=== PATIENT | male | born 1980 | race Caucasian/White ===

== ENCOUNTER 2020-01-12 14:50 | Outpatient (REF) | payer MEDICAID, SELFPAY ==
--- NOTE | 2020-01-12 | MM_ITS ---
EXAMINATION: MM DIAGNOSTIC DIGITAL BREAST TOMOSYNTHESIS, BILATERAL US DIAGNOSTIC ULTRASOUND BREAST, RIGHT CLINICAL INFORMATION: 39-year-old male with palpable fullness and pain retroareolar right breast for one week. No prior breast imaging. COMPARISON: None (current study represents initial baseline exam). TECHNIQUE: Digital breast tomosynthesis is performed in both the craniocaudal and mediolateral oblique views along with computer-aided detection (CAD). Synthesized 2D images are generated from the tomosynthesis. Ultrasound right breast is targeted to the area of clinical concern retroareolar and periareolar right breast. Grayscale imaging and color Doppler are performed without and with harmonics. FINDINGS: There are scattered areas of fibroglandular density (ACR BI-RADS breast composition Category b). There is typical gynecomastia type pattern retroareolar and central right breast. There is trace involvement retroareolar left breast. There is no mass or architectural abnormality. No abnormal calcifications. The axilla and skin contours are unremarkable. There is no skin thickening or coarsening of the stromal markings. Ultrasound right breast demonstrates gynecomastia type parenchymal pattern. There is no additional mass or architectural abnormality or duct ectasia. No skin thickening or edema tracking in soft tissue planes. Results are discussed with the patient at time of visit using an animal geneticist. IMPRESSION: Asymmetric gynecomastia, greater on right. ASSESSMENT: BI-RADS 2: Benign RECOMMENDATION: Patient should be managed based on the clinical impression.
== END 2020-01-12 14:51 | disposition home or self-care (01) ==
LOC: HO.MAMMO 14:50
PROVIDERS: Visit Provider Emergency Medicine
DX: N64.4 Mastodynia (principal)
CPT/HCPCS: 76642; 77062; 77066; 78013

== ENCOUNTER 2020-07-21 11:39 | Outpatient (REF) | payer MEDICAID, SELFPAY ==
[2020-07-21 12:10] LABS: COVID-19 Test Negative (Negative); IDNOW Serial# 55D5AD1C
== END 2020-07-21 11:40 | disposition home or self-care (01) ==
LOC: HO.LAB 11:39
PROVIDERS: Visit Provider Internal Medicine
DX: Z20.822 Contact with and (suspected) exposure to COVID-19 (principal)
CPT/HCPCS: 36415; 87635; C9803

== ENCOUNTER 2024-01-20 12:02 | Outpatient (REF) | payer MEDICAID, SELFPAY ==
[2024-01-20 13:51] LABS: Estimated Average Glucose 108 mg/dL; Hemoglobin A1C 130.8345 umol/L; Hemoglobin A1c % 5.4 % (<6.0); Total Hemoglobin (HGBA1C) 3699.9177 umol/L
[2024-01-20 14:10] LABS: Alanine Aminotransferase 21 U/L (0-40); Albumin Level 4.4 g/dL (3.5-5.0); Alkaline Phosphatase 80 U/L (39-117); Anion Gap 12 (12-20); Aspartate Amino Transferase 29 U/L (5-37); Bilirubin Direct 0.1 mg/dL (0.0-0.5); Bilirubin Total 0.3 mg/dL (0.0-1.0); Blood Urea Nitrogen 13 mg/dL (9-16); Calcium 9.7 mg/dL (8.4-10.2); Carbon Dioxide 29 mmol/L (22-29); Chloride 103 mmol/L (96-108); Cholesterol 152 mg/dL (<200); Estimated Glomerular Filt Rate > 60; Glucose Random 101 mg/dL (60-115); HDL Cholesterol 36 mg/dL (>40); Potassium 3.7 mmol/L (3.3-5.1); Sodium 140 mmol/L (135-145); Triglycerides 431 mg/dL (<150)
[2024-01-20 14:28] LABS: TSH reflex Free T4 2.91 uIU/mL (0.32-4.0); Vitamin D 25-OH Total 25.5 ng/mL (>30)
[2024-01-21 10:11] LABS: HIV AB/AG Nonreactive (Nonreactive); HIV Num 1 0.05 S/CO (0.00-0.99); ~HepC Num1 0.09 S/CO (0.00-0.79); ~Hepatitis C Antibody Nonreactive (Nonreactive)
== END 2024-01-20 12:03 | disposition home or self-care (01) ==
LOC: HO.HHCL 12:02
PROVIDERS: Visit Provider Family Medicine
DX: E55.9 Vitamin D deficiency, unspecified (principal); Z11.3 Encounter for screening for infections with a predominantly sexual mode of transmission; E66.812 Obesity, class 2; E88.82 Obesity due to disruption of MC4R pathway; Z15.2 Genetic susceptibility to obesity; Z68.36 Body mass index [BMI] 36.0-36.9, adult; E78.5 Hyperlipidemia, unspecified; I10 Essential (primary) hypertension
CPT/HCPCS: 36415; 80048; 80061; 80076; 82306; 83036; 84443; 86803; 87389

== ENCOUNTER 2025-01-25 16:24 | Inpatient (IN) | payer OTHER, SELFPAY ==
--- NOTE | ~2025-01-25 | CT_ITS ---
CLINICAL HISTORY: chronic headaches, TBI hx *called floor 1900, floor will call back* CT head without contrast Comparison: None provided Findings: No intra-axial mass, midline shift, hydrocephalus, or acute hemorrhage. No significant atrophy-like change or white matter disease. There is no significant sinus or mastoid fluid. The orbits are within normal limits. No skull fracture. IMPRESSION: 1. No acute intracranial findings. This document has been electronically signed by: Johann Cui MD on 02/05/2025 12:13:03
--- NOTE | ~2025-01-25 | XR_ITS ---
EXAMINATION: XR LUMBOSACRAL SPINE WITH OBLIQUES CLINICAL INFORMATION: pain increase COMPARISON: May 25, 2014 x-rays not available on PACS. TECHNIQUE: AP oblique and lateral views. FINDINGS: Grade 1 anterolisthesis at L5-S1 secondary to spondylolysis pars interarticulares. Vacuum phenomenon at L5-S1. Endplate sclerosis at L5-S1. Spina bifida occulta S1. No lytic or blastic lesions. Abundant stool without intestinal obstruction pattern, large intestine. 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 Electronically signed by: Tremaine Barboza MD 02/07/2025 02:47 PM EST
[2025-01-25 16:28] VITALS: BP 149/72; PULSE 60; RESP 22; TEMP 36.7; O2SAT 99; BMI 36.2
[2025-01-25 16:51] VITALS: BP 149/72; PULSE 60; RESP 22; TEMP 36.7; O2SAT 99
--- NOTE | 2025-01-25 17:07 | ED_ITS ---
HPI - Psych General Chief Complaint: Psychiatric Symptoms Stated Complaint: SI Time Seen by Provider: 01/25/25 16:37 History of Present Illness ED Provider: Gatito Haas MD HPI Narrative: 44-year-old male with psychiatric complaint. Daily heroin use, SI with plan to jump in front of a truck, depressed Related Data Home Medications ?Medication ?Instructions ?Recorded ?Confirmed methadone 10 mg/mL oral 110 mg PO DAILY 01/26/25 concentrate (Methadone Intensol) Allergies Allergy/AdvReac Type Severity Reaction Status Date / Time Penicillins (PENICILLINS) Allergy Unknown UNKNOWN Verified 01/25/25 19:26 [facility] Social History Social History Household Members: Family Housing: Apartment Housing Other:: pt reports being homeless after leaving Do you presently have visiting nurse or other home services: No Patient Tobacco Use Status: Never used Tobacco Smoked in Last 30 Days: No Use of substances other than those prescribed or required for medical reasons: Yes Substance Use Type: Crack/Cocaine and Heroin Substance Use Frequency: Daily Last Used Substance: Hours (ago) Currently Displaying Signs/Symptoms of Drug Intoxication Withdrawal: No Have you been hit, kicked, punched, or otherwise hurt by someone within the past year? If so, by whom?: No Do you feel safe in your current relationship?: No Current Relationship Is there a partner from a previous relationship who is making you feel unsafe now?: No Are you made to feel afraid or neglected: No Spiritual Healthcare Practices: n/a Ep[employer]opalian Healthcare Practices: n/a Cultural Healthcare Practices: n/a Advance Directives: No Advance Directives Information Provided: No Do you have thoughts of harming others: Vague Do you have a plan to hurt others: No Plan Recently lost weight without trying: No How much weight loss: Not applicable Eating poorly because of decreased appetite: No Nutrition screen score: 0 Nutrition Risks: No Nutritional Risk Poor oral hygiene: No Physical Exam 2 Exam: Exam: EXAM: Gen: Alert, awake, well appearing, well hydrated. Head: Atraumatic Eyes: Anicteric, Normal conjunctiva. ENT: Moist mucosa, no pallor. ? Neck: Supple. Skin: ?No observable rash or bruising on exposed or examined skin Respiratory: Breathing comfortably, No distress.Clear to auscultation bilaterally, symmetric chest expansion, No wheeze, rales, ronchi. Cardiovascular: Regular rate and rhythm. No murmurs or rub. Well perfused periphery, warm extremities. No edema. ? Abdominal: No focal tenderness. Soft, no objective distension. No palpable masses or obvious organomegaly. ?No guarding, no rebound tenderness or other peritoneal findings. : No flank tenderness. Neuro: Alert. Gross movement of all extremities intact. ?Cranial nerve 2-12 grossly intact Psych: Calm. Cooperative. MSK: No grossly visible deformity. Vital signs: See flowsheet Vital Signs: Vital Signs: Last Vital Signs Temp 97.7 F 01/27/25 08:00 Pulse 85 01/27/25 08:00 Resp 18 01/27/25 08:00 BP 150/89 H 01/27/25 08:00 Pulse Ox 97 01/27/25 08:00 O2 Del Method Room Air 01/27/25 08:00 BMI result Body Mass Index 36.2 Course Reevaluation(s) Reevaluation #1: Time: 05:58 Date: 01/26/25 Provider: Rodolfo Sanderson MD Patient in physician observation for psychiatric evaluation.? No acute events reported overnight. No current complaints. VS stable.? Patient is in bed search status/pending CARE team evaluation. Will continue to monitor. Reevaluation #2: 01/26/2025 13:00 the patient will be admitted to the psychiatric unit this will end the ED observation status Time: 13:16 Medications Administered Generic Name Dose Route Start Last Admin Trade Name Freq PRN Reason Stop Dose Admin Acetaminophen 650 mg 01/26/25 12:47 01/27/25 15:20 Acetaminophen 325 Mg Tablet PO 650 mg Q6H PRN Administration Headache/Pain, Scale 1-10 Hydroxyzine HCl 25 mg 01/26/25 12:47 01/27/25 02:36 Hydroxyzine Hcl 25 Mg Tablet PO 25 mg Q6H PRN Administration mild anxiety Methadone HCl 110 mg 01/27/25 09:00 01/27/25 07:50 Methadone Hcl 20 Mg/2 Ml Oral.Conc PO 110 mg DAILY CUCA Administration Trazodone HCl 50 mg 01/26/25 12:47 01/27/25 04:09 Trazodone Hcl 50 Mg Tablet PO 50 mg BEDTIME MRX1 PRN Administration Insomnia Discontinued Medications Generic Name Dose Route Start Last Admin Trade Name Freq PRN Reason Stop Dose Admin Clonazepam 1 mg 01/25/25 19:27 01/25/25 19:48 Clonazepam 1 Mg Tablet PO 01/25/25 19:28 1 mg ONCE ONE Administration Clonidine HCl 0.1 mg 01/25/25 19:27 01/25/25 19:48 Clonidine Hcl 0.1 Mg Tablet PO 01/25/25 19:28 0.1 mg ONCE ONE Administration Protocol Ibuprofen 400 mg 01/25/25 22:15 01/25/25 22:20 Ibuprofen 400 Mg Tablet PO 01/25/25 22:16 400 mg ONCE ONE Administration Methadone HCl 110 mg 01/26/25 10:58 01/26/25 11:18 Methadone Hcl 20 Mg/2 Ml Oral.Conc PO 01/26/25 10:59 110 mg ONCE ONE Administration Sertraline HCl 25 mg 01/27/25 15:08 01/27/25 15:21 Sertraline Hcl 25 Mg Tablet PO 01/27/25 15:09 25 mg ONCE ONE Administration Trazodone HCl 100 mg 01/26/25 02:46 01/26/25 02:55 Trazodone Hcl 100 Mg Tablet PO 01/26/25 02:47 100 mg ONCE ONE Administration Medical Decision Making Medical Decision Making MDM Narrative: Medical Decision Makin M with OUD. Heroin this AM. No acute intoxication or withdrawal syndrome. Labs unremarkable. Preliminary Favored Differential Diagnosis: SI, OUD among additional considered etiologies Testing Interpreted Independently: ?See below for details Radiology or Lab testing Results Reviewed: ?See below for details Consults: ?See below for details Independent Historians/External Chart Reviews: ?See below for details Social Determinants of Health Impacting MDM/Planning: ?See below for details Consult Healthcare Provider Management of the patient was discussed with: Behavioral Health Provider Lab Data MDM Lab Attestation statement: I reviewed the patient's lab results. 01/25/25 18:16 01/25/25 18:16 Labs: Lab Results 01/25/25 01/25/25 Range/Units 17:26 18:16 WBC 8.7 (4.8-10.8) X10*3/uL RBC 4.26 L (4.60-5.80) X10*6/uL Hgb 13.2 L (14.0-18.0) g/dl Hct 40.4 L (42.0-52.0) % MCV 94.8 (80.0-98.0) fL MCH 31.0 (27.0-33.0) pg MCHC 32.7 (31.0-36.0) g/dl RDW 11.7 (11.0-16.0) % Plt Count 263 (160-400) X10*3/uL MPV 9.7 (9.4-12.4) fL Immature Gran % (Auto) 0.7 H (0.0-0.4) % Neut % (Auto) 39.6 L (45-73) % Lymph % (Auto) 52.5 H (20-40) % [place] % (Auto) 5.0 (2-11) % Eos % (Auto) 1.7 (0-4) % Baso % (Auto) 0.5 (0-2) % Lymph # (Auto) 4.6 (1.2-4.9) X10*3/uL [place] # (Auto) 0.4 (0.1-1.2) X10*3/uL Eos # (Auto) 0.2 (0.0-0.4) X10*3/uL Baso # (Auto) 0.0 (0.0-0.2) X10*3/uL Abs Immat Gran (auto) 0.06 H (0.00-0.03) X10*3/uL Absolute Neuts (auto) 3.5 (2.0-8.3) x10*3/uL Absolute Nucleated RBC 0.000 (0.0-0.012) X10*3/uL Nucleated RBC % (auto) 0.0 (0.0-0.2) /100WBC Sodium 140 (135-145) mmol/L Potassium 3.8 (3.3-5.1) mmol/L Chloride 106 (96-108) mmol/L Carbon Dioxide 28 (22-29) mmol/L Anion Gap 10 L (12-20) BUN 11 (9-16) mg/dL Creatinine 0.72 (0.5-1.4) mg/dL Estim Creat Clear Calc 135.2 Estimated GFR > 60 Random Glucose 85 (60-115) mg/dL Calcium 8.9 D (8.4-10.2) mg/dL Total Bilirubin 0.2 (0.0-1.0) mg/dL AST 34 (5-37) U/L ALT 13 (0-40) U/L Alkaline Phosphatase 77 (39-117) U/L Total Protein 6.7 (6.5-8.0) g/dL Albumin 4.4 (3.5-5.0) g/dL Urine Color Yellow Urine Appearance Clear Urine pH 6.0 (5.0-9.0) Ur Specific [place] 1.020 (1.005-1.025) Urine Protein Negative (Neg-Trace) mg/dL Urine Glucose (UA) Negative (Negative) mg/dL Urine Ketones Negative (Negative) mg/dL Urine Blood Negative (Negative) Urine Nitrite Negative (Negative) Ur Leukocyte Esterase Negative (Negative) Urine Opiates Screen POSITIVE H (Not Detect) Ur Buprenorphine Scrn Not Detected (Not Detect) ng/mL Ur Oxycodone Screen Not Detected (Not Detect) ng/mL Urine Methadone Screen Positive H (Not Detect) ng/mL Urine Fentanyl Screen POSITIVE H (Not Detect) Ur Barbiturates Screen Not Detected (Not Detect) Ur Phencyclidine Scrn Not Detected (Not Detect) Ur Amphetamines Screen Not Detected (Not Detect) U Benzodiazepines Scrn Not Detected (Not Detect) Urine Cocaine Screen POSITIVE H (Not Detect) U Marijuana (THC) Screen Not Detected (Not Detect) Ethyl Alcohol < 10 mg/dL Discharge Plan Discharge Clinical Impression: Suicidal ideation Patient Disposition: Admitted As Inpatient Interventions: Admission Worksheet (ED) Last Done: 01/26/25 13:11 Discharge Date/Time: 01/26/25 13:11
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
[2025-01-25 17:35] LABS: Appearance Urine Clear; Glucose Urine UA Negative (Negative); PH 6.0 (5.0-9.0); Specific Gravity - Urine 1.020 (1.005-1.025)
[2025-01-25 17:51] LABS: Cannabinoid Screen Urine Not Detected (Not Detect)
--- NOTE | 2025-01-25 18:18 | PC.NURSE ---
pt provided with meal tray. Pt is calm, cooperative. RR even and unlabored, no visible s/s of distress.
[2025-01-25 18:20] LABS: MANUAL DIFF FLAG NO
[2025-01-25 18:42] LABS: Alanine Aminotransferase 13 U/L (0-40); Albumin Level 4.4 g/dL (3.5-5.0); Alkaline Phosphatase 77 U/L (39-117); Anion Gap 10 (12-20); Aspartate Amino Transferase 34 U/L (5-37); Blood Urea Nitrogen 11 mg/dL (9-16); Calcium 8.9 mg/dL (8.4-10.2); Carbon Dioxide 28 mmol/L (22-29); Chloride 106 mmol/L (96-108); Creatinine Clr Calc Pharmacy 135.2; Estimated Glomerular Filt Rate > 60; Potassium 3.8 mmol/L (3.3-5.1); Sodium 140 mmol/L (135-145); Total Protein 6.7 g/dL (6.5-8.0)
[2025-01-25 18:48] LABS: Hematocrit 40.4 % (42.0-52.0); Hemoglobin 13.2 g/dl (14.0-18.0); Imm Gran Abs Auto 0.06 X10*3/uL (0.00-0.03); Imm Gran Pct Auto 0.7 % (0.0-0.4); Lymphocytes Absolute Auto 4.6 X10*3/uL (1.2-4.9); Mean Corpuscular HGB Conc 32.7 g/dl (31.0-36.0); Mean Corpuscular Hemoglobin 31.0 pg (27.0-33.0); Mean Corpuscular Volume 94.8 fL (80.0-98.0); NRBC Abs Auto 0.000 X10*3/uL (0.0-0.012); NRBC Pct Auto 0.0 /100WBC (0.0-0.2); Platelet Count 263 X10*3/uL (160-400); Red Blood Count 4.26 X10*6/uL (4.60-5.80); White Blood Count 8.7 X10*3/uL (4.8-10.8)
--- NOTE | 2025-01-25 19:05 | MHC.CARE ---
Pt will be a dual dx bedsearch. Section 12a in chart for safety.
--- NOTE | 2025-01-25 19:41 | ECG_ITS ---
Test Reason : MED CLEARANCE Blood Pressure : */* mmHG Vent. Rate : 66 BPM Atrial Rate : 66 BPM P-R Int : 156 ms QRS Dur : 102 ms QT Int : 440 ms P-R-T Axes : 5 53 45 degrees QTcB Int : 461 ms Normal sinus rhythm Nonspecific T wave abnormality Prolonged QT Abnormal ECG When compared with ECG of 28-May-2018 01:34, Nonspecific T wave abnormality now evident in Lateral leads Referred By: Gatito Haas Electronically Signed By: NAFISA XIE
[2025-01-25 19:48] VITALS: BP 146/83; PULSE 61; RESP 19; TEMP 36.8; O2SAT 99
--- OUTSIDE RECORDS SUMMARY | 2025-01-25 20:17 | XMS_ITS | Clinical Summary ---
Author Organization [employer] Address [address] [place] [address] Care Team Providers Care Final Inspector Truck Trailer Name Role Phone Peace Harvey MD Primary Care Provider + [phone] Sobeida Nicholson OD Unavailable [phone] Allergies Active Allergy Reactions Criticality Noted Date Comments Penicillins 06/03/2022 Medications * This document contains information received from the source organization and may not represent a complete record from that organization. albuterol (ProAir HFA) 108 (90 Base) MCG/ACT inhalerIndication s:Mild intermittent asthma without complication Inhale 2 puffs every 4 (four) hours if needed for wheezing. 18 g 1 4 Active lisinopril 10 MG tabletIndications :Hypertension, unspecified type Take 1 tablet (10 mg) by mouth Once per day. 30 tablet 11 4 02/10/20 25 Active ibuprofen 800 MG tablet Take 1 tablet (800 mg) by mouth every 8 (eight) hours if needed for moderate pain, fever or headaches. 30 tablet 5 Active loratadine (Claritin) 10 MG tablet TAKE 1 TABLET BY MOUTH DAILY 90 tablet 5 Active fluticasone (Flonase) 50 MCG/ACT nasal spray INSTILL 1-2 SPRAYS IN EACH NOSTRIL ONCE DAILY. SHAKE GENTLY. BEFORE FIRST USE, PRIME PUMP. CLEAN TIP 48 g 5 Active Active Problems Problem Noted Date Diagnosed Date Cardiac risk counseling 02/19/2024 Overview (02/19/2024): Calculated 02/19/24: borderline risk The 10-year ASCVD risk score (Rosy DK, et al., 2019) is: 5.9% Values used to calculate the score: Age: 43 years Sex: Male Is Non- : No Diabetic: No Tobacco smoker: Yes Systolic Blood Pressure: 132 mmHg Is BP treated: Yes HDL Cholesterol: 36 mg/dL Total Cholesterol: 152 mg/dL Lab Results Component Value Date LDLCHOLCAL TNP 01/20/2024 -Atherosclerotic Cardiovascular Disease (ASCVD) Risk Calculator is intended for a person age 40-79 without ASCVD and with LDL-cholesterol < 190/mg/dl to assesses the chances of developing heart disease over the next 10 years. -Tobacco cessation: discussed -Statin therapy:N/A -Importance of moderate physical activity and nutrition interventions discussed. Colon cancer screening 01/05/2024 Overview (01/05/2024): -Cologuard sent 01/05/24 Assessment & Plan (01/05/2024 7:55 PM EDT): -Cologuard sent 01/05/24 Left leg pain 01/05/2024 Overview (01/05/2024): Varicose veins on exam. Will check for DVT. Pt agrees with plan. -DVT, Doppler US ordered 01/05/24 Assessment & Plan (01/05/2024 7:58 PM EDT): Varicose veins on exam. Will check for DVT. Pt agrees with plan. -DVT, Doppler US ordered 01/05/24 Other specified health status 01/17/2023 Overview (01/05/2024): -next physical exam due after 01/04/25 -referral to [facility] sent 01/05/24 -dental home encouraged 01/05/24 -health care proxy filed 01/05/24 Assessment & Plan (01/05/2024 7:54 PM EDT): -next physical exam due after 01/04/25 -referral to [facility] sent 01/05/24 -dental home encouraged 01/05/24 -health care proxy filed 01/05/24 Dyslipidemia 09/11/2021 Overview (11/17/2024): Lab Results Component Value Date CHOL 152 01/20/2024 TRIG 431 (H) 01/20/2024 HDL 36 (L) 01/20/2024 LDLCHOLCAL TNP 01/20/2024 -continue lifestyle modification -ordered labs 01/05/24 Assessment & Plan (01/05/2024 7:52 PM EDT): No results found for: CHOL , TRIG , HDL , LDLCHOLCAL , LDL -continue lifestyle modification -ordered labs 01/05/24 Vitamin D deficiency 09/11/2021 Overview (11/17/2024): Lab Results Component Value Date [id number] 25.5 (L) 01/20/2024 Assessment & Plan (01/05/2024 7:56 PM EDT): No results found for: [id number] Mild intermittent asthma 12/30/2016 Overview (01/05/2024): Well-controlled on albuterol PRN. Assessment & Plan (04/24/2024 6:33 PM EST): - continue albuterol Assessment & Plan (01/05/2024 7:56 PM EDT): Well-controlled on albuterol PRN. Hypertension 01/02/2012 Overview (01/05/2024): -Blood pressure is at goal -Continue lifestyle modifications -Continue current medications Assessment & Plan (04/24/2024 6:32 PM EST): - elevated today - continue current medications - work on lifestyle modifications Assessment & Plan (01/05/2024 7:51 PM EDT): -Blood pressure is at goal -Continue lifestyle modifications -Continue current medications Severe episode of recurrent major depressive disorder, without psychotic features (CMS/HCC) 01/02/2012 Overview (01/05/2024): Denies suicidial or homacidial ideation. Therapist and psychiatrist offered. -seen by [facility] 01/05/24, pt prefers to self refer to [facility] -referral to oil recovery operator placed 01/05/24 Assessment & Plan (01/05/2024 7:55 PM EDT): Denies suicidial or homacidial ideation. Therapist and psychiatrist offered. -seen by [facility] 01/05/24, pt prefers to self refer to [facility] -referral to oil recovery operator placed 01/05/24 Backache 01/02/2012 Overview (01/17/2023): Chornic since age 13. No focal motor neruo deficits. Per pt, pain unchanged. X ray 11/2013 revealed mild anterolisthesis of L5 on S1. Alignment was otherwise anatomic. No additional significant degenerative change. He was previously followed by [facility] for injections, last seen 2013 and patient relations liaison Dr. Iyer 06/2014. He did not finish physical therapy. He decliens referral today. He is not a candidate for chronic opiates given chronicity of pain, hx narcotic dependance and current participation in Methadone program. Continue prn ibuprofen and acetmenophen which he takes 1-2 times per week. Continue treatment of depsression and stressors with therapist. Improtance of good sleep hygine discussed. Advise low back pain precautions. Seek medical attention for worsening sumptoms. He agrees with the plan. Assessment & Plan (01/05/2024 7:55 PM EDT): Chornic since age 13. No focal motor neruo deficits. Per pt, pain unchanged. X ray 11/2013 revealed mild anterolisthesis of L5 on S1. Alignment was otherwise anatomic. No additional significant degenerative change. He was previously followed by [facility] for injections, last seen 2013 and patient relations liaison Dr. Iyer 06/2014. He did not finish physical therapy. He decliens referral today. He is not a candidate for chronic opiates given chronicity of pain, hx narcotic dependance and current participation in Methadone program. Continue prn ibuprofen and acetmenophen which he takes 1-2 times per week. Continue treatment of depsression and stressors with therapist. Improtance of good sleep hygine discussed. Advise low back pain precautions. Seek medical attention for worsening sumptoms. He agrees with the plan. Polysubstance abuse 01/02/2012 Overview (01/05/2024): Long-term methadone maintenance, but not abstinent of illicit drugs. -referral for oil recovery operator placed by [facility] 01/05/24 Assessment & Plan (01/05/2024 7:55 PM EDT): Long-term methadone maintenance, but not abstinent of illicit drugs. -referral for oil recovery operator placed by [facility] 01/05/24 Tobacco dependence syndrome 01/02/2012 Overview (01/05/2024): -Cigg/day: 3 cigarettes/week -Age started: 14 -Total years smokin -Pack year history: Encouraged smoking cessation resources such as pharmacomtherapy, [facility] smoking cessation group, and [facility] pharmacy smoking cessation clinic Discussed USPSTF recommends annual lung cancer screening with low dose CT in people who meet the following criteria: -ages 50 to 80 years. -have a 20 pack-year smoking history. -currently smoke cigarettes or quit within the past 15 years. -LDCT: na Assessment & Plan (04/24/2024 6:34 PM EST): - follow PCP's recommendation Assessment & Plan (01/05/2024 7:54 PM EDT): -Cigg/day: 3 cigarettes/week -Age started: 14 -Total years smokin -Pack year history: Encouraged smoking cessation resources such as pharmacomtherapy, [facility] smoking cessation group, and [facility] pharmacy smoking cessation clinic Discussed USPSTF recommends annual lung cancer screening with low dose CT in people who meet the following criteria: -ages 50 to 80 years. -have a 20 pack-year smoking history. -currently smoke cigarettes or quit within the past 15 years. -LDCT: na Resolved Problems Problem Noted Date Diagnosed Date Resolved Date Supraclavicular lymphadenopathy 09/04/2016 01/05/2024 Urticaria 09/04/2016 01/05/2024 Hypertriglyceridemia 10/05/2012 023 Gastroesophageal reflux disease 01/02/2012 01/05/2024 Tinea corporis 01/02/2012 01/05/2024 Encounters Date Type Department Care Team Description 11/16/2024 Telephone [facility] [address] [place] [phone] Peace Harvey MD Chart Prep from Last 3 Months Immunizations Immunization Administration Dates Next Due Hep A, Adult 01/05/2024 Hep B, adult 01/05/2024 Influenza injectable quadrivalent preservative f ree 12/27/2020,06/07/2015 Influenza, IIV3, injectable 01/17/2014 Influenza, Split (incl. purified surface antigen ) 01/18/2013 Influenza, seasonal, injectable, preservative fr ee 01/05/2024 Moderna Covid-19 Vaccine 6+ Bivalent 03/28/2022 Pfizer Covid-19 Vaccine 12+ 01/05/2024 Pneumococcal Conjugate PCV 20 01/05/2024 Tdap 01/17/2014 Family History Medical History Relation Name Comments Diabetes Sister (+) diabetic re tinopathy Relation Name Status Comments Sister Social History Tobacco Use Types Packs/Day Years Used Date Smoking Tobacco: Every Day Cigarettes Smokeless Tobacco: Never Tobacco Cessation:Ready to Q uit: Not Asked; Counseling Given: Not Answered Alcohol Use Standard Drinks/Week Comments Never 0 (1 standard drink = 0.6 oz pur e alcohol) Depression Answer Date Recorded Patient Health Questionnaire-9 Score 19 01/05/2024 Patient Health Questionnaire-9 Score 19 01/05/2024 Last PHQ-9: Questionnaire Data Not on file 1 Housing Stability Answer Date Recorded What is your housing situation today? I have liss cox 01/05/[address] you li ve. Do you have problems with any of the following? None of the above 01/05/2024 Food Insecurity Answer Date Recorded Within the past 12 months, y ou worried that your food would run out before you got money to buy more: Never True 01/05/2024 Within the past 12 months,th e food you bought just didn't last and you didn't have enough money to get more: Never True 09/2023 Transportation Answer Date Recorded In the past 12 months, has l ack of transportation kept you from medical appts, meetings, work or from getting things needed for daily living? No 01/05/2024 Utilities Answer Date Recorded In the past 12 months, has t he electric, gas, oil or water company threatened to shut off services in your home? No 01/05/2024 Depression Answer Date Recorded Patient Health Questionnaire-2 Score 6 01/05/2024 Internet Access Answer Date Recorded Internet Access Q1 No 01/05/2024 Internet Access Q2 I do not want or need it 09/2023 Sex and Gender Information Value Date Recorded Sex Assigned at Male 01/28/2022 10:20 AM EDT Legal Sex Male 10:20 AM EDT Gender Identity Male 01/28/2022 10:20 AM EDT Sexual Orientation Straight 01/28/2022 10 :20 AM EDT Last Filed Vital Signs Vital Sign Reading Time Taken Comments Blood Pressure 144/50 04/20/2024 3:52 PM EST Pulse 79 04/20/2024 3:52 PM EST Temperature 36 C (96.8 F) 04/20/2024 3:52 PM EST Respiratory Rate 22 04/20/2024 3:52 PM EST Oxygen Saturation 95% 04/20/2024 3:52 PM EST Inhaled Oxygen Concentration - - Weight 102 kg (224 lb 9.6 oz) 04/20/2024 3:52 PM EST Height 160 cm (5' 3 ) 01/05/2024 9:02 AM EDT Body Mass Index 39.79 01/05/2024 9:02 AM EDT Plan of Treatment Health Maintenance Due Date Last Done Comments CT Colonography 1979 Colonoscopy 1979 Colorectal Cancer Screening 1979 FIT DNA/Cologuard 1979 FIT 1979 FOBT 1979 Sigmoidoscopy 1979 Disability Screening 1979 Alcohol/Substance Use Screening 1991 Family Planning (PISQ) 1994 HPV Vaccines (1 - Male 3-dose series) 1994 DTaP/Tdap/Td Vaccines (2 - Td or Tdap) 01/18/2024 01/17/2014 Hepatitis B Vaccines (2 of 3 - 19+ 3-dose series) 02/02/2024 01/05/2024 Depression Monitoring 07/05/2024 01/05/2024, 024 Influenza Vaccine (#1) 2024 , 12/27/2020, 06/07/2015, Additional history exists SDOH Screening 01/04/2025 01/05/2024 Tobacco Screening 04/21/2025 04/21/2024 Lipid Panel 01/19/2029 01/20/2024, 02/28/2020 Zoster Vaccines (1 of 2) 2029 RSV Patients and Patients Aged 60 years or older (1 - 1-dose 75+ series) 2054 COVID-19 Vaccine Completed 01/05/2024, , 10/26/2021, Additional history exists Hepatitis A Vaccines Aged Out 01/05/2024 No long er eligible based on patient's age to complete this topic Pneumococcal Vaccine: Pediatrics (0 to 5 Years) and At-Risk Patients (6 to 49) Years Completed 01/05/2024 HIV Screening Completed 01/20/2024, 01/31, 02/28/2020 Hepatitis C Screening Completed 01/20/2024 , 02/28/2020, 02/28/2020 HIB Vaccines Aged Out No longer eligi ble based on patient's age to complete this topic IPV Vaccines Aged Out No longer eligi ble based on patient's age to complete this topic Meningococcal B Vaccine Aged Out No l onger eligible based on patient's age to complete this topic Meningococcal Vaccine Aged Out No shanelle owen eligible based on patient's age to complete this topic RSV under 20 months Aged Out No longe r eligible based on patient's age to complete this topic Rotavirus Vaccines Aged Out No longer eligible based on patient's age to complete this topic Procedures Procedure Name Priority Date/Time Associated Diagnosis Comments CBC WITH AUTO DIFFERENTIAL Routine 01/25/2025 6:16 PM EDT ETHANOL Routine 01/25/2025 6:16 PM EDT COMPREHENSIVE METABOLIC PANEL Routine 01/25/2025 6:16 PM EDT DRUG MONITOR, PANEL 1, SCREEN, URINE Routine 01/25/2025 5:26 PM EDT URINALYSIS WITH REFLEX MICROSCOPIC Routine 01/25/2025 5:26 PM EDT HEPATITIS C AB W/REFL TO HCV RNA, QN, PCR Routine 01/20/2024 12:05 PM EDT Routine screening for STI (sexually transmitted infection) HIV 1/2 ANTIGEN/ANTIBODY, FOURTH GENERATION W/RFL Routine 01/20/2024 12:05 PM EDT Routine screening for STI (sexually transmitted infection) LIPID PANEL, STANDARD Routine 01/20/2024 12:05 PM EDT Dyslipidemia from Last 3 Months or Most Recently Relevant to Health Maintenance Results * Ethanol (01/25/2025 6:16 PM EDT) ETHANOL (MG/DL) IN SER/PLAS <10 mg/dL [facility] Comment:Serum/plasma ethanol results are to be used formedical/treatment purposes only. 01/25/2025 6:16 PM EDT 01/25/2025 6:19 PM EDT us Generic External Data Provider LAB BLOOD ORDERAB LES Final Result [facility] [address] [place] [phone] * (ABNORMAL) CBC auto differential (01/25/2025 6:16 PM EDT) White Blood Count 8.7 4.8 - 10.8 X10*3/uL [facility] Red Blood Count 4.26(L) 4.60 - 5.80 X10*6/uL [facility] Hemoglobin 13.2(L) 14.0 - 18.0 g/dl [facility] Hematocrit 40.4(L) 42.0 - 52.0 % [facility] Mean Corpuscular Volume 94.8 80.0 - 98.0 fL [facility] Mean Corpuscular Hemoglobin 31.0 27.0 - 33.0 pg [facility] Mean Corpuscular HGB Conc 32.7 31.0 - 36.0 g/dl [facility] Red Cell Distribution Width 11.7 11.0 - 16.0 % [facility] Platelet Count 263 160 - 400 X10*3/uL [facility] Mean Platelet Volume 9.7 9.4 - 12.4 fL [facility] Neutrophils Percent Auto 39.6(L) 45 - 73 % [facility] Imm Gran Pct Auto 0.7(H) 0.0 - 0.4 % [facility] Lymphocytes Percent Auto 52.5(H) 20 - 40 % [facility] Monocytes Percent Auto 5.0 2 - 11 % [facility] Eosinophils Percent Auto 1.7 0 - 4 % [facility] Basophils Percent Auto 0.5 0 - 2 % [facility] NRBC Pct Auto 0.0 0.0 - 0.2 /100WBC [facility] Neutrophils Absolute Auto 3.5 2.0 - 8.3 x10*3/uL [facility] Imm Gran Abs Auto 0.06(H) 0.00 - 0.03 X10*3/uL [facility] Lymphocytes Absolute Auto 4.6 1.2 - 4.9 X10*3/uL [facility] Monocytes Absolute Auto 0.4 0.1 - 1.2 X10*3/uL [facility] Eosinophils Absolute Auto 0.2 0.0 - 0.4 X10*3/uL [facility] Basophils Absolute Auto 0.0 0.0 - 0.2 X10*3/uL [facility] NRBC Abs Auto 0.000 0.0 - 0.012 X10*3/uL [facility] 01/25/2025 6:16 PM EDT 01/25/2025 6:19 PM EDT us Generic External Data Provider LAB BLOOD ORDERAB LES Final Result [facility] [address] [place] [phone] * (ABNORMAL) Comprehensive Metabolic Panel (01/25/2025 6:16 PM EDT) Sodium 140 135 - 145 mmol/L [facility] Potassium 3.8 3.3 - 5.1 mmol/L [facility] Chloride 106 96 - 108 mmol/L [facility] Carbon Dioxide 28 22 - 29 mmol/L [facility] Anion Gap 10(L) 12 - 20 [facility] Urea Nitrogen (BUN) 11 9 - 16 mg/dL [facility] Creatinine, Serum 0.72 0.5 - 1.4 mg/dL [facility] Creatinine Clr Calc Pharmacy 135.2 [facility] Comment:eGFR (calculated fro m the MDRD study equation) and eCrCl(calculated from the Cockcroft-Gault equation) are based ondifferent parameters and may not yield comparable results.If eCrCl result is absurd, please check patient'sheight/weight. Estimated Glomerular Filt Rate >60 [facility] Comment:Chronic Kidney Disea se: Estimated GFR < 60 mL/min/[id number] Kidney Disease: Estimated GFR < 15 mL/min/1.73m2 Glucose 85 60 - 115 mg/dL [facility] Calcium 8.9 8.4 - 10.2 mg/dL [facility] Bilirubin, Total 0.2 0.0 - 1.0 mg/dL [facility] Aspartate Amino Transferase 34 5 - 37 U/L [facility] Alanine Aminotransferase 13 0 - 40 U/L [facility] Total Protein 6.7 6.5 - 8.0 g/dL [facility] Albumin Level 4.4 3.5 - 5.0 g/dL [facility] Alkaline Phosphatase 77 39 - 117 U/L [facility] 01/25/2025 6:16 PM EDT 01/25/2025 6:19 PM EDT us Generic External Data Provider LAB BLOOD ORDERAB LES Final Result [facility] [address] [place] [phone] * (ABNORMAL) Drug Monitoring, Panel 1, Screen, Urine (01/25/2025 5:26 PM EDT) Opiate Screen Urine POSITIVE(A) Not Detect [facility] Comment:Opiate cut-off is 30 0 ng/mL.Positive results are unconfirmed and should not be used fornon-medical purposes. Barbiturates, Urine Not Detected Not Detect [facility] Comment:Barbiturate cut-off is 200 ng/mL.Positive results are unconfirmed and should not be used fornon-medical purposes. Phencyclidine Screen Urine Not Detected Not Detect [facility] Comment:Phencyclidine cut-of f is 25 ng/mL.Positive results are unconfirmed and should not be used fornon-medical purposes. Amphetamine Screen Urine Not Detected Not Detect [facility] Comment:Amphetamine cut-off is 1000 ng/mL.Positive results are unconfirmed and should not be used fornon-medical purposes. Benzodiazepines Screen Urine Not Detected Not Detect [facility] Comment:Benzodiazepine cut-o ff is 200 ng/mL.Positive results are unconfirmed and should not be used fornon-medical purposes. Cocaine Screen Urine POSITIVE(A) Not Detect [facility] Comment:Cocaine cut-off is 3 00 ng/mL.Positive results are unconfirmed and should not be used fornon-medical purposes. Cannabinoid Screen Urine Not Detected Not Detect [facility] Comment:Cannabinoid cut-off is 50 ng/mL.Positive results are unconfirmed and should not be used fornon-medical purposes. Methadone Screen, Urine Positive(A) Not Detect ng/mL [facility] Comment:Methadone cut-off is 300 ng/mL.Positive results are unconfirmed and should not be used fornon-medical purposes. FENTANYL URINE POSITIVE(A) Not Detect [facility] Comment:Fentanyl cut-off is 1 ng/mL.Positive results are unconfirmed and should not be used fornon-medical purposes. Oxycodone Urine Screen Not Detected Not Detect ng/mL [facility] Comment:Oxycodone cut-off is 100 ng/mL.Positive results are unconfirmed and should not be used fornon-medical purposes. Buprenorphine Screen Not Detected Not Detect ng/mL [facility] Comment:Buprenorphine cut-of f is 5 ng/mL.Positive results are unconfirmed and should not be used fornon-medical purposes. 01/25/2025 5:26 PM EDT 01/25/2025 5:30 PM EDT us Generic External Data Provider LAB URINE ORDERAB LES Final Result Performing Organization Address [facility]/ZIP Co de Phone Number [facility] [address] [place] [phone] * Urinalysis w/reflex microscopic (01/25/2025 5:26 PM EDT) Color Urine Yellow [facility] Appearance Urine Clear [facility] PH 6.0 5.0 - 9.0 [facility] Glucose Urine UA Negative Negative mg/dL [facility] Urine Blood Negative Negative [facility] Specific [place] - Urine 1.020 1.005 - 1.025 [facility] Urine Protein Negative Neg-Trace mg/dL [facility] Urine Ketones Negative Negative mg/dL [facility] Nitrite Urine Negative Negative [facility] Leukocyte Esterase Urine Negative Negative [facility] 01/25/2025 5:26 PM EDT 01/25/2025 5:30 PM EDT Narrative [facility] - 01/25/2025 5:42 PM EDT [id number], Clean Catch us Generic External Data Provider LAB URINE ORDERAB LES Final Result Performing Organization Address [facility]/ZIP Co de Phone Number [facility] [address] [place] [phone] * Hepatitis C Antibody with Reflex to HCV, RNA, Quantitative, Real-Time PCR (01/20/2024 12:05 PM EDT) Hepatitis C Antibody Nonreactive Nonreactive [facility] Comment:Antibodies to HCV no t detected; does not exclude early acuteHCV infection. Blood Venous blood specimen / Unknown 01/20/2024 12:05 PM EDT 01/20/2024 1:10 PM EDT Peace Harvey MD LAB BLOOD ORDERABLES Final Result Performing Organization Address [facility]/ZIP Co de Phone Number [facility] [address] [place] [phone] * HIV-1/2 Antigen and Antibodies, Fourth Generation, with Reflexes (01/20/2024 12:05 PM EDT) HIV AB/AG Nonreactive Nonreactive [facility] Comment:HIV-1 p24 Ag and/or HIV-1/HIV-2 Ab not detected.A test result that is nonreactive does not exclude thepossibility of exposure to or infection with HIV-1 and/orHIV-2. Nonreactive results in this assay for individualswith prior exposure to HIV-1 and/or HIV-2 may be due toantigen and antibody levels that are below the limit ofdetection of this assay.[employer] HIV Ag/Ab Combo assay result andsupplemental assay results should be interpreted inconjunction with the patient's clinical presentation,history and other laboratory results. If the results areinconsistent with clinical evidence, additional testing issuggested to confirm the result. Blood Venous blood specimen / Unknown 01/20/2024 12:05 PM EDT 01/20/2024 1:10 PM EDT Peace Harvey MD LAB BLOOD ORDERABLES Final Result Performing Organization Address [facility]/ZIP Co de Phone Number [facility] [address] [place] [phone] * (ABNORMAL) Lipid Panel, Standard (01/20/2024 12:05 PM EDT) Triglycerides 431(H) <150 mg/dL [facility] Comment:Desirable Triglyceri de: less than 150 mg/dLBorderline High Triglyceride 150-199 mg/dLHigh Triglyceride: 200-499 mg/dLVery High Triglyceride: greater than or equal to 5OO mg/dL Cholesterol 152 <200 mg/dL [facility] Comment:Desirable Cholestero l: less than 200 mg/dLBorderline High Cholesterol: 200-239 mg/dLHigh Cholesterol: greater than 239 mg/dL LDL Cholesterol Calculated TNP <100 mg/dL [facility] Comment:Unable to calculate the LDL. The formula of FriedwaldAnjely, and Ron is only valid if the triglycerides areless than 400 mg/dl. HDL Cholesterol 36(L) >40 mg/dL [facility] Comment:Desirable HDL: great er than 40 mg/dL Note: This HDL assay may give artificially low results in patients with liver disease. Blood Venous blood specimen / Unknown 01/20/2024 12:05 PM EDT 01/20/2024 1:10 PM EDT Peace Harvey MD LAB BLOOD ORDERABLES Final Result [facility] [address] [place] [address] [phone] from Last 3 Months or Most Recently Relevant to Health Maintenance Insurance [employer] Advance Directives Documents on File Type Date Recorded Patient Monitoring Engineer Expl anation Advance Directives and Living Will 01/08/2024 1:41 PM Health Care Proxy Care Teams Final Inspector Truck Trailer Relationship Specialty Start Date End Date Peace Harvey MD [address] [place] [id number] PCP - General Family Medicine 03/31/18 Sobeida Nicholson OD [address] [place] [id number] Optometry 06/01/24
[2025-01-25 20:30] VITALS: BP 137/75; PULSE 67
--- NOTE | 2025-01-25 22:28 | PC.NURSE ---
Assumed care at 1845. Presents with depressed mood, but cooperative with care. Able to make needs known. Speech clear and concise. Visible on the unit, using POD telephone. Accepted HS scheduled medications. Mouth checks completed. C/o 01/07 MD Bhavin TEAGUE made aware, order for Motrin obtained, pending effectiveness. Endorses passive SI, no plan/intent. Denies current HI/AVH. Agreeable to alert staff if feeling unsafe. EKG completed. 15 minute safety checks ongoing. Plan of care ongoing.
[2025-01-26 02:19] VITALS: BP 134/94; PULSE 66; RESP 16; TEMP 37; O2SAT 97
[2025-01-26 05:34] VITALS: RESP 18
--- NOTE | 2025-01-26 07:48 | PC.NURSE ---
Assumed care of patient at 0645, patient appears to be in no apparent distress this am, resting in bed, respirations even and unlabored. Continue plan of care for Dual Dx IPLOC
--- NOTE | 2025-01-26 09:15 | PHA.MEDREC ---
Pharmacy Consult ? Medication Reconciliation Pharmacy has reviewed the medication reconciliation completed by nursing.
[2025-01-26 09:22] VITALS: BP 138/87; PULSE 67; RESP 16; TEMP 36.6; O2SAT 96
--- NOTE | 2025-01-26 09:52 | HE.PHANOTE ---
METHADONE Pt last received methadone 110mg 01/24 @ 0602 with 5 take home bottles from [facility], , per Yoalnda FINCH.
[2025-01-26] MEDS: methADONE HCl 20 MG/2 ML ORAL.CONC 110 MG PO (11:18)
--- NOTE | 2025-01-26 12:23 | PC.NURSE ---
Pt showering at this time
[2025-01-26 13:39] VITALS: BP 144/97; PULSE 65; RESP 18; TEMP 36.4; O2SAT 97
[2025-01-26 13:40] VITALS: BMI 35.2
--- NOTE | 2025-01-26 16:23 | PC.ADMIT ---
Pt arrived at 1312, referred from [facility] pod. Pt self presented with SI and HI. Pt was planning to walk in front of a truck . Pt reports he recently left his of 20 years. The two share 4 children together (ages 24-17). He reports he has been homeless and has thought of ways he would hurt her, which further intensified his SI as this is not him . He reported he would never do anything to hurt her, because of his children, and at this point the HI has resolved. No AVH. He reports never having been in a psych hospital. Was in detox about one year ago and had 6 months sobriety before he relapsed. Tox screen positive for cocaine, opitates, fentanyl, and methdone. Which has been verified. Pt reports a trauma history, though does not discuss. He has no current medical issues. 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 He states he lost that job d/t substance use. Pt is primarily Djiboutian-speaking. He reports he can not read in Djiboutian. He was cooperative with the admission process, he signed a CV with CAW. He does not smoke nicotine. Declined flu shot.
[2025-01-26 20:00] VITALS: BP 158/88; PULSE 67; RESP 18; TEMP 36.4; O2SAT 96
[2025-01-27] MEDS: methADONE HCl 20 MG/2 ML ORAL.CONC 110 MG PO (07:50)
[2025-01-27 08:00] VITALS: BP 150/89; PULSE 85; RESP 18; TEMP 36.5; O2SAT 97
--- NOTE | 2025-01-27 08:16 | HO.PM.IMCN ---
History of Present Illness Data of Consult Service Date: 01/27/25 Primary Care Provider: Peace Harvey MD [facility] Reason for consult: Medical consult 44-year-old male with a past medical history of polysubstance abuse and depression presented to the ED with suicidal ideation with plans to jump in front of a truck. His initial workup revealed no leukocytosis, mild anemia. No electrolyte imbalances, no evidence of kidney or liver injury. Urine without evidence of infection, drug screen positive for opiates and methadone and fentanyl and cocaine. On exam he has no medical concerns. Review of Systems Review of Systems: Denies any shortness of breath, chest pain, headaches, dysuria, abdominal pain or discomfort, nausea, vomiting or diarrhea. Denies fever or chills. PMFSH Social History Household Members: Family Housing: Apartment Housing Other:: pt reports being homeless after leaving Do you presently have visiting nurse or other home services: No Patient Tobacco Use Status: Never used Tobacco Smoked in Last 30 Days: No Use of substances other than those prescribed or required for medical reasons: Yes Substance Use Type: Crack/Cocaine and Heroin Substance Use Frequency: Daily Last Used Substance: Hours (ago) Currently Displaying Signs/Symptoms of Drug Intoxication Withdrawal: No Have you been hit, kicked, punched, or otherwise hurt by someone within the past year? If so, by whom?: No Do you feel safe in your current relationship?: No Current Relationship Is there a partner from a previous relationship who is making you feel unsafe now?: No Are you made to feel afraid or neglected: No Spiritual Healthcare Practices: n/a Bahai Healthcare Practices: n/a Cultural Healthcare Practices: n/a Advance Directives: No Advance Directives Information Provided: No Do you have thoughts of harming others: Vague Do you have a plan to hurt others: No Plan Recently lost weight without trying: No How much weight loss: Not applicable Eating poorly because of decreased appetite: No Nutrition screen score: 0 Nutrition Risks: No Nutritional Risk Poor oral hygiene: No Meds Allergies Allergy/AdvReac Type Severity Reaction Status Date / Time Penicillins (PENICILLINS) Allergy Unknown UNKNOWN Verified 01/25/25 19:26 Active Medications: Current Medications Acetaminophen (Acetaminophen 325 Mg Tablet) 650 mg PO Q6H PRN PRN Reason: Headache/Pain, Scale 1-10 Last Admin: 01/26/25 21:46 Dose: 650 mg Al Hydroxide/Mg Hydroxide (Magnesium Hydrox/Alum Hydrox 30 Ml Oral.Susp) 30 ml PO Q6H PRN PRN Reason: Heartburn/Nausea Hydroxyzine HCl (Hydroxyzine Hcl 25 Mg Tablet) 25 mg PO Q6H PRN PRN Reason: mild anxiety Last Admin: 01/27/25 02:36 Dose: 25 mg Magnesium Hydroxide (Milk Of Magnesia 30 Ml Oral.Susp) 30 ml PO DAILY PRN PRN Reason: Constipation Methadone HCl (Methadone Hcl 20 Mg/2 Ml Oral.Conc) 110 mg PO DAILY CUCA Last Admin: 01/27/25 07:50 Dose: 110 mg Nicotine (Nicotine 21 Mg Patch.Td24) 21 mg TRANSDERMA DAILY PRN PRN Reason: smoking cessation Nicotine Polacrilex (Nicotine Polacrilex 2 Mg Gum) 4 mg BUCCAL Q2H PRN PRN Reason: Nicotine Cravings Olanzapine (Olanzapine 5 Mg Tablet) 5 mg PO TID PRN PRN Reason: agitation Trazodone HCl (Trazodone Hcl 50 Mg Tablet) 50 mg PO BEDTIME MRX1 PRN PRN Reason: Insomnia Last Admin: 01/27/25 04:09 Dose: 50 mg Home Medications ?Medication ?Instructions ?Recorded ?Confirmed ?Last Taken ?Type methadone 10 mg/mL oral 110 mg PO DAILY 01/26/25 01/26/25 01/24/25 06:02 History concentrate (Methadone Intensol) Physical Exam Vital Signs and Narrative: Vital Signs: Last Vital Signs Temp 97.5 F 01/26/25 20:00 Pulse 67 01/26/25 20:00 Resp 18 01/26/25 20:00 BP 158/88 H 01/26/25 20:00 Pulse Ox 96 01/26/25 20:00 O2 Del Method Room Air 01/26/25 20:00 BMI result Body Mass Index 35.2 Alert and oriented X3, calm and cooperative. Answers questions. Neuro: CN II-X11 intact, no deficits, visual acuity intact EYES: PERRLA, EOM intact ENT: Hearing intact, MMM Cardiac: S1 S2 RRR, No ectopy Pulmonary: lungs clear to auscultation, No increased WOB. Abdominal: BS active in all 4 quadrants, no guarding or tenderness MSK: Strength 5/5 upper and lower extremities : Deferred Extremities: No edema in lower extremities Psych: Mood stable, Quiet and cooperative. Skin: Warm and dry, Intact Results Labs 01/25/25 18:16 01/25/25 18:16 Assessment and Plan (1) Polysubstance use disorder: Status: Acute Plan 44-year-old male with past medical history as listed below admitted to inpatient psych for further care and treatment. Polysubstance abuse/depression/suicidal ideation Treatment plan per psychiatric team Methadone maintenance patient Thank you for allowing me to participate in the care of this patient. Will follow with you, please notify medical provider with any changes in condition or concerns.
--- NOTE | 2025-01-27 09:18 | HO.PSYADMNOT ---
HPI Date of Service: 01/27/25 Chief Complaint: SI Sources of Information: patient interviewed, chart reviewed and crisis/core team assessment reviewed HPI Subjective Notes: Chavez Warning and Conditional Voluntary Narrative: 44-year-old Croatian-speaking male with history of substance use disorder presents to [facility] ED, via ambulance, yesterday for suicide and homicidal ideation with intends to walk in front of a truck. On interview with the provider and patient's licensed master social worker, patient states that the day he presented to the ED, he had suicide thoughts with plan to walk in front of a truck and thoughts of killing his partner of 20 years (mother of his 4 children), after she finally confirmed she had an affair with another man. Patient states that 6 months ago, he suspected his partner of having an affair with another man, but she has been denying.He also states that the relationship with his partner was fragile prior to the infidelity because his partner does not approve his drug use. He notes sometimes she would leave the house and returned the following day. They were never . However, the patient ended the relationship because of the suspected infidelity. He continues to live with his partner and their 3 children. They have a son who is older and lives out of state. Since the suspected infidelity of his partner, the has been experiencing intermittent suicide ideation, homicidal ideation, and feeling of hopelessness, worthlessness, anhedonia, and anger since the suspicion. He thought about leaving turning on the stove and gas in the house so that the entire house will burn with himself, his partner, and children inside. However, he continues to challenge those thoughts. He states that he would not burn his children to . He recalls feeling of hopelessness, helplessness, worthlessness, and anhedonia which started 8 months ago. He mentions that his mother 25 years ago but he did not cry because he was in good terms with his mother. However, following her , he did not care for life. Eventually, he met his partner and eventually had 4 children with her - that brought meaning to his life. He is not experiencing suicide or homicidal thoughts at this time. He states that he feels ?tranquil during this hospitalization. He called and spoke with the mother of his children this morning and apologized. He told her that he does not plan to return home even though he does not have a place to stay after his discharge. 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 He has had period of sobriety with the longest being 15 years while on Suboxone. He has been using 2-3 bundles of heroin daily for the past 6 months. Prior to that, he was sober for less than a month. He also reports occasional use of cocaine intranasally with last use a week ago. He smoked 2 puffs of cannabis for the first time, 4 days ago. He has been to multiple detox programs with last detox 1-2 years ago. He denies other illicit drug use. He is on prescribed methadone 110 mg daily. U tox positive for cocaine, opitates, fentanyl, and methdone. He drinks alcohol occasionally on holidays, but he drank 6-8 beers 6 days ago. He has been unemployed for over 5 years due to substance use disorder and he lied racing. He has no source of income. He has a current case for possessing and distributing drugs with a hearing scheduled on 02/15/2025. His goal for his hospitalization is to manages anger and depression. Patient is Croatian-speaking only. In-person interpreter translator utilized. Patient seen at 10:30 on 01/27/2025 Past Psychiatric History: Denies formal diagnosis of mental illness Denies OP psychiatrist or therapist Reports PCP at [facility] - last office visit was 8-10 months ago Denies h/o IPLOC Reports h/o multiple detox -last detox was 1-2 years ago Denies h/o SA or SIB Medical Evaluation Reviewed: Yes PMFSH Family History: Unknown Social History: Separate from his partner of 10 years Has 4 children (1 son, and 3 daughters (1 twin) Current case for drug possession and distribution with a court date on 02/15/25 Unemployed for over 5 years d/t [employer]. No source of income Substance History: h/o intranasal heroin use for over 25 years with intermittent sobriety -has been using 2-3 bundles daily for the past 6 months following less than 1 month sobriety. h/o occasional intranasal cocaine use -last use was a week ago Smoked 2 puffs of cannabis 4 days ago for the 1st time Drinks alcohol occasionally/on holidays - he drank 6-8 beers 6 days ago Trauma History: Denies Diagnostics Vital Signs (24Hr): Vital Signs - 24 hr 01/26/25 09:22 01/26/25 13:39 01/26/25 20:00 Temperature 97.8 F 97.6 F 97.5 F Pulse Rate 67 65 67 Respiratory Rate 16 18 18 Blood Pressure 138/87 144/97 H 158/88 H Pulse Oximetry 96 97 96 Oxygen Delivery Method Room Air Room Air Room Air BMI result Body Mass Index 35.2 Labs 01/25/25 18:16 01/25/25 18:16 Labs: Laboratory Results - last 48 hr 01/25/25 01/25/25 17:26 18:16 WBC 8.7 RBC 4.26 L Hgb 13.2 L Hct 40.4 L MCV 94.8 MCH 31.0 MCHC 32.7 RDW 11.7 Plt Count 263 MPV 9.7 Immature Gran % (Auto) 0.7 H Neut % (Auto) 39.6 L Lymph % (Auto) 52.5 H [place] % (Auto) 5.0 Eos % (Auto) 1.7 Baso % (Auto) 0.5 Lymph # (Auto) 4.6 [place] # (Auto) 0.4 Eos # (Auto) 0.2 Baso # (Auto) 0.0 Abs Immat Gran (auto) 0.06 H Absolute Neuts (auto) 3.5 Absolute Nucleated RBC 0.000 Nucleated RBC % (auto) 0.0 Sodium 140 Potassium 3.8 Chloride 106 Carbon Dioxide 28 Anion Gap 10 L BUN 11 Creatinine 0.72 Estim Creat Clear Calc 135.2 Estimated GFR > 60 Random Glucose 85 Calcium 8.9 D Total Bilirubin 0.2 AST 34 ALT 13 Alkaline Phosphatase 77 Total Protein 6.7 Albumin 4.4 Urine Color Yellow Urine Appearance Clear Urine pH 6.0 Ur Specific [place] 1.020 Urine Protein Negative Urine Glucose (UA) Negative Urine Ketones Negative Urine Blood Negative Urine Nitrite Negative Ur Leukocyte Esterase Negative Urine Opiates Screen POSITIVE H Ur Buprenorphine Scrn Not Detected Ur Oxycodone Screen Not Detected Urine Methadone Screen Positive H Urine Fentanyl Screen POSITIVE H Ur Barbiturates Screen Not Detected Ur Phencyclidine Scrn Not Detected Ur Amphetamines Screen Not Detected U Benzodiazepines Scrn Not Detected Urine Cocaine Screen POSITIVE H U Marijuana (THC) Screen Not Detected Ethyl Alcohol < 10 Meds/Allergies Meds Home Medications ?Medication ?Instructions ?Recorded ?Confirmed ?Type methadone 10 mg/mL oral 110 mg PO DAILY 01/26/25 01/26/25 History concentrate (Methadone Intensol) Allergies Allergies Allergy/AdvReac Type Severity Reaction Status Date / Time Penicillins (PENICILLINS) Allergy Unknown UNKNOWN Verified 01/25/25 19:26 Mental Status Exam Mental Status Exam Narrative: Appearance: Casually dressed, adequate hygiene Behavior: Calm and cooperative throughout the interview. Eye contact is appropriate, and there are no signs of psychomotor agitation or retardation Speech: Normal volume and prosody Thought process: Logical and goal-directed Thought content: Future oriented no self-harming thoughts Mood: Depressed Affect: Blunted SI:denies HI:denies VH/AH:none Delusions: None Insight/judgment: Impaired insight and judgment Memory/cog: Alert, oriented x 4. grossly intact to conversational testing Assessment & Plan Assessment & Plan (1) Depression: Status: Acute Code(s): F32.A - Depression, unspecified (2) Substance use disorder: Status: Acute Code(s): F19.90 - Other psychoactive substance use, unspecified, uncomplicated (3) Suicidal ideation: Status: Acute Code(s): R45.851 - Suicidal ideations Plan 44-year-old Croatian-speaking male with history of substance use disorder presents to [facility] ED, via ambulance, yesterday for suicide and homicidal ideation with intends to walk in front of a truck. On interview with the provider and patient's licensed master social worker, patient states that the day he presented to the ED, he had suicide thoughts with plan to walk in front of a truck and thoughts of killing his partner of 20 years (mother of his 4 children), after she finally confirmed she had an affair with another man. Patient states that 6 months ago, he suspected his partner of having an affair with another man, but she has been denying.He also states that the relationship with his partner was fragile prior to the infidelity because his partner does not approve his drug use. He notes sometimes she would leave the house and returned the following day. They were never . However, the patient ended the relationship because of the suspected infidelity. He continues to live with his partner and their 3 children. They have a son who is older and lives out of state. Since the suspected infidelity of his partner, the has been experiencing intermittent suicide ideation, homicidal ideation, and feeling of hopelessness, worthlessness, anhedonia, and anger since the suspicion. He thought about leaving turning on the stove and gas in the house so that the entire house will burn with himself, his partner, and children inside. However, he continues to challenge those thoughts. He states that he would not burn his children to . He recalls feeling of hopelessness, helplessness, worthlessness, and anhedonia which started 8 months ago. He mentions that his mother 25 years ago but he did not cry because he was in good terms with his mother. However, following her , he did not care for life. Eventually, he met his partner and eventually had 4 children with her - that brought meaning to his life. He is not experiencing suicide or homicidal thoughts at this time. He states that he feels ?tranquil during this hospitalization. He called and spoke with the mother of his children this morning and apologized. He told her that he does not plan to return home even though he does not have a place to stay after his discharge. 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 He has had period of sobriety with the longest being 15 years while on Suboxone. He has been using 2-3 bundles of heroin daily for the past 6 months. Prior to that, he was sober for less than a month. He also reports occasional use of cocaine intranasally with last use a week ago. He smoked 2 puffs of cannabis for the first time, 4 days ago. He has been to multiple detox programs with last detox 1-2 years ago. He denies other illicit drug use. He is on prescribed methadone 110 mg daily. U tox positive for cocaine, opitates, fentanyl, and methdone. He drinks alcohol occasionally on holidays, but he drank 6-8 beers 6 days ago. He has been unemployed for over 5 years due to substance use disorder and he lied racing. He has no source of income. He has a current case for possessing and distributing drugs with a hearing scheduled on 02/15/2025. His goal for his hospitalization is to manages anger and depression. Patient is Croatian-speaking only. In-person interpreter translator utilized. Formulation/Clinical reasoning: Depression: Patient may have been experiencing undiagnosed and untreated depression longer than the 8 months he stated due to multiple psychosocial stressors, including the of his mother 25 years ago which he did not mourn. Chronic heroin and cocaine use may have worsened his depression. His partner having an affair with another man may have worsened his symptoms further, leading to suicide and homicidal thoughts. His goal for this hospitalization is management of his anger and depression. Sertraline 25 mg daily ordered to target depression; advised to take as prescribed. Instructed on the risks, benefits, and potential adverse reactions of the medication. Continue current treatment regimen. Depression management and sobriety will be an ideal goal for long-term symptoms control and recovery. Upon discharge, he wants to be referred to a recovery program that manages dual diagnosis. Plan Admit to . CV 15 minutes check. Diagnostics as needed. Collateral contact. Continue remainder of regime. Encouraged full milieu. Discharge planning. Meds: Start Sertraline 25 mg daily Patient educated on: diagnosis, medication risk/benefits and therapeutic strategies Guardian/Caregiver educated on: therapeutic strategies Reason for continued inpatient stay Substantial Risk for: harm to self and rapid decompensation Statement Statement: I have reviewed the history and physical and performed a pertinent examination on my patient. No changes have occurred unless specified. If the History and Physical was not performed prior to admission, the Hospitalist's service will be consulted for completing the admission physical. Time Spent With Patient Time: Total time managing care of this patient today ____ minutes.
[2025-01-27 20:00] VITALS: BP 133/77; PULSE 72; RESP 18; TEMP 36.6; O2SAT 95
[2025-01-28] MEDS: methADONE HCl 20 MG/2 ML ORAL.CONC 110 MG PO (07:50)
[2025-01-28 08:00] VITALS: BP 134/76; PULSE 69; RESP 18; TEMP 36.6; O2SAT 98
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
[2025-01-28 20:00] VITALS: BP 127/74; PULSE 80; TEMP 36.4; O2SAT 96
[2025-01-29 08:00] VITALS: BP 143/88; PULSE 66; TEMP 36.4; O2SAT 98
[2025-01-29] MEDS: methADONE HCl 20 MG/2 ML ORAL.CONC 110 MG PO (08:26)
--- NOTE | 2025-01-29 09:33 | HO.PSYCHPN ---
Subjective Subjective Date of Service: 01/29/25 Reason For Visit: SI Interim History: met with pt; discussed with team; seen with Juvencio bishop he was having angry feelings wanting to kill his and then himself; says he is trying to get over it and that i'm working on it.. He says at this point, he no longer has any plans or intent to hurt anyone, that now they are just feelings...He said love for his daughters has helped him change. That said, he feels if he left today, he would hurt his ...He says im not normally like this... He agrees to increasing zoloft and zyprexa... -AH started last night (first time ever); they just mumble Mental Status Exam Mental Status Exam Patient Appearance: Appropriate Patient Orientation: Person, Time and Situation Level of Consciousness: Awake and Appropriate Patient Behavior: Appropriate (in behavioral/impulse control; cooperative, forthcoming) Mood Description: Depressed and Angry Affect Description: Constricted Ability to Follow Directions: Fair Speech Pattern: Clear and Spontaneous Speech Hallucinations: Auditory (mumbling voices) Delusions: Not Present Thought Process: Intact and Goal Oriented Thought Content: positive for Suicidal Ideation and positive for Homicidal Ideation Judgement: Poor Diagnostics Vital Signs (24Hr): Vital Signs - 24 hr 01/28/25 20:00 Temperature 97.6 F Pulse Rate 80 Blood Pressure 127/74 Pulse Oximetry 96 Oxygen Delivery Method Room Air BMI result Body Mass Index 35.2 Labs 01/25/25 18:16 01/25/25 18:16 Medications Medications Current Medications Acetaminophen (Acetaminophen 325 Mg Tablet) 650 mg PO Q6H PRN PRN Reason: Headache/Pain, Scale 1-10 Last Admin: 01/29/25 03:57 Dose: 650 mg Al Hydroxide/Mg Hydroxide (Magnesium Hydrox/Alum Hydrox 30 Ml Oral.Susp) 30 ml PO Q6H PRN PRN Reason: Heartburn/Nausea Divalproex Sodium (Divalproex Sodium Er 500 Mg Tab.Er.24h) 500 mg PO BEDTIME [facility] Last Admin: 01/28/25 20:27 Dose: 500 mg Hydroxyzine HCl (Hydroxyzine Hcl 25 Mg Tablet) 25 mg PO Q6H PRN PRN Reason: mild anxiety Last Admin: 01/28/25 22:50 Dose: 25 mg Magnesium Hydroxide (Milk Of Magnesia 30 Ml Oral.Susp) 30 ml PO DAILY PRN PRN Reason: Constipation Methadone HCl (Methadone Hcl 20 Mg/2 Ml Oral.Conc) 110 mg PO DAILY [facility] [place] Last Admin: 01/29/25 08:26 Dose: 110 mg Nicotine (Nicotine 21 Mg Patch.Td24) 21 mg TRANSDERMA DAILY PRN PRN Reason: smoking cessation Nicotine Polacrilex (Nicotine Polacrilex 2 Mg Gum) 4 mg BUCCAL Q2H PRN PRN Reason: Nicotine Cravings Olanzapine (Olanzapine 5 Mg Tablet) 5 mg PO TID PRN PRN Reason: agitation Last Admin: 01/29/25 03:57 Dose: 5 mg Olanzapine (Olanzapine 2.5 Mg Tablet) 2.5 mg PO BID [facility] [place] Last Admin: 01/29/25 08:28 Dose: 2.5 mg Sertraline HCl (Sertraline Hcl 25 Mg Tablet) 25 mg PO DAILY [facility] Last Admin: 01/29/25 08:28 Dose: 25 mg Trazodone HCl (Trazodone Hcl 50 Mg Tablet) 50 mg PO BEDTIME MRX1 PRN PRN Reason: Insomnia Last Admin: 01/28/25 22:50 Dose: 50 mg Allergies Allergies Allergy/AdvReac Type Severity Reaction Status Date / Time Penicillins (PENICILLINS) Allergy Unknown UNKNOWN Verified 01/25/25 19:26 Assessment & Plan Assessment & Plan (1) Depression: Status: Acute Code(s): F32.A - Depression, unspecified (2) Substance use disorder: Status: Acute Code(s): F19.90 - Other psychoactive substance use, unspecified, uncomplicated (3) Suicidal ideation: Status: Acute Code(s): R45.851 - Suicidal ideations (4) Homicidal thoughts: Status: Acute Code(s): R45.850 - Homicidal ideations Plan 44-year-old [place] Islander-speaking male with history of substance use disorder presents to [facility] [place] [facility], via ambulance, yesterday for suicide and homicidal ideation with intends to walk in front of a truck. On interview with the provider and patient's health social work professor, patient states that the day he presented to the ED, he had suicide thoughts with plan to walk in front of a truck and thoughts of killing his partner of 20 years (mother of his 4 children), after she finally confirmed she had an affair with another man. Patient states that 6 months ago, he suspected his partner of having an affair with another man, but she has been denying.He also states that the relationship with his partner was fragile prior to the infidelity because his partner does not approve his drug use. He notes sometimes she would leave the house and returned the following day. They were never . However, the patient ended the relationship because of the suspected infidelity. He continues to live with his partner and their 3 children. They have a son who is older and lives out of state. Since the suspected infidelity of his partner, the has been experiencing intermittent suicide ideation, homicidal ideation, and feeling of hopelessness, worthlessness, anhedonia, and anger since the suspicion. He thought about leaving turning on the stove and gas in the house so that the entire house will burn with himself, his partner, and children inside. However, he continues to challenge those thoughts. He states that he would not burn his children to . He recalls feeling of hopelessness, helplessness, worthlessness, and anhedonia which started 8 months ago. He mentions that his mother 25 years ago but he did not cry because he was in good terms with his mother. However, following her , he did not care for life. Eventually, he met his partner and eventually had 4 children with her - that brought meaning to his life. He is not experiencing suicide or homicidal thoughts at this time. He states that he feels ?tranquil during this hospitalization. He called and spoke with the mother of his children this morning and apologized. He told her that he does not plan to return home even though he does not have a place to stay after his discharge. 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 He has had period of sobriety with the longest being 15 years while on Suboxone. He has been using 2-3 bundles of heroin daily for the past 6 months. Prior to that, he was sober for less than a month. He also reports occasional use of cocaine intranasally with last use a week ago. He smoked 2 puffs of cannabis for the first time, 4 days ago. He has been to multiple detox programs with last detox 1-2 years ago. He denies other illicit drug use. He is on prescribed methadone 110 mg daily. U tox positive for cocaine, opitates, fentanyl, and methdone. He drinks alcohol occasionally on holidays, but he drank 6-8 beers 6 days ago. He has been unemployed for over 5 years due to substance use disorder and he lied racing. He has no source of income. He has a current case for possessing and distributing drugs with a hearing scheduled on 02/15/2025. His goal for his hospitalization is to manages anger and depression. Patient is [place] Islander-speaking only. In-person spanish medical interpreter utilized. Formulation/Clinical reasoning: Depression: Patient may have been experiencing undiagnosed and untreated depression longer than the 8 months he stated due to multiple psychosocial stressors, including the of his mother 25 years ago which he did not mourn. Chronic heroin and cocaine use may have worsened his depression. His partner having an affair with another man may have worsened his symptoms further, leading to suicide and homicidal thoughts. His goal for this hospitalization is management of his anger and depression. Sertraline 25 mg daily ordered to target depression; advised to take as prescribed. Instructed on the risks, benefits, and potential adverse reactions of the medication. Continue current treatment regimen. Depression management and sobriety will be an ideal goal for long-term symptoms control and recovery. Upon discharge, he wants to be referred to a recovery program that manages dual diagnosis. Hospital Course: 01/28/25: Olanzapine 2.5 mg bid for mood mgt Depakote ER 500 mg HS for headache mgt and mood mgt 01/29 acknowledges he was having angry feelings wanting to kill his and then himself; says he is trying to get over it and that i'm working on it.. He says at this point, he no longer has any plans or intent to hurt anyone, that now they are just feelings...He said love for his daughters has helped him change. That said, he feels if he left today, he would hurt his ...He says im not normally like this... He agrees to increasing zoloft and zyprexa... -he would very much like to see his 16 yo --AH started last night (first time ever); they just mumble -talked about struggles with drug addiction Plan Admit to M5. CV 15 minutes check. Increase Zoloft to 50mg Increase Zyprexa to 5mg BID Diagnostics as needed. Collateral contact. Continue remainder of regime. Encouraged full milieu. Discharge planning. Patient educated on: diagnosis, medication risk/benefits and substance abuse Informed Consent: understands Reason for continued inpatient stay Substantial Risk for: harm to self and harm to others Time Spent With Patient Time: Total time managing care of this patient today ____ minutes.
[2025-01-29 11:19] LABS: Alanine Aminotransferase 16 U/L (0-40); Albumin Level 4.4 g/dL (3.5-5.0); Alkaline Phosphatase 79 U/L (39-117); Anion Gap 12 (12-20); Aspartate Amino Transferase 35 U/L (5-37); Blood Urea Nitrogen 9 mg/dL (9-16); Calcium 9.8 mg/dL (8.4-10.2); Carbon Dioxide 29 mmol/L (22-29); Chloride 102 mmol/L (96-108); Cholesterol 155 mg/dL (<200); Creatinine Clr Calc Pharmacy 110.2; Estimated Glomerular Filt Rate > 60; HDL Cholesterol 32 mg/dL (>40); Potassium 4.2 mmol/L (3.3-5.1); Sodium 139 mmol/L (135-145); Total Protein 7.0 g/dL (6.5-8.0); Triglycerides 364 mg/dL (<150)
[2025-01-29 20:10] VITALS: BP 135/83; PULSE 96; RESP 16; TEMP 36.6; O2SAT 95
[2025-01-30] MEDS: methADONE HCl 20 MG/2 ML ORAL.CONC 110 MG PO (07:50)
[2025-01-30 08:00] VITALS: BP 122/71; PULSE 102; TEMP 36.8; O2SAT 97
[2025-01-30] MEDS: Lidocaine 4 % Patch ADH..PATCH 1 PATCH TRANSDERMA (18:39)
[2025-01-30 20:00] VITALS: BP 136/70; PULSE 104; RESP 16; TEMP 36.6; O2SAT 95
--- NOTE | 2025-01-30 21:51 | P.PNPSI_ITS ---
Subjective Subjective Date of Service: 01/30/25 Reason For Visit: SI Interim History: Met with patient; discussed with team Patient reports that he is doing a little better. Says he is working on controlling his anger; says he talked to his today trying to work on things Mental Status Exam Patient Appearance: Appropriate Patient Orientation: Person, Time and Situation Level of Consciousness: Awake and Appropriate Patient Behavior: Appropriate (in behavioral/impulse control; cooperative, forthcoming) Mood Description: Little better Affect Description: Brighter Ability to Follow Directions: Fair Speech Pattern: Clear and Spontaneous Speech Hallucinations: None Delusions: Not Present Thought Process: Intact and Goal Oriented Thought Content: No SI or HI Judgement: Improving Diagnostics Vital Signs (24Hr): Vital Signs - 24 hr 01/30/25 08:00 01/30/25 20:00 Temperature 98.2 F 97.8 F Pulse Rate 102 H 104 H Respiratory Rate 16 Blood Pressure 122/71 136/70 Pulse Oximetry 97 95 Oxygen Delivery Method Room Air Room Air BMI result Body Mass Index 35.2 Labs 01/25/25 18:16 01/29/25 10:01 Labs: Laboratory Results - last 48 hr 01/29/25 10:01 Sodium 139 Potassium 4.2 Chloride 102 Carbon Dioxide 29 Anion Gap 12 BUN 9 Creatinine 0.87 Estim Creat Clear Calc 110.2 Estimated GFR > 60 Random Glucose 198 H Estimat Average Glucose 114 Hemoglobin A1c % 5.6 Calcium 9.8 D Total Bilirubin 0.4 AST 35 ALT 16 Alkaline Phosphatase 79 Total Protein 7.0 Albumin 4.4 Triglycerides 364 H Cholesterol 155 LDL Cholesterol, Calc 51 HDL Cholesterol 32 L TSH 1.07 Medications Medications Current Medications Acetaminophen (Acetaminophen 325 Mg Tablet) 650 mg PO Q6H PRN PRN Reason: Headache/Pain, Scale 1-10 Last Admin: 01/30/25 08:57 Dose: 650 mg Al Hydroxide/Mg Hydroxide (Magnesium Hydrox/Alum Hydrox 30 Ml Oral.Susp) 30 ml PO Q6H PRN PRN Reason: Heartburn/Nausea Clonidine HCl (Clonidine Hcl 0.1 Mg Tablet) 0.1 mg PO Q4H PRN; Protocol PRN Reason: moderate anxiety Divalproex Sodium (Divalproex Sodium Er 500 Mg Tab.Er.24h) 500 mg PO BEDTIME [facility] Last Admin: 01/30/25 20:27 Dose: 500 mg Hydroxyzine HCl (Hydroxyzine Hcl 25 Mg Tablet) 25 mg PO Q6H PRN PRN Reason: mild anxiety Last Admin: 01/29/25 11:10 Dose: 25 mg Lidocaine (Lidocaine 4 % Patch Adh..Patch) 1 patch TRANSDERMA DAILY PRN; Protocol PRN Reason: lower back pain Last Admin: 01/30/25 18:39 Dose: 1 patch Magnesium Hydroxide (Milk Of Magnesia 30 Ml Oral.Susp) 30 ml PO DAILY PRN PRN Reason: Constipation Methadone HCl (Methadone Hcl 20 Mg/2 Ml Oral.Conc) 110 mg PO DAILY [facility] Last Admin: 01/30/25 07:50 Dose: 110 mg Nicotine (Nicotine 21 Mg Patch.Td24) 21 mg TRANSDERMA DAILY PRN PRN Reason: smoking cessation Nicotine Polacrilex (Nicotine Polacrilex 2 Mg Gum) 4 mg BUCCAL Q2H PRN PRN Reason: Nicotine Cravings Olanzapine (Olanzapine 5 Mg Tablet) 5 mg PO TID PRN PRN Reason: agitation Last Admin: 01/29/25 03:57 Dose: 5 mg Olanzapine (Olanzapine 5 Mg Tablet) 5 mg PO BID [facility] Last Admin: 01/30/25 20:27 Dose: 5 mg Olanzapine (Olanzapine 2.5 Mg Tablet) 2.5 mg PO TID PRN PRN Reason: mild agitation Sertraline HCl (Sertraline Hcl 50 Mg Tablet) 50 mg PO DAILY [facility] Last Admin: 01/30/25 08:44 Dose: 50 mg Trazodone HCl (Trazodone Hcl 50 Mg Tablet) 50 mg PO BEDTIME MRX1 PRN PRN Reason: Insomnia Last Admin: 01/30/25 20:27 Dose: 50 mg Allergies Allergies Allergy/AdvReac Type Severity Reaction Status Date / Time Penicillins (PENICILLINS) Allergy Unknown UNKNOWN Verified 01/25/25 19:26 Assessment & Plan Assessment & Plan (1) Depression: Status: Acute Code(s): F32.A - Depression, unspecified (2) Substance use disorder: Status: Acute Code(s): F19.90 - Other psychoactive substance use, unspecified, uncomplicated (3) Suicidal ideation: Status: Acute Code(s): R45.851 - Suicidal ideations (4) Homicidal thoughts: Status: Acute Code(s): R45.850 - Homicidal ideations Plan 44-year-old Greek-speaking male with history of substance use disorder presents to [facility], via ambulance, yesterday for suicide and homicidal ideation with intends to walk in front of a truck. On interview with the provider and patient's licensed clinical social worker, patient states that the day he presented to the ED, he had suicide thoughts with plan to walk in front of a truck and thoughts of killing his partner of 20 years (mother of his 4 children), after she finally confirmed she had an affair with another man. Patient states that 6 months ago, he suspected his partner of having an affair with another man, but she has been denying.He also states that the relationship with his partner was fragile prior to the infidelity because his partner does not approve his drug use. He notes sometimes she would leave the house and returned the following day. They were never . However, the patient ended the relationship because of the suspected infidelity. He continues to live with his partner and their 3 children. They have a son who is older and lives out of state. Since the suspected infidelity of his partner, the has been experiencing intermittent suicide ideation, homicidal ideation, and feeling of hopelessness, worthlessness, anhedonia, and anger since the suspicion. He thought about leaving turning on the stove and gas in the house so that the entire house will burn with himself, his partner, and children inside. However, he continues to challenge those thoughts. He states that he would not burn his children to . He recalls feeling of hopelessness, helplessness, worthlessness, and anhedonia which started 8 months ago. He mentions that his mother 25 years ago but he did not cry because he was in good terms with his mother. However, following her , he did not care for life. Eventually, he met his partner and eventually had 4 children with her - that brought meaning to his life. He is not experiencing suicide or homicidal thoughts at this time. He states that he feels ?tranquil during this hospitalization. He called and spoke with the mother of his children this morning and apologized. He told her that he does not plan to return home even though he does not have a place to stay after his discharge. 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 He has had period of sobriety with the longest being 15 years while on Suboxone. He has been using 2-3 bundles of heroin daily for the past 6 months. Prior to that, he was sober for less than a month. He also reports occasional use of cocaine intranasally with last use a week ago. He smoked 2 puffs of cannabis for the first time, 4 days ago. He has been to multiple detox programs with last detox 1-2 years ago. He denies other illicit drug use. He is on prescribed methadone 110 mg daily. U tox positive for cocaine, opitates, fentanyl, and methdone. He drinks alcohol occasionally on holidays, but he drank 6-8 beers 6 days ago. He has been unemployed for over 5 years due to substance use disorder and he lied racing. He has no source of income. He has a current case for possessing and distributing drugs with a hearing scheduled on 02/15/2025. His goal for his hospitalization is to manages anger and depression. Patient is Greek-speaking only. In-person heavy duty truck mechanic utilized. Formulation/Clinical reasoning: Depression: Patient may have been experiencing undiagnosed and untreated depression longer than the 8 months he stated due to multiple psychosocial stressors, including the of his mother 25 years ago which he did not mourn. Chronic heroin and cocaine use may have worsened his depression. His partner having an affair with another man may have worsened his symptoms further, leading to suicide and homicidal thoughts. His goal for this hospitalization is management of his anger and depression. Sertraline 25 mg daily ordered to target depression; advised to take as prescribed. Instructed on the risks, benefits, and potential adverse reactions of the medication. Continue current treatment regimen. Depression management and sobriety will be an ideal goal for long-term symptoms control and recovery. Upon discharge, he wants to be referred to a recovery program that manages dual diagnosis. Hospital Course: 01/28/25: Olanzapine 2.5 mg bid for mood mgt Depakote ER 500 mg HS for headache mgt and mood mgt 01/29 acknowledges he was having angry feelings wanting to kill his and then himself; says he is trying to get over it and that i'm working on it.. He says at this point, he no longer has any plans or intent to hurt anyone, that now they are just feelings...He said love for his daughters has helped him change. That said, he feels if he left today, he would hurt his ...He says im not normally like this... He agrees to increasing zoloft and zyprexa... -he would very much like to see his 16 yo --AH started last night (first time ever); they just mumble -talked about struggles with drug addiction 01/30 patient reports he is doing little better. No SI or HI any longer; talked to his in trying to work things out; trying to keep his anger and check Plan Admit to M5. CV 15 minutes check. Increase Zoloft to 50mg Increase Zyprexa to 5mg BID Diagnostics as needed. Collateral contact. Continue remainder of regime. Encouraged full milieu. Discharge planning. Patient educated on: diagnosis, medication risk/benefits and therapeutic strategies Informed Consent: understands Reason for continued inpatient stay Substantial Risk for: rapid decompensation Time Spent With Patient Time: Total time managing care of this patient today ____ minutes.
[2025-01-31] MEDS: methADONE HCl 20 MG/2 ML ORAL.CONC 110 MG PO (07:44)
[2025-01-31 08:00] VITALS: BP 143/77; PULSE 95; RESP 18; TEMP 36.5; O2SAT 100
[2025-01-31] MEDS: Milk of Magnesia 30 ML ORAL.SUSP PO (08:43)
--- NOTE | 2025-01-31 09:49 | P.PNPSI_ITS ---
Subjective Subjective Date of Service: 01/31/25 Reason For Visit: SI Subjective Notes: Conditional Voluntary Healthcare Proxy: No Guardianship: No Medical Problems Affecting Mental Status: No Interim History: Pt planning a visit with his children on 02/01. Both children will visit. Reports feeling some improvement, however some sedation is evident. Using television, music to help with coping. Reports back pain, congestion, sleep is stabilizing. SI/HI- I am working on it. Medication Compliance: Yes Side effects from medications: No Attending Groups: No Review of Systems Acute medical concerns: No Medical Review of Systems: unchanged Review of Systems Review of Systems back pain, congestion Mental Status Exam Mental Status Exam Patient Appearance: Fatigued Patient Orientation: Person, Place, Time and Situation Level of Consciousness: Alert Patient Behavior: Talkative and Good Eye Contact Mood Description: Withdrawn Affect Description: Constricted Patient Cognition Impaired: No Ability to Follow Directions: Good Speech Pattern: Spontaneous Speech Memory Description: Intact Hallucinations: None Delusions: Not Present Perceptual Disturbances: Derealization Thought Process: Distracted and Rumination Thought Content: positive for Circumstantial, positive for Perseveration, positive for Suicidal Ideation and positive for Homicidal Ideation Depressive Symptoms: Thoughts of /Suicide Judgement: Good Diagnostics Vital Signs (24Hr): Vital Signs - 24 hr 01/30/25 20:00 01/31/25 08:00 Temperature 97.8 F 97.7 F Pulse Rate 104 H 95 Respiratory Rate 16 18 Blood Pressure 136/70 143/77 H Pulse Oximetry 95 100 Oxygen Delivery Method Room Air Room Air BMI result Body Mass Index 35.2 Labs 01/25/25 18:16 01/29/25 10:01 Labs: Laboratory Results - last 48 hr 01/29/25 10:01 Sodium 139 Potassium 4.2 Chloride 102 Carbon Dioxide 29 Anion Gap 12 BUN 9 Creatinine 0.87 Estim Creat Clear Calc 110.2 Estimated GFR > 60 Random Glucose 198 H Estimat Average Glucose 114 Hemoglobin A1c % 5.6 Calcium 9.8 D Total Bilirubin 0.4 AST 35 ALT 16 Alkaline Phosphatase 79 Total Protein 7.0 Albumin 4.4 Triglycerides 364 H Cholesterol 155 LDL Cholesterol, Calc 51 HDL Cholesterol 32 L TSH 1.07 Medications Medications Current Medications Acetaminophen (Acetaminophen 325 Mg Tablet) 650 mg PO Q6H PRN PRN Reason: Headache/Pain, Scale 1-10 Last Admin: 01/30/25 22:08 Dose: 650 mg Al Hydroxide/Mg Hydroxide (Magnesium Hydrox/Alum Hydrox 30 Ml Oral.Susp) 30 ml PO Q6H PRN PRN Reason: Heartburn/Nausea Clonidine HCl (Clonidine Hcl 0.1 Mg Tablet) 0.1 mg PO Q4H PRN; Protocol PRN Reason: moderate anxiety Divalproex Sodium (Divalproex Sodium Er 500 Mg Tab.Er.24h) 500 mg PO BEDTIME [facility] Last Admin: 01/30/25 20:27 Dose: 500 mg Hydroxyzine HCl (Hydroxyzine Hcl 25 Mg Tablet) 25 mg PO Q6H PRN PRN Reason: mild anxiety Last Admin: 01/29/25 11:10 Dose: 25 mg Lidocaine (Lidocaine 4 % Patch Adh..Patch) 1 patch TRANSDERMA DAILY PRN; Protocol PRN Reason: lower back pain Last Admin: 01/30/25 18:39 Dose: 1 patch Magnesium Hydroxide (Milk Of Magnesia 30 Ml Oral.Susp) 30 ml PO DAILY PRN PRN Reason: Constipation Last Admin: 01/31/25 08:43 Dose: 30 ml Methadone HCl (Methadone Hcl 20 Mg/2 Ml Oral.Conc) 110 mg PO DAILY [facility] Last Admin: 01/31/25 07:44 Dose: 110 mg Nicotine (Nicotine 21 Mg Patch.Td24) 21 mg TRANSDERMA DAILY PRN PRN Reason: smoking cessation Nicotine Polacrilex (Nicotine Polacrilex 2 Mg Gum) 4 mg BUCCAL Q2H PRN PRN Reason: Nicotine Cravings Olanzapine (Olanzapine 5 Mg Tablet) 5 mg PO TID PRN PRN Reason: agitation Last Admin: 01/29/25 03:57 Dose: 5 mg Olanzapine (Olanzapine 5 Mg Tablet) 5 mg PO BID [facility] Last Admin: 01/31/25 08:21 Dose: 5 mg Olanzapine (Olanzapine 2.5 Mg Tablet) 2.5 mg PO TID PRN PRN Reason: mild agitation Sertraline HCl (Sertraline Hcl 50 Mg Tablet) 50 mg PO DAILY [facility] Last Admin: 01/31/25 08:21 Dose: 50 mg Trazodone HCl (Trazodone Hcl 50 Mg Tablet) 50 mg PO BEDTIME MRX1 PRN PRN Reason: Insomnia Last Admin: 01/31/25 01:39 Dose: 50 mg Allergies Allergies Allergy/AdvReac Type Severity Reaction Status Date / Time Penicillins (PENICILLINS) Allergy Unknown UNKNOWN Verified 01/25/25 19:26 Assessment & Plan Assessment & Plan (1) Depression: Status: Acute Code(s): F32.A - Depression, unspecified (2) Substance use disorder: Status: Acute Code(s): F19.90 - Other psychoactive substance use, unspecified, uncomplicated (3) Suicidal ideation: Status: Acute Code(s): R45.851 - Suicidal ideations (4) Homicidal thoughts: Status: Acute Code(s): R45.850 - Homicidal ideations Plan 44-year-old Greenlandic-speaking male with history of substance use disorder presents to [facility], via ambulance, yesterday for suicide and homicidal ideation with intends to walk in front of a truck. On interview with the provider and patient's director of social media marketing, patient states that the day he presented to the ED, he had suicide thoughts with plan to walk in front of a truck and thoughts of killing his partner of 20 years (mother of his 4 children), after she finally confirmed she had an affair with another man. Patient states that 6 months ago, he suspected his partner of having an affair with another man, but she has been denying.He also states that the relationship with his partner was fragile prior to the infidelity because his partner does not approve his drug use. He notes sometimes she would leave the house and returned the following day. They were never . However, the patient ended the relationship because of the suspected infidelity. He continues to live with his partner and their 3 children. They have a son who is older and lives out of state. Since the suspected infidelity of his partner, the has been experiencing intermittent suicide ideation, homicidal ideation, and feeling of hopelessness, worthlessness, anhedonia, and anger since the suspicion. He thought about leaving turning on the stove and gas in the house so that the entire house will burn with himself, his partner, and children inside. However, he continues to challenge those thoughts. He states that he would not burn his children to . He recalls feeling of hopelessness, helplessness, worthlessness, and anhedonia which started 8 months ago. He mentions that his mother 25 years ago but he did not cry because he was in good terms with his mother. However, following her , he did not care for life. Eventually, he met his partner and eventually had 4 children with her - that brought meaning to his life. He is not experiencing suicide or homicidal thoughts at this time. He states that he feels ?tranquil during this hospitalization. He called and spoke with the mother of his children this morning and apologized. He told her that he does not plan to return home even though he does not have a place to stay after his discharge. 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 He has had period of sobriety with the longest being 15 years while on Suboxone. He has been using 2-3 bundles of heroin daily for the past 6 months. Prior to that, he was sober for less than a month. He also reports occasional use of cocaine intranasally with last use a week ago. He smoked 2 puffs of cannabis for the first time, 4 days ago. He has been to multiple detox programs with last detox 1-2 years ago. He denies other illicit drug use. He is on prescribed methadone 110 mg daily. U tox positive for cocaine, opitates, fentanyl, and methdone. He drinks alcohol occasionally on holidays, but he drank 6-8 beers 6 days ago. He has been unemployed for over 5 years due to substance use disorder and he lied racing. He has no source of income. He has a current case for possessing and distributing drugs with a hearing scheduled on 02/15/2025. His goal for his hospitalization is to manages anger and depression. Patient is Greenlandic-speaking only. In-person conference interpreter utilized. Formulation/Clinical reasoning: Depression: Patient may have been experiencing undiagnosed and untreated depression longer than the 8 months he stated due to multiple psychosocial stressors, including the of his mother 25 years ago which he did not mourn. Chronic heroin and cocaine use may have worsened his depression. His partner having an affair with another man may have worsened his symptoms further, leading to suicide and homicidal thoughts. His goal for this hospitalization is management of his anger and depression. Sertraline 25 mg daily ordered to target depression; advised to take as prescribed. Instructed on the risks, benefits, and potential adverse reactions of the medication. Continue current treatment regimen. Depression management and sobriety will be an ideal goal for long-term symptoms control and recovery. Upon discharge, he wants to be referred to a recovery program that manages dual diagnosis. Hospital Course: 01/28/25: Olanzapine 2.5 mg bid for mood mgt Depakote ER 500 mg HS for headache mgt and mood mgt 01/29 acknowledges he was having angry feelings wanting to kill his and then himself; says he is trying to get over it and that i'm working on it.. He says at this point, he no longer has any plans or intent to hurt anyone, that now they are just feelings...He said love for his daughters has helped him change. That said, he feels if he left today, he would hurt his ...He says im not normally like this... He agrees to increasing zoloft and zyprexa... -he would very much like to see his 16 yo --AH started last night (first time ever); they just mumble -talked about struggles with drug addiction 01/30 patient reports he is doing little better. No SI or HI any longer; talked to his in trying to work things out; trying to keep his anger and check 01/31: Congestion: Pseudoephedrine prn, nasal drops prn Continue remainder of regime Plan Admit to M5. CV 15 minutes check. Increase Zoloft to 50mg Increase Zyprexa to 5mg BID Diagnostics as needed. Collateral contact. Continue remainder of regime. Encouraged full milieu. Discharge planning. Reason for continued inpatient stay Substantial Risk for: harm to self, harm to others and rapid decompensation Time Spent With Patient Time: Total time managing care of this patient today ____ minutes.
[2025-01-31] MEDS: Lidocaine 4 % Patch ADH..PATCH 1 PATCH TRANSDERMA (09:56)
[2025-02-01 02:33] VITALS: BP 121/59
[2025-02-01] MEDS: methADONE HCl 20 MG/2 ML ORAL.CONC 110 MG PO (07:57)
[2025-02-01 08:00] VITALS: BP 135/65; PULSE 114; RESP 16; TEMP 36.3; O2SAT 94
[2025-02-01] MEDS: Lidocaine 4 % Patch ADH..PATCH 1 PATCH TRANSDERMA (08:35)
--- NOTE | 2025-02-01 10:58 | HO.PSYCHPN ---
Subjective Subjective Date of Service: 02/01/25 Reason For Visit: SI Subjective Notes: Conditional Voluntary Healthcare Proxy: No Guardianship: No Medical Problems Affecting Mental Status: No Interim History: Visit with children planned for this afternoon. Reports no SI,HI in hospital. Sleep continues to regulate, however poor last night, only two hours. Upset when told by team during the night there was no water, snacks. Concerned about 02/15 court date-wanting to negotiate probation, however, unsure if this will be possible. Medication Compliance: Yes Side effects from medications: No Attending Groups: Intermittent Review of Systems Acute medical concerns: No Medical Review of Systems: unchanged Review of Systems Review of Systems Denies- sleep is poor Mental Status Exam Mental Status Exam Patient Appearance: Fatigued Patient Orientation: Person, Place, Time and Situation Level of Consciousness: Alert Patient Behavior: Talkative and Good Eye Contact Mood Description: Withdrawn Affect Description: Constricted Patient Cognition Impaired: No Ability to Follow Directions: Good Speech Pattern: Spontaneous Speech Memory Description: Intact Hallucinations: None Delusions: Not Present Perceptual Disturbances: Derealization Thought Process: Distracted and Rumination Thought Content: positive for Circumstantial, positive for Perseveration, positive for Suicidal Ideation and positive for Homicidal Ideation Depressive Symptoms: Thoughts of /Suicide Judgement: Good Diagnostics Vital Signs (24Hr): Vital Signs - 24 hr 02/01/25 02:33 02/01/25 08:00 Temperature 97.4 F Pulse Rate 114 H Respiratory Rate 16 Blood Pressure 121/59 L 135/65 Pulse Oximetry 94 Oxygen Delivery Method Room Air BMI result Body Mass Index 35.2 Labs 01/25/25 18:16 01/29/25 10:01 Medications Medications Current Medications Acetaminophen (Acetaminophen 325 Mg Tablet) 650 mg PO Q6H PRN PRN Reason: Headache/Pain, Scale 1-10 Last Admin: 02/01/25 02:32 Dose: 650 mg Al Hydroxide/Mg Hydroxide (Magnesium Hydrox/Alum Hydrox 30 Ml Oral.Susp) 30 ml PO Q6H PRN PRN Reason: Heartburn/Nausea Clonidine HCl (Clonidine Hcl 0.1 Mg Tablet) 0.1 mg PO Q4H PRN; Protocol PRN Reason: moderate anxiety Last Admin: 02/01/25 02:33 Dose: 0.1 mg Divalproex Sodium (Divalproex Sodium Er 500 Mg Tab.Er.24h) 500 mg PO BEDTIME CUCA Last Admin: 01/31/25 21:40 Dose: 500 mg Hydroxyzine HCl (Hydroxyzine Hcl 25 Mg Tablet) 25 mg PO Q6H PRN PRN Reason: mild anxiety Last Admin: 01/29/25 11:10 Dose: 25 mg Lidocaine (Lidocaine 4 % Patch Adh..Patch) 1 patch TRANSDERMA DAILY PRN; Protocol PRN Reason: lower back pain Last Admin: 02/01/25 08:35 Dose: 1 patch Magnesium Hydroxide (Milk Of Magnesia 30 Ml Oral.Susp) 30 ml PO DAILY PRN PRN Reason: Constipation Last Admin: 01/31/25 08:43 Dose: 30 ml Methadone HCl (Methadone Hcl 20 Mg/2 Ml Oral.Conc) 110 mg PO DAILY [facility] Last Admin: 02/01/25 07:57 Dose: 110 mg Nicotine (Nicotine 21 Mg Patch.Td24) 21 mg TRANSDERMA DAILY PRN PRN Reason: smoking cessation Nicotine Polacrilex (Nicotine Polacrilex 2 Mg Gum) 4 mg BUCCAL Q2H PRN PRN Reason: Nicotine Cravings Olanzapine (Olanzapine 5 Mg Tablet) 5 mg PO TID PRN PRN Reason: agitation Last Admin: 01/29/25 03:57 Dose: 5 mg Olanzapine (Olanzapine 5 Mg Tablet) 5 mg PO BID [facility] Last Admin: 02/01/25 08:16 Dose: 5 mg Olanzapine (Olanzapine 2.5 Mg Tablet) 2.5 mg PO TID PRN PRN Reason: mild agitation Oxymetazoline HCl (Oxymetazoline Hcl 0.05 % Nasal 15 Ml [place]) 2 spray NOSTRIL-B BID PRN PRN Reason: Congestion Stop: 02/03/25 12:06 Pseudoephedrine HCl (Pseudoephedrine Hcl 30 Mg Tablet) 30 mg PO Q6H PRN PRN Reason: Congestion Last Admin: 01/31/25 12:41 Dose: 30 mg Sertraline HCl (Sertraline Hcl 50 Mg Tablet) 50 mg PO DAILY [facility] Last Admin: 02/01/25 08:16 Dose: 50 mg Trazodone HCl (Trazodone Hcl 50 Mg Tablet) 50 mg PO BEDTIME MRX1 PRN PRN Reason: Insomnia Last Admin: 02/01/25 02:35 Dose: 50 mg Allergies Allergies Allergy/AdvReac Type Severity Reaction Status Date / Time Penicillins (PENICILLINS) Allergy Unknown UNKNOWN Verified 10/28/25 19:26 Assessment & Plan Assessment & Plan (1) Depression: Status: Acute Code(s): F32.A - Depression, unspecified (2) Substance use disorder: Status: Acute Code(s): F19.90 - Other psychoactive substance use, unspecified, uncomplicated (3) Suicidal ideation: Status: Acute Code(s): R45.851 - Suicidal ideations (4) Homicidal thoughts: Status: Acute Code(s): R45.850 - Homicidal ideations Plan 44-year-old [place]-speaking male with history of substance use disorder presents to [facility], via ambulance, yesterday for suicide and homicidal ideation with intends to walk in front of a truck. On interview with the provider and patient's health social work professor, patient states that the day he presented to the ED, he had suicide thoughts with plan to walk in front of a truck and thoughts of killing his partner of 20 years (mother of his 4 children), after she finally confirmed she had an affair with another man. Patient states that 6 months ago, he suspected his partner of having an affair with another man, but she has been denying.He also states that the relationship with his partner was fragile prior to the infidelity because his partner does not approve his drug use. He notes sometimes she would leave the house and returned the following day. They were never . However, the patient ended the relationship because of the suspected infidelity. He continues to live with his partner and their 3 children. They have a son who is older and lives out of state. Since the suspected infidelity of his partner, the has been experiencing intermittent suicide ideation, homicidal ideation, and feeling of hopelessness, worthlessness, anhedonia, and anger since the suspicion. He thought about leaving turning on the stove and gas in the house so that the entire house will burn with himself, his partner, and children inside. However, he continues to challenge those thoughts. He states that he would not burn his children to . He recalls feeling of hopelessness, helplessness, worthlessness, and anhedonia which started 8 months ago. He mentions that his mother 25 years ago but he did not cry because he was in good terms with his mother. However, following her , he did not care for life. Eventually, he met his partner and eventually had 4 children with her - that brought meaning to his life. He is not experiencing suicide or homicidal thoughts at this time. He states that he feels ?tranquil during this hospitalization. He called and spoke with the mother of his children this morning and apologized. He told her that he does not plan to return home even though he does not have a place to stay after his discharge. 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 He has had period of sobriety with the longest being 15 years while on Suboxone. He has been using 2-3 bundles of heroin daily for the past 6 months. Prior to that, he was sober for less than a month. He also reports occasional use of cocaine intranasally with last use a week ago. He smoked 2 puffs of cannabis for the first time, 4 days ago. He has been to multiple detox programs with last detox 1-2 years ago. He denies other illicit drug use. He is on prescribed methadone 110 mg daily. U tox positive for cocaine, opitates, fentanyl, and methdone. He drinks alcohol occasionally on holidays, but he drank 6-8 beers 6 days ago. He has been unemployed for over 5 years due to substance use disorder and he lied racing. He has no source of income. He has a current case for possessing and distributing drugs with a hearing scheduled on 02/15/2025. His goal for his hospitalization is to manages anger and depression. Patient is Tam[place]-speaking only. In-person cigar head stringer utilized. Formulation/Clinical reasoning: Depression: Patient may have been experiencing undiagnosed and untreated depression longer than the 8 months he stated due to multiple psychosocial stressors, including the of his mother 25 years ago which he did not mourn. Chronic heroin and cocaine use may have worsened his depression. His partner having an affair with another man may have worsened his symptoms further, leading to suicide and homicidal thoughts. His goal for this hospitalization is management of his anger and depression. Sertraline 25 mg daily ordered to target depression; advised to take as prescribed. Instructed on the risks, benefits, and potential adverse reactions of the medication. Continue current treatment regimen. Depression management and sobriety will be an ideal goal for long-term symptoms control and recovery. Upon discharge, he wants to be referred to a recovery program that manages dual diagnosis. Hospital Course: 01/28/25: Olanzapine 2.5 mg bid for mood mgt Depakote ER 500 mg HS for headache mgt and mood mgt 01/29 acknowledges he was having angry feelings wanting to kill his and then himself; says he is trying to get over it and that i'm working on it.. He says at this point, he no longer has any plans or intent to hurt anyone, that now they are just feelings...He said love for his daughters has helped him change. That said, he feels if he left today, he would hurt his ...He says im not normally like this... He agrees to increasing zoloft and zyprexa... -he would very much like to see his 16 yo --AH started last night (first time ever); they just mumble -talked about struggles with drug addiction 01/30 patient reports he is doing little better. No SI or HI any longer; talked to his in trying to work things out; trying to keep his anger and check 02/01 Increase Olanzapine to 10 mg bid Increase Depakote ER to 750 mg HS Plan Admit to M5. CV 15 minutes check. Increase Zoloft to 50mg Increase Zyprexa to 5mg BID Diagnostics as needed. Collateral contact. Continue remainder of regime. Encouraged full milieu. Discharge planning. Reason for continued inpatient stay Substantial Risk for: rapid decompensation Time Spent With Patient Time: Total time managing care of this patient today ____ minutes.
[2025-02-01] MEDS: Milk of Magnesia 30 ML ORAL.SUSP PO (16:00)
[2025-02-01 20:00] VITALS: BP 141/71; PULSE 85; RESP 16; TEMP 36.5; O2SAT 96
[2025-02-01] MEDS: Divalproex Sodium ER 250 MG TAB.ER.24H 750 MG PO (20:51)
[2025-02-01] MEDS: Magnesium Hydrox/Alum Hydrox 30 ML ORAL.SUSP PO (21:38)
[2025-02-02] MEDS: methADONE HCl 20 MG/2 ML ORAL.CONC 110 MG PO (07:58)
[2025-02-02 08:00] VITALS: BP 162/75; PULSE 99; RESP 18; TEMP 36.3; O2SAT 95
[2025-02-02] MEDS: Nicotine 21 MG PATCH.TD24 TRANSDERMA (08:13)
[2025-02-02] MEDS: Lidocaine 4 % Patch ADH..PATCH 1 PATCH TRANSDERMA (08:15)
--- NOTE | 2025-02-02 09:12 | HO.PSYCHPN ---
Subjective Subjective Date of Service: 02/02/25 Reason For Visit: SI Subjective Notes: Conditional Voluntary Healthcare Proxy: No Guardianship: No Medical Problems Affecting Mental Status: No Interim History: I am working on the SI,HI, and my negative feelings about my . Reports regime to be effective. SI,HI are decreased, Denies ,VH. Depakote is not helpful for headache so we will begin a tapering. Pt discussed feeling filmed on fresh air break last evening which he discussed. Review of meds, will increase Olanzapine at HS which pt is in agreement with. Team continues to apply to programs for pt. Pt continues to present with sedation-probably associated with Methadone dosing. Medication Compliance: Yes Side effects from medications: No Attending Groups: Intermittent Review of Systems Acute medical concerns: No Medical Review of Systems: unchanged Review of Systems Review of Systems Denies-will give Debrox drops for ear wax buildup Mental Status Exam Mental Status Exam Patient Appearance: Fatigued Patient Orientation: Person, Place, Time and Situation Level of Consciousness: Alert Patient Behavior: Talkative and Good Eye Contact Mood Description: Withdrawn Affect Description: Constricted Patient Cognition Impaired: No Ability to Follow Directions: Good Speech Pattern: Spontaneous Speech Memory Description: Intact Hallucinations: None Delusions: Not Present Perceptual Disturbances: Derealization Thought Process: Distracted and Rumination Thought Content: positive for Circumstantial, positive for Perseveration, positive for Suicidal Ideation and positive for Homicidal Ideation Depressive Symptoms: Thoughts of /Suicide Judgement: Good Diagnostics Vital Signs (24Hr): Vital Signs - 24 hr 02/01/25 20:00 02/02/25 08:00 Temperature 97.7 F 97.3 F Pulse Rate 85 99 Respiratory Rate 16 18 Blood Pressure 141/71 H 162/75 H Pulse Oximetry 96 95 Oxygen Delivery Method Room Air Room Air BMI result Body Mass Index 35.2 Labs 01/25/25 18:16 01/29/25 10:01 Medications Medications Current Medications Acetaminophen (Acetaminophen 325 Mg Tablet) 650 mg PO Q6H PRN PRN Reason: Headache/Pain, Scale 1-10 Last Admin: 02/01/25 20:50 Dose: 650 mg Al Hydroxide/Mg Hydroxide (Magnesium Hydrox/Alum Hydrox 30 Ml Oral.Susp) 30 ml PO Q6H PRN PRN Reason: Heartburn/Nausea Last Admin: 02/01/25 21:38 Dose: 30 ml Clonidine HCl (Clonidine Hcl 0.1 Mg Tablet) 0.1 mg PO Q4H PRN; Protocol PRN Reason: moderate anxiety Last Admin: 02/01/25 02:33 Dose: 0.1 mg Divalproex Sodium (Divalproex Sodium Er 250 Mg Tab.Er.24h) 750 mg PO BEDTIME CUCA Last Admin: 02/01/25 20:51 Dose: 750 mg Hydroxyzine HCl (Hydroxyzine Hcl 25 Mg Tablet) 25 mg PO Q6H PRN PRN Reason: mild anxiety Last Admin: 01/29/25 11:10 Dose: 25 mg Ibuprofen (Ibuprofen 600 Mg Tablet) 600 mg PO Q6H PRN PRN Reason: back pain Last Admin: 02/02/25 04:05 Dose: 600 mg Lidocaine (Lidocaine 4 % Patch Adh..Patch) 1 patch TRANSDERMA DAILY PRN; Protocol PRN Reason: lower back pain Last Admin: 02/02/25 08:15 Dose: 1 patch Magnesium Hydroxide (Milk Of Magnesia 30 Ml Oral.Susp) 30 ml PO DAILY PRN PRN Reason: Constipation Last Admin: 02/01/25 16:00 Dose: 30 ml Methadone HCl (Methadone Hcl 20 Mg/2 Ml Oral.Conc) 110 mg PO DAILY [facility] Last Admin: 02/02/25 07:58 Dose: 110 mg Nicotine (Nicotine 21 Mg Patch.Td24) 21 mg TRANSDERMA DAILY PRN PRN Reason: smoking cessation Last Admin: 02/02/25 08:13 Dose: 21 mg Nicotine Polacrilex (Nicotine Polacrilex 2 Mg Gum) 4 mg BUCCAL Q2H PRN PRN Reason: Nicotine Cravings Last Admin: 02/02/25 08:46 Dose: 4 mg Olanzapine (Olanzapine 5 Mg Tablet) 5 mg PO TID PRN PRN Reason: agitation Last Admin: 01/29/25 03:57 Dose: 5 mg Olanzapine (Olanzapine 2.5 Mg Tablet) 2.5 mg PO TID PRN PRN Reason: mild agitation Olanzapine (Olanzapine 10 Mg Tablet) 10 mg PO BID [facility] Last Admin: 02/02/25 08:13 Dose: 10 mg Oxymetazoline HCl (Oxymetazoline Hcl 0.05 % Nasal 15 Ml [place]) 2 spray NOSTRIL-B BID PRN PRN Reason: Congestion Stop: 02/03/25 12:06 Pseudoephedrine HCl (Pseudoephedrine Hcl 30 Mg Tablet) 30 mg PO Q6H PRN PRN Reason: Congestion Last Admin: 02/01/25 19:01 Dose: 30 mg Sertraline HCl (Sertraline Hcl 50 Mg Tablet) 50 mg PO DAILY [facility] Last Admin: 02/02/25 08:13 Dose: 50 mg Trazodone HCl (Trazodone Hcl 50 Mg Tablet) 50 mg PO BEDTIME MRX1 PRN PRN Reason: Insomnia Last Admin: 02/01/25 20:51 Dose: 50 mg Allergies Allergies Allergy/AdvReac Type Severity Reaction Status Date / Time Penicillins (PENICILLINS) Allergy Unknown UNKNOWN Verified 01/25/25 19:26 Assessment & Plan Assessment & Plan (1) Depression: Status: Acute Code(s): F32.A - Depression, unspecified (2) Substance use disorder: Status: Acute Code(s): F19.90 - Other psychoactive substance use, unspecified, uncomplicated (3) Suicidal ideation: Status: Acute Code(s): R45.851 - Suicidal ideations (4) Homicidal thoughts: Status: Acute Code(s): R45.850 - Homicidal ideations Plan 44-year-old [place]-speaking male with history of substance use disorder presents to [facility], via ambulance, yesterday for suicide and homicidal ideation with intends to walk in front of a truck. On interview with the provider and patient's social worker palliative care, patient states that the day he presented to the ED, he had suicide thoughts with plan to walk in front of a truck and thoughts of killing his partner of 20 years (mother of his 4 children), after she finally confirmed she had an affair with another man. Patient states that 6 months ago, he suspected his partner of having an affair with another man, but she has been denying.He also states that the relationship with his partner was fragile prior to the infidelity because his partner does not approve his drug use. He notes sometimes she would leave the house and returned the following day. They were never . However, the patient ended the relationship because of the suspected infidelity. He continues to live with his partner and their 3 children. They have a son who is older and lives out of state. Since the suspected infidelity of his partner, the has been experiencing intermittent suicide ideation, homicidal ideation, and feeling of hopelessness, worthlessness, anhedonia, and anger since the suspicion. He thought about leaving turning on the stove and gas in the house so that the entire house will burn with himself, his partner, and children inside. However, he continues to challenge those thoughts. He states that he would not burn his children to . He recalls feeling of hopelessness, helplessness, worthlessness, and anhedonia which started 8 months ago. He mentions that his mother 25 years ago but he did not cry because he was in good terms with his mother. However, following her , he did not care for life. Eventually, he met his partner and eventually had 4 children with her - that brought meaning to his life. He is not experiencing suicide or homicidal thoughts at this time. He states that he feels ?tranquil during this hospitalization. He called and spoke with the mother of his children this morning and apologized. He told her that he does not plan to return home even though he does not have a place to stay after his discharge. 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 He has had period of sobriety with the longest being 15 years while on Suboxone. He has been using 2-3 bundles of heroin daily for the past 6 months. Prior to that, he was sober for less than a month. He also reports occasional use of cocaine intranasally with last use a week ago. He smoked 2 puffs of cannabis for the first time, 4 days ago. He has been to multiple detox programs with last detox 1-2 years ago. He denies other illicit drug use. He is on prescribed methadone 110 mg daily. U tox positive for cocaine, opitates, fentanyl, and methdone. He drinks alcohol occasionally on holidays, but he drank 6-8 beers 6 days ago. He has been unemployed for over 5 years due to substance use disorder and he lied racing. He has no source of income. He has a current case for possessing and distributing drugs with a hearing scheduled on 02/15/2025. His goal for his hospitalization is to manages anger and depression. Patient is [place]-speaking only. In-person placement director utilized. Formulation/Clinical reasoning: Depression: Patient may have been experiencing undiagnosed and untreated depression longer than the 8 months he stated due to multiple psychosocial stressors, including the of his mother 25 years ago which he did not mourn. Chronic heroin and cocaine use may have worsened his depression. His partner having an affair with another man may have worsened his symptoms further, leading to suicide and homicidal thoughts. His goal for this hospitalization is management of his anger and depression. Sertraline 25 mg daily ordered to target depression; advised to take as prescribed. Instructed on the risks, benefits, and potential adverse reactions of the medication. Continue current treatment regimen. Depression management and sobriety will be an ideal goal for long-term symptoms control and recovery. Upon discharge, he wants to be referred to a recovery program that manages dual diagnosis. Hospital Course: 01/28/25: Olanzapine 2.5 mg bid for mood mgt Depakote ER 500 mg HS for headache mgt and mood mgt 01/29 acknowledges he was having angry feelings wanting to kill his and then himself; says he is trying to get over it and that i'm working on it.. He says at this point, he no longer has any plans or intent to hurt anyone, that now they are just feelings...He said love for his daughters has helped him change. That said, he feels if he left today, he would hurt his ...He says im not normally like this... He agrees to increasing zoloft and zyprexa... -he would very much like to see his 16 yo --AH started last night (first time ever); they just mumble -talked about struggles with drug addiction 01/30 patient reports he is doing little better. No SI or HI any longer; talked to his in trying to work things out; trying to keep his anger and check 02/01 Increase Olanzapine to 10 mg bid Increase Depakote ER to 750 mg HS 02/02 Consolidate Olanzapine to 20 mg HS Depakote decrease to 500 mg HS-not helpful for his chronic headache Plan Admit to M5. CV 15 minutes check. Increase Zoloft to 50mg Increase Zyprexa to 5mg BID Diagnostics as needed. Collateral contact. Continue remainder of regime. Encouraged full milieu. Discharge planning. Reason for continued inpatient stay Substantial Risk for: rapid decompensation Time Spent With Patient Time: Total time managing care of this patient today ____ minutes.
[2025-02-02] MEDS: Magnesium Hydrox/Alum Hydrox 30 ML ORAL.SUSP PO (14:28)
[2025-02-02] MEDS: Milk of Magnesia 30 ML ORAL.SUSP PO (19:00)
[2025-02-02 20:15] VITALS: BP 131/76; PULSE 96; RESP 18; TEMP 36.3; O2SAT 98
[2025-02-02] MEDS: Carbamide Peroxide 6.5% Otic 15 ML DRPBTL 5 DROP EAR-BOTH (21:12)
[2025-02-03] MEDS: Magnesium Hydrox/Alum Hydrox 30 ML ORAL.SUSP PO ×2 (00:23→23:36)
[2025-02-03 07:00] VITALS: BMI 36.7
[2025-02-03] MEDS: methADONE HCl 20 MG/2 ML ORAL.CONC 110 MG PO (07:43)
[2025-02-03 08:00] VITALS: BP 158/87; PULSE 90; TEMP 36.3; O2SAT 93
[2025-02-03] MEDS: Nicotine 21 MG PATCH.TD24 TRANSDERMA (08:44)
[2025-02-03] MEDS: Carbamide Peroxide 6.5% Otic 15 ML DRPBTL 5 DROP EAR-BOTH ×2 (08:46→21:35)
[2025-02-03] MEDS: Lidocaine 4 % Patch ADH..PATCH 1 PATCH TRANSDERMA (08:46)
--- NOTE | 2025-02-03 16:42 | P.PNPSI_ITS ---
Subjective Subjective Date of Service: 02/03/25 Reason For Visit: SI Subjective Notes: Conditional Voluntary Healthcare Proxy: No Guardianship: No Medical Problems Affecting Mental Status: No Interim History: Reports he has asked his to forgive him for his disrespectful treatment of her. He reports she told him she understands. Denies HI, I don't want to leave my daughter's alone. Suicidality continues to decrease. Reports sleeping well. Team discussed current referrals to [facility] and [facility] which pt agreed with and expressed gratitude to his social sciences instructor for making these referrals. I feel like I am finding myself here I am praying here. Healing . Denies HI, SI decreased. Denies AH,VH Medication Compliance: Yes Side effects from medications: No Attending Groups: Intermittent Review of Systems Acute medical concerns: No Medical Review of Systems: unchanged Review of Systems Review of Systems Intermittent sedation from Methadone Mental Status Exam Mental Status Exam Patient Appearance: Fatigued Patient Orientation: Person, Place, Time and Situation Level of Consciousness: Alert Patient Behavior: Talkative and Good Eye Contact Mood Description: Constricted Affect Description: Constricted Patient Cognition Impaired: No Ability to Follow Directions: Good Speech Pattern: Spontaneous Speech Memory Description: Intact Hallucinations: None Delusions: Not Present Perceptual Disturbances: Derealization Thought Process: Distracted and Rumination Thought Content: positive for Circumstantial, positive for Perseveration and positive for Suicidal Ideation Depressive Symptoms: Thoughts of /Suicide Judgement: Good Diagnostics Vital Signs (24Hr): Vital Signs - 24 hr 02/02/25 20:15 02/03/25 08:00 Temperature 97.3 F 97.3 F Pulse Rate 96 90 Respiratory Rate 18 Blood Pressure 131/76 158/87 H Pulse Oximetry 98 93 Oxygen Delivery Method Room Air Room Air BMI result Body Mass Index 36.7 Labs 01/25/25 18:16 01/29/25 10:01 Medications Medications Current Medications Acetaminophen (Acetaminophen 325 Mg Tablet) 650 mg PO Q6H PRN PRN Reason: Headache/Pain, Scale 1-10 Last Admin: 02/03/25 09:03 Dose: 650 mg Al Hydroxide/Mg Hydroxide (Magnesium Hydrox/Alum Hydrox 30 Ml Oral.Susp) 30 ml PO Q6H PRN PRN Reason: Heartburn/Nausea Last Admin: 02/03/25 00:23 Dose: 30 ml Carbamide Peroxide (Carbamide Peroxide 6.5% Otic 15 Ml Drpbtl) 5 drop EAR-BOTH BID CUCA Stop: 02/06/25 11:30 Last Admin: 02/03/25 08:46 Dose: 5 drop Clonidine HCl (Clonidine Hcl 0.1 Mg Tablet) 0.1 mg PO Q4H PRN; Protocol PRN Reason: moderate anxiety Last Admin: 02/01/25 02:33 Dose: 0.1 mg Divalproex Sodium (Divalproex Sodium Er 500 Mg Tab.Er.24h) 500 mg PO BEDTIME [facility] Last Admin: 02/02/25 21:11 Dose: 500 mg Hydroxyzine HCl (Hydroxyzine Hcl 25 Mg Tablet) 25 mg PO Q6H PRN PRN Reason: mild anxiety Last Admin: 01/29/25 11:10 Dose: 25 mg Ibuprofen (Ibuprofen 600 Mg Tablet) 600 mg PO Q6H PRN PRN Reason: back pain Last Admin: 02/03/25 04:44 Dose: 600 mg Lidocaine (Lidocaine 4 % Patch Adh..Patch) 1 patch TRANSDERMA DAILY PRN; Protocol PRN Reason: lower back pain Last Admin: 02/03/25 08:46 Dose: 1 patch Magnesium Hydroxide (Milk Of Magnesia 30 Ml Oral.Susp) 30 ml PO DAILY PRN PRN Reason: Constipation Last Admin: 02/02/25 19:00 Dose: 30 ml Methadone HCl (Methadone Hcl 20 Mg/2 Ml Oral.Conc) 110 mg PO DAILY [facility] Last Admin: 02/03/25 07:43 Dose: 110 mg Nicotine (Nicotine 21 Mg Patch.Td24) 21 mg TRANSDERMA DAILY PRN PRN Reason: smoking cessation Last Admin: 02/03/25 08:44 Dose: 21 mg Nicotine Polacrilex (Nicotine Polacrilex 2 Mg Gum) 4 mg BUCCAL Q2H PRN PRN Reason: Nicotine Cravings Last Admin: 02/02/25 08:46 Dose: 4 mg Olanzapine (Olanzapine 5 Mg Tablet) 5 mg PO TID PRN PRN Reason: agitation Last Admin: 01/29/25 03:57 Dose: 5 mg Olanzapine (Olanzapine 2.5 Mg Tablet) 2.5 mg PO TID PRN PRN Reason: mild agitation Olanzapine (Olanzapine 10 Mg Tablet) 20 mg PO BEDTIME [facility] Last Admin: 02/02/25 21:11 Dose: 20 mg Pseudoephedrine HCl (Pseudoephedrine Hcl 30 Mg Tablet) 30 mg PO Q6H PRN PRN Reason: Congestion Last Admin: 02/01/25 19:01 Dose: 30 mg Sertraline HCl (Sertraline Hcl 50 Mg Tablet) 50 mg PO DAILY [facility] Last Admin: 02/03/25 08:46 Dose: 50 mg Trazodone HCl (Trazodone Hcl 50 Mg Tablet) 50 mg PO BEDTIME MRX1 PRN PRN Reason: Insomnia Last Admin: 02/03/25 00:23 Dose: 50 mg Allergies Allergies Allergy/AdvReac Type Severity Reaction Status Date / Time Penicillins (PENICILLINS) Allergy Unknown UNKNOWN Verified 01/25/25 19:26 Assessment & Plan Assessment & Plan (1) Depression: Status: Acute Code(s): F32.A - Depression, unspecified (2) Substance use disorder: Status: Acute Code(s): F19.90 - Other psychoactive substance use, unspecified, uncomplicated (3) Suicidal ideation: Status: Acute Code(s): R45.851 - Suicidal ideations (4) Homicidal thoughts: Status: Acute Code(s): R45.850 - Homicidal ideations Plan 44-year-old Italian-speaking male with history of substance use disorder [place] [facility] via ambulance, yesterday for suicide and homicidal ideation with intends to walk in front of a truck. On interview with the provider and patient's social sciences instructor, patient states that the day he presented to the ED, he had suicide thoughts with plan to walk in front of a truck and thoughts of killing his partner of 20 years (mother of his 4 children), after she finally confirmed she had an affair with another man. Patient states that 6 months ago, he suspected his partner of having an affair with another man, but she has been denying.He also states that the relationship with his partner was fragile prior to the infidelity because his partner does not approve his drug use. He notes sometimes she would leave the house and returned the following day. They were never . However, the patient ended the relationship because of the suspected infidelity. He continues to live with his partner and their 3 children. They have a son who is older and lives out of state. Since the suspected infidelity of his partner, the has been experiencing intermittent suicide ideation, homicidal ideation, and feeling of hopelessness, worthlessness, anhedonia, and anger since the suspicion. He thought about leaving turning on the stove and gas in the house so that the entire house will burn with himself, his partner, and children inside. However, he continues to challenge those thoughts. He states that he would not burn his children to . He recalls feeling of hopelessness, helplessness, worthlessness, and anhedonia which started 8 months ago. He mentions that his mother 25 years ago but he did not cry because he was in good terms with his mother. However, following her , he did not care for life. Eventually, he met his partner and eventually had 4 children with her - that brought meaning to his life. He is not experiencing suicide or homicidal thoughts at this time. He states that he feels ?tranquil during this hospitalization. He called and spoke with the mother of his children this morning and apologized. He told her that he does not plan to return home even though he does not have a place to stay after his discharge. 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 He has had period of sobriety with the longest being 15 years while on Suboxone. He has been using 2-3 bundles of heroin daily for the past 6 months. Prior to that, he was sober for less than a month. He also reports occasional use of cocaine intranasally with last use a week ago. He smoked 2 puffs of cannabis for the first time, 4 days ago. He has been to multiple detox programs with last detox 1-2 years ago. He denies other illicit drug use. He is on prescribed methadone 110 mg daily. U tox positive for cocaine, opitates, fentanyl, and methdone. He drinks alcohol occasionally on holidays, but he drank 6-8 beers 6 days ago. He has been unemployed for over 5 years due to substance use disorder and he lied racing. He has no source of income. He has a current case for possessing and distributing drugs with a hearing scheduled on 02/15/2025. His goal for his hospitalization is to manages anger and depression. Patient is Italian-speaking only. In-person deaf interpreter utilized. Formulation/Clinical reasoning: Depression: Patient may have been experiencing undiagnosed and untreated depression longer than the 8 months he stated due to multiple psychosocial stressors, including the of his mother 25 years ago which he did not mourn. Chronic heroin and cocaine use may have worsened his depression. His partner having an affair with another man may have worsened his symptoms further, leading to suicide and homicidal thoughts. His goal for this hospitalization is management of his anger and depression. Sertraline 25 mg daily ordered to target depression; advised to take as prescribed. Instructed on the risks, benefits, and potential adverse reactions of the medication. Continue current treatment regimen. Depression management and sobriety will be an ideal goal for long-term symptoms control and recovery. Upon discharge, he wants to be referred to a recovery program that manages dual diagnosis. Hospital Course: 01/28/25: Olanzapine 2.5 mg bid for mood mgt Depakote ER 500 mg HS for headache mgt and mood mgt 01/29 acknowledges he was having angry feelings wanting to kill his and then himself; says he is trying to get over it and that i'm working on it.. He says at this point, he no longer has any plans or intent to hurt anyone, that now they are just feelings...He said love for his daughters has helped him change. That said, he feels if he left today, he would hurt his ...He says im not normally like this... He agrees to increasing zoloft and zyprexa... -he would very much like to see his 16 yo --AH started last night (first time ever); they just mumble -talked about struggles with drug addiction 01/30 patient reports he is doing little better. No SI or HI any longer; talked to his in trying to work things out; trying to keep his anger and check 02/01 Increase Olanzapine to 10 mg bid Increase Depakote ER to 750 mg HS 02/03 Continue tx Plan Admit to M5. CV 15 minutes check. Increase Zoloft to 50mg Increase Zyprexa to 5mg BID Diagnostics as needed. Collateral contact. Continue remainder of regime. Encouraged full milieu. Discharge planning. Reason for continued inpatient stay Substantial Risk for: rapid decompensation Time Spent With Patient Time: Total time managing care of this patient today ____ minutes.
[2025-02-03 20:00] VITALS: BP 140/67; PULSE 95; RESP 16; TEMP 36.3; O2SAT 92
[2025-02-03 21:34] VITALS: BP 140/67
[2025-02-04] MEDS: methADONE HCl 20 MG/2 ML ORAL.CONC 110 MG PO (08:15)
[2025-02-04] MEDS: Carbamide Peroxide 6.5% Otic 15 ML DRPBTL 5 DROP EAR-BOTH ×2 (09:33→20:30)
--- NOTE | 2025-02-04 09:53 | P.PNPSI_ITS ---
Subjective Subjective Date of Service: 02/04/25 Reason For Visit: SI Subjective Notes: Conditional Voluntary Healthcare Proxy: No Guardianship: No Medical Problems Affecting Mental Status: No Interim History: Denies SI,HI,AH,VH Team continues to apply for [facility] programs for pt to continue tx. Pt reports on 02/09, his son, whom he has not seen in 22 years, will visit. Pt requests that he be allowed to visit with his son and daughters at the same time. This was approved by admin team. Pt reports he is working on resolution with his ex-partner and believes he is making progress. Discussed chronic headache. Will get CT scan and continue to attempt trials to assist in sx mgt. Medication Compliance: Yes Side effects from medications: No Attending Groups: Intermittent Review of Systems Acute medical concerns: No Medical Review of Systems: unchanged Review of Systems Review of Systems chronic headache Mental Status Exam Mental Status Exam Patient Appearance: Fatigued Patient Orientation: Person, Place, Time and Situation Level of Consciousness: Alert Patient Behavior: Talkative and Good Eye Contact Mood Description: Constricted Affect Description: Constricted Patient Cognition Impaired: No Ability to Follow Directions: Good Speech Pattern: Spontaneous Speech Memory Description: Intact Hallucinations: None Delusions: Not Present Perceptual Disturbances: Derealization Thought Process: Distracted and Rumination Thought Content: positive for Circumstantial and positive for Perseveration Judgement: Good Diagnostics Vital Signs (24Hr): Vital Signs - 24 hr 02/03/25 20:00 02/03/25 21:34 Temperature 97.3 F Pulse Rate 95 Respiratory Rate 16 Blood Pressure 140/67 H 140/67 H Pulse Oximetry 92 Oxygen Delivery Method Room Air BMI result Body Mass Index 36.7 Labs 01/25/25 18:16 01/29/25 10:01 Medications Medications Current Medications Acetaminophen (Acetaminophen 325 Mg Tablet) 650 mg PO Q6H PRN PRN Reason: Headache/Pain, Scale 1-10 Last Admin: 02/03/25 23:34 Dose: 650 mg Al Hydroxide/Mg Hydroxide (Magnesium Hydrox/Alum Hydrox 30 Ml Oral.Susp) 30 ml PO Q6H PRN PRN Reason: Heartburn/Nausea Last Admin: 02/03/25 23:36 Dose: 30 ml Carbamide Peroxide (Carbamide Peroxide 6.5% Otic 15 Ml Drpbtl) 5 drop EAR-BOTH BID [facility] Stop: 02/06/25 11:30 Last Admin: 02/04/25 09:33 Dose: 5 drop Clonidine HCl (Clonidine Hcl 0.1 Mg Tablet) 0.1 mg PO Q4H PRN; Protocol PRN Reason: moderate anxiety Last Admin: 02/03/25 21:34 Dose: 0.1 mg Divalproex Sodium (Divalproex Sodium Er 500 Mg Tab.Er.24h) 500 mg PO BEDTIME [facility] Last Admin: 02/03/25 21:33 Dose: 500 mg Hydroxyzine HCl (Hydroxyzine Hcl 25 Mg Tablet) 25 mg PO Q6H PRN PRN Reason: mild anxiety Last Admin: 01/29/25 11:10 Dose: 25 mg Ibuprofen (Ibuprofen 600 Mg Tablet) 600 mg PO Q6H PRN PRN Reason: back pain Last Admin: 02/03/25 21:33 Dose: 600 mg Lidocaine (Lidocaine 4 % Patch Adh..Patch) 1 patch TRANSDERMA DAILY PRN; Protocol PRN Reason: lower back pain Last Admin: 02/03/25 08:46 Dose: 1 patch Loperamide HCl (Loperamide Hcl 2 Mg Capsule) 2 mg PO Q4H PRN PRN Reason: Diarrhea Magnesium Hydroxide (Milk Of Magnesia 30 Ml Oral.Susp) 30 ml PO DAILY PRN PRN Reason: Constipation Last Admin: 02/02/25 19:00 Dose: 30 ml Methadone HCl (Methadone Hcl 20 Mg/2 Ml Oral.Conc) 110 mg PO DAILY [facility] Last Admin: 02/04/25 08:15 Dose: 110 mg Nicotine (Nicotine 21 Mg Patch.Td24) 21 mg TRANSDERMA DAILY PRN PRN Reason: smoking cessation Last Admin: 02/03/25 08:44 Dose: 21 mg Nicotine Polacrilex (Nicotine Polacrilex 2 Mg Gum) 4 mg BUCCAL Q2H PRN PRN Reason: Nicotine Cravings Last Admin: 02/02/25 08:46 Dose: 4 mg Olanzapine (Olanzapine 5 Mg Tablet) 5 mg PO TID PRN PRN Reason: agitation Last Admin: 01/29/25 03:57 Dose: 5 mg Olanzapine (Olanzapine 2.5 Mg Tablet) 2.5 mg PO TID PRN PRN Reason: mild agitation Olanzapine (Olanzapine 10 Mg Tablet) 20 mg PO BEDTIME [facility] Last Admin: 02/03/25 21:35 Dose: 20 mg Pseudoephedrine HCl (Pseudoephedrine Hcl 30 Mg Tablet) 30 mg PO Q6H PRN PRN Reason: Congestion Last Admin: 02/01/25 19:01 Dose: 30 mg Sertraline HCl (Sertraline Hcl 50 Mg Tablet) 50 mg PO DAILY [facility] Last Admin: 02/04/25 09:30 Dose: 50 mg Trazodone HCl (Trazodone Hcl 50 Mg Tablet) 50 mg PO BEDTIME MRX1 PRN PRN Reason: Insomnia Last Admin: 02/04/25 01:24 Dose: 50 mg Allergies Allergies Allergy/AdvReac Type Severity Reaction Status Date / Time Penicillins (PENICILLINS) Allergy Unknown UNKNOWN Verified 01/25/25 19:26 Assessment & Plan Assessment & Plan (1) Depression: Status: Acute Code(s): F32.A - Depression, unspecified (2) Substance use disorder: Status: Acute Code(s): F19.90 - Other psychoactive substance use, unspecified, uncomplicated (3) Suicidal ideation: Status: Acute Code(s): R45.851 - Suicidal ideations (4) Homicidal thoughts: Status: Acute Code(s): R45.850 - Homicidal ideations Plan 44-year-old Angolan-speaking male with history of substance use disorder presents to [facility] [place] [facility], via ambulance, yesterday for suicide and homicidal ideation with intends to walk in front of a truck. On interview with the provider and patient's licensed social worker, patient states that the day he presented to the ED, he had suicide thoughts with plan to walk in front of a truck and thoughts of killing his partner of 20 years (mother of his 4 children), after she finally confirmed she had an affair with another man. Patient states that 6 months ago, he suspected his partner of having an affair with another man, but she has been denying.He also states that the relationship with his partner was fragile prior to the infidelity because his partner does not approve his drug use. He notes sometimes she would leave the house and returned the following day. They were never . However, the patient ended the relationship because of the suspected infidelity. He continues to live with his partner and their 3 children. They have a son who is older and lives out of state. Since the suspected infidelity of his partner, the has been experiencing intermittent suicide ideation, homicidal ideation, and feeling of hopelessness, worthlessness, anhedonia, and anger since the suspicion. He thought about leaving turning on the stove and gas in the house so that the entire house will burn with himself, his partner, and children inside. However, he continues to challenge those thoughts. He states that he would not burn his children to . He recalls feeling of hopelessness, helplessness, worthlessness, and anhedonia which started 8 months ago. He mentions that his mother 25 years ago but he did not cry because he was in good terms with his mother. However, following her , he did not care for life. Eventually, he met his partner and eventually had 4 children with her - that brought meaning to his life. He is not experiencing suicide or homicidal thoughts at this time. He states that he feels ?tranquil during this hospitalization. He called and spoke with the mother of his children this morning and apologized. He told her that he does not plan to return home even though he does not have a place to stay after his discharge. 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 He has had period of sobriety with the longest being 15 years while on Suboxone. He has been using 2-3 bundles of heroin daily for the past 6 months. Prior to that, he was sober for less than a month. He also reports occasional use of cocaine intranasally with last use a week ago. He smoked 2 puffs of cannabis for the first time, 4 days ago. He has been to multiple detox programs with last detox 1-2 years ago. He denies other illicit drug use. He is on prescribed methadone 110 mg daily. U tox positive for cocaine, opitates, fentanyl, and methdone. He drinks alcohol occasionally on holidays, but he drank 6-8 beers 6 days ago. He has been unemployed for over 5 years due to substance use disorder and he lied racing. He has no source of income. He has a current case for possessing and distributing drugs with a hearing scheduled on 02/15/2025. His goal for his hospitalization is to manages anger and depression. Patient is Angolan-speaking only. In-person foreign language interpreter utilized. Formulation/Clinical reasoning: Depression: Patient may have been experiencing undiagnosed and untreated depression longer than the 8 months he stated due to multiple psychosocial stressors, including the of his mother 25 years ago which he did not mourn. Chronic heroin and cocaine use may have worsened his depression. His partner having an affair with another man may have worsened his symptoms further, leading to suicide and homicidal thoughts. His goal for this hospitalization is management of his anger and depression. Sertraline 25 mg daily ordered to target depression; advised to take as prescribed. Instructed on the risks, benefits, and potential adverse reactions of the medication. Continue current treatment regimen. Depression management and sobriety will be an ideal goal for long-term symptoms control and recovery. Upon discharge, he wants to be referred to a recovery program that manages dual diagnosis. Hospital Course: 01/28/25: Olanzapine 2.5 mg bid for mood mgt Depakote ER 500 mg HS for headache mgt and mood mgt 01/29 acknowledges he was having angry feelings wanting to kill his and then himself; says he is trying to get over it and that i'm working on it.. He says at this point, he no longer has any plans or intent to hurt anyone, that now they are just feelings...He said love for his daughters has helped him change. That said, he feels if he left today, he would hurt his ...He says im not normally like this... He agrees to increasing zoloft and zyprexa... -he would very much like to see his 16 yo --AH started last night (first time ever); they just mumble -talked about struggles with drug addiction 01/30 patient reports he is doing little better. No SI or HI any longer; talked to his in trying to work things out; trying to keep his anger and check 02/01 Increase Olanzapine to 10 mg bid Increase Depakote ER to 750 mg HS 02/03 Continue tx 02/04 Decrease Depakote to 250 mg HS. DC on 02/06 Topamax 25 mg bid (trial for mgt of chronic headache) CAT Brain Plan Admit to M5. CV 15 minutes check. Increase Zoloft to 50mg Increase Zyprexa to 5mg BID Diagnostics as needed. Collateral contact. Continue remainder of regime. Encouraged full milieu. Discharge planning. Reason for continued inpatient stay Substantial Risk for: rapid decompensation and med/psych decompensation Time Spent With Patient Time: Total time managing care of this patient today ____ minutes.
[2025-02-04] MEDS: Nicotine 21 MG PATCH.TD24 TRANSDERMA (09:59)
[2025-02-04] MEDS: Lidocaine 4 % Patch ADH..PATCH 1 PATCH TRANSDERMA (09:59)
[2025-02-04] MEDS: Magnesium Hydrox/Alum Hydrox 30 ML ORAL.SUSP PO (19:03)
[2025-02-04 20:00] VITALS: BP 150/83; PULSE 103; RESP 15; TEMP 36.8; O2SAT 94
[2025-02-04] MEDS: Divalproex Sodium ER 250 MG TAB.ER.24H PO (20:30)
--- NOTE | 2025-02-05 07:02 | HO.PSYCHPN ---
Subjective Subjective Date of Service: 02/05/25 Reason For Visit: SI Interim History: met with patient [place] [id number]. reports he is doing well. Mood improving. Sleep okay. No concerns around medications. Hopeful he can visit with his children this coming Friday. Reports that talking and being in the hospital has helped him feel less angry and adamantly denies thoughts of hurting his . Medication Compliance: Yes Side effects from medications: No Attending Groups: Intermittent Review of Systems Acute medical concerns: No Review of Systems Review of Systems Nothing acute Mental Status Exam Mental Status Exam Narrative: pleasant. Engaged. Casually dressed. Fair self-care. Organized but did appear slightly sedate at times. Less depressed and anxious. No SI. No HI. No psychosis. Insight and judgment fair Patient Appearance: Fatigued Patient Orientation: Person, Place, Time and Situation Level of Consciousness: Alert Patient Behavior: Talkative and Good Eye Contact Mood Description: Constricted Affect Description: Constricted Patient Cognition Impaired: No Ability to Follow Directions: Good Speech Pattern: Spontaneous Speech Memory Description: Intact Diagnostics Vital Signs (24Hr): Vital Signs - 24 hr 02/04/25 20:00 Temperature 98.2 F Pulse Rate 103 H Respiratory Rate 15 Blood Pressure 150/83 H Pulse Oximetry 94 BMI result Body Mass Index 36.7 Labs 01/25/25 18:16 01/29/25 10:01 Medications Medications Current Medications Acetaminophen (Acetaminophen 325 Mg Tablet) 650 mg PO Q6H PRN PRN Reason: Headache/Pain, Scale 1-10 Last Admin: 02/05/25 03:59 Dose: 650 mg Al Hydroxide/Mg Hydroxide (Magnesium Hydrox/Alum Hydrox 30 Ml Oral.Susp) 30 ml PO Q6H PRN PRN Reason: Heartburn/Nausea Last Admin: 02/04/25 19:03 Dose: 30 ml Carbamide Peroxide (Carbamide Peroxide 6.5% Otic 15 Ml Drpbtl) 5 drop EAR-BOTH BID CUCA Stop: 02/06/25 11:30 Last Admin: 02/04/25 20:30 Dose: 5 drop Clonidine HCl (Clonidine Hcl 0.1 Mg Tablet) 0.1 mg PO Q4H PRN; Protocol PRN Reason: moderate anxiety Last Admin: 02/04/25 20:29 Dose: 0.1 mg Divalproex Sodium (Divalproex Sodium Er 250 Mg Tab.Er.24h) 250 mg PO BEDTIME CUCA Stop: 02/06/25 22:00 Last Admin: 02/04/25 20:30 Dose: 250 mg Hydroxyzine HCl (Hydroxyzine Hcl 25 Mg Tablet) 25 mg PO Q6H PRN PRN Reason: mild anxiety Last Admin: 02/05/25 00:11 Dose: 25 mg Ibuprofen (Ibuprofen 600 Mg Tablet) 600 mg PO Q6H PRN PRN Reason: back pain Last Admin: 02/05/25 03:59 Dose: 600 mg Lidocaine (Lidocaine 4 % Patch Adh..Patch) 1 patch TRANSDERMA DAILY PRN; Protocol PRN Reason: lower back pain Last Admin: 02/04/25 09:59 Dose: 1 patch Loperamide HCl (Loperamide Hcl 2 Mg Capsule) 2 mg PO Q4H PRN PRN Reason: Diarrhea Magnesium Hydroxide (Milk Of Magnesia 30 Ml Oral.Susp) 30 ml PO DAILY PRN PRN Reason: Constipation Last Admin: 02/02/25 19:00 Dose: 30 ml Methadone HCl (Methadone Hcl 20 Mg/2 Ml Oral.Conc) 110 mg PO DAILY CUCA Last Admin: 02/04/25 08:15 Dose: 110 mg Nicotine (Nicotine 21 Mg Patch.Td24) 21 mg TRANSDERMA DAILY PRN PRN Reason: smoking cessation Last Admin: 02/04/25 09:59 Dose: 21 mg Nicotine Polacrilex (Nicotine Polacrilex 2 Mg Gum) 4 mg BUCCAL Q2H PRN PRN Reason: Nicotine Cravings Last Admin: 02/02/25 08:46 Dose: 4 mg Olanzapine (Olanzapine 5 Mg Tablet) 5 mg PO TID PRN PRN Reason: agitation Last Admin: 01/29/25 03:57 Dose: 5 mg Olanzapine (Olanzapine 2.5 Mg Tablet) 2.5 mg PO TID PRN PRN Reason: mild agitation Olanzapine (Olanzapine 10 Mg Tablet) 20 mg PO BEDTIME CUCA Last Admin: 02/04/25 20:29 Dose: 20 mg Pseudoephedrine HCl (Pseudoephedrine Hcl 30 Mg Tablet) 30 mg PO Q6H PRN PRN Reason: Congestion Last Admin: 02/01/25 19:01 Dose: 30 mg Sertraline HCl (Sertraline Hcl 50 Mg Tablet) 50 mg PO DAILY CUCA Last Admin: 02/04/25 09:30 Dose: 50 mg Topiramate (Topiramate 25 Mg Tablet) 25 mg PO BID CUCA Last Admin: 02/04/25 20:29 Dose: 25 mg Trazodone HCl (Trazodone Hcl 50 Mg Tablet) 50 mg PO BEDTIME MRX1 PRN PRN Reason: Insomnia Last Admin: 02/05/25 00:11 Dose: 50 mg Allergies Allergies Allergy/AdvReac Type Severity Reaction Status Date / Time Penicillins (PENICILLINS) Allergy Unknown UNKNOWN Verified 01/25/25 19:26 Assessment & Plan Assessment & Plan (1) Depression: Status: Acute Code(s): F32.A - Depression, unspecified (2) Substance use disorder: Status: Acute Code(s): F19.90 - Other psychoactive substance use, unspecified, uncomplicated (3) Suicidal ideation: Status: Acute Code(s): R45.851 - Suicidal ideations (4) Homicidal thoughts: Status: Acute Code(s): R45.850 - Homicidal ideations Plan 44-year-old Icelandic-speaking male with history of substance use disorder presents to [facility] ED, via ambulance, yesterday for suicide and homicidal ideation with intends to walk in front of a truck. On interview with the provider and patient's transition social worker, patient states that the day he presented to the ED, he had suicide thoughts with plan to walk in front of a truck and thoughts of killing his partner of 20 years (mother of his 4 children), after she finally confirmed she had an affair with another man. Patient states that 6 months ago, he suspected his partner of having an affair with another man, but she has been denying.He also states that the relationship with his partner was fragile prior to the infidelity because his partner does not approve his drug use. He notes sometimes she would leave the house and returned the following day. They were never . However, the patient ended the relationship because of the suspected infidelity. He continues to live with his partner and their 3 children. They have a son who is older and lives out of state. Since the suspected infidelity of his partner, the has been experiencing intermittent suicide ideation, homicidal ideation, and feeling of hopelessness, worthlessness, anhedonia, and anger since the suspicion. He thought about leaving turning on the stove and gas in the house so that the entire house will burn with himself, his partner, and children inside. However, he continues to challenge those thoughts. He states that he would not burn his children to . He recalls feeling of hopelessness, helplessness, worthlessness, and anhedonia which started 8 months ago. He mentions that his mother 25 years ago but he did not cry because he was in good terms with his mother. However, following her , he did not care for life. Eventually, he met his partner and eventually had 4 children with her - that brought meaning to his life. He is not experiencing suicide or homicidal thoughts at this time. He states that he feels ?tranquil during this hospitalization. He called and spoke with the mother of his children this morning and apologized. He told her that he does not plan to return home even though he does not have a place to stay after his discharge. 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 He has had period of sobriety with the longest being 15 years while on Suboxone. He has been using 2-3 bundles of heroin daily for the past 6 months. Prior to that, he was sober for less than a month. He also reports occasional use of cocaine intranasally with last use a week ago. He smoked 2 puffs of cannabis for the first time, 4 days ago. He has been to multiple detox programs with last detox 1-2 years ago. He denies other illicit drug use. He is on prescribed methadone 110 mg daily. U tox positive for cocaine, opitates, fentanyl, and methdone. He drinks alcohol occasionally on holidays, but he drank 6-8 beers 6 days ago. He has been unemployed for over 5 years due to substance use disorder and he lied racing. He has no source of income. He has a current case for possessing and distributing drugs with a hearing scheduled on 02/15/2025. His goal for his hospitalization is to manages anger and depression. Patient is Icelandic-speaking only. In-person spanish medical interpreter utilized. Formulation/Clinical reasoning: Depression: Patient may have been experiencing undiagnosed and untreated depression longer than the 8 months he stated due to multiple psychosocial stressors, including the of his mother 25 years ago which he did not mourn. Chronic heroin and cocaine use may have worsened his depression. His partner having an affair with another man may have worsened his symptoms further, leading to suicide and homicidal thoughts. His goal for this hospitalization is management of his anger and depression. Sertraline 25 mg daily ordered to target depression; advised to take as prescribed. Instructed on the risks, benefits, and potential adverse reactions of the medication. Continue current treatment regimen. Depression management and sobriety will be an ideal goal for long-term symptoms control and recovery. Upon discharge, he wants to be referred to a recovery program that manages dual diagnosis. Hospital Course: 01/28/25: Olanzapine 2.5 mg bid for mood mgt Depakote ER 500 mg HS for headache mgt and mood mgt 01/29 acknowledges he was having angry feelings wanting to kill his and then himself; says he is trying to get over it and that i'm working on it.. He says at this point, he no longer has any plans or intent to hurt anyone, that now they are just feelings...He said love for his daughters has helped him change. That said, he feels if he left today, he would hurt his ...He says im not normally like this... He agrees to increasing zoloft and zyprexa... -he would very much like to see his 16 yo --AH started last night (first time ever); they just mumble -talked about struggles with drug addiction 01/30 patient reports he is doing little better. No SI or HI any longer; talked to his in trying to work things out; trying to keep his anger and check 02/01 Increase Olanzapine to 10 mg bid Increase Depakote ER to 750 mg HS 02/03 Continue tx 02/04 Decrease Depakote to 250 mg HS. DC on 02/06 Topamax 25 mg bid (trial for mgt of chronic headache) CAT Brain 02/05: no changes Plan Admit to M5. CV 15 minutes check. Increase Zoloft to 50mg Increase Zyprexa to 5mg BID Diagnostics as needed. Collateral contact. Continue remainder of regime. Encouraged full milieu. Discharge planning. Reason for continued inpatient stay Substantial Risk for: rapid decompensation Time Spent With Patient Time: Total time managing care of this patient today ____ minutes.
[2025-02-05] MEDS: methADONE HCl 20 MG/2 ML ORAL.CONC 110 MG PO (07:56)
[2025-02-05 08:00] VITALS: BP 138/84; PULSE 79; RESP 18; TEMP 36.4; O2SAT 95
[2025-02-05] MEDS: Carbamide Peroxide 6.5% Otic 15 ML DRPBTL 5 DROP EAR-BOTH ×2 (08:32→21:26)
[2025-02-05] MEDS: Lidocaine 4 % Patch ADH..PATCH 1 PATCH TRANSDERMA (09:26)
[2025-02-05 20:00] VITALS: BP 137/78; PULSE 85; TEMP 36.6; O2SAT 98
[2025-02-05] MEDS: Divalproex Sodium ER 250 MG TAB.ER.24H PO (21:21)
[2025-02-06] MEDS: methADONE HCl 20 MG/2 ML ORAL.CONC 110 MG PO (07:53)
--- NOTE | 2025-02-06 07:58 | HO.PSYCHPN ---
Subjective Subjective Date of Service: 02/06/25 Reason For Visit: SI Interim History: met with patient utilizing hospital numerical control operator services. Reports he is doing okay. Mood stable. Sleep okay. Did ask about homicidal ideation as there are conflicting reports given to nursing staff versus providers. Reports he spoke with his and feels more at peace with things and that if he did anything to hurt her he would end up in detention which would not be good for his children. Mood improving. Sleep okay. No concerns around medications. Medication Compliance: Yes Side effects from medications: No Attending Groups: Intermittent Review of Systems Acute medical concerns: No Review of Systems Review of Systems Nothing acute Mental Status Exam Mental Status Exam Patient Appearance: Fatigued Patient Orientation: Person, Place, Time and Situation Level of Consciousness: Alert Patient Behavior: Talkative and Good Eye Contact Mood Description: Constricted Affect Description: Constricted Patient Cognition Impaired: No Ability to Follow Directions: Good Speech Pattern: Spontaneous Speech Memory Description: Intact Diagnostics Vital Signs (24Hr): Vital Signs - 24 hr 02/05/25 08:00 02/05/25 20:00 Temperature 97.5 F 97.8 F Pulse Rate 79 85 Respiratory Rate 18 Blood Pressure 138/84 137/78 Pulse Oximetry 95 98 Oxygen Delivery Method Room Air Room Air BMI result Body Mass Index 36.7 Labs 01/25/25 18:16 01/29/25 10:01 Medications Medications Current Medications Acetaminophen (Acetaminophen 325 Mg Tablet) 650 mg PO Q6H PRN PRN Reason: Headache/Pain, Scale 1-10 Last Admin: 02/05/25 23:45 Dose: 650 mg Al Hydroxide/Mg Hydroxide (Magnesium Hydrox/Alum Hydrox 30 Ml Oral.Susp) 30 ml PO Q6H PRN PRN Reason: Heartburn/Nausea Last Admin: 02/04/25 19:03 Dose: 30 ml Carbamide Peroxide (Carbamide Peroxide 6.5% Otic 15 Ml Drpbtl) 5 drop EAR-BOTH BID CUCA Stop: 02/06/25 11:30 Last Admin: 02/05/25 21:26 Dose: 5 drop Clonidine HCl (Clonidine Hcl 0.1 Mg Tablet) 0.1 mg PO Q4H PRN; Protocol PRN Reason: moderate anxiety Last Admin: 02/04/25 20:29 Dose: 0.1 mg Divalproex Sodium (Divalproex Sodium Er 250 Mg Tab.Er.24h) 250 mg PO BEDTIME CUCA Stop: 02/06/25 22:00 Last Admin: 02/05/25 21:21 Dose: 250 mg Hydroxyzine HCl (Hydroxyzine Hcl 25 Mg Tablet) 25 mg PO Q6H PRN PRN Reason: mild anxiety Last Admin: 02/05/25 00:11 Dose: 25 mg Ibuprofen (Ibuprofen 600 Mg Tablet) 600 mg PO Q6H PRN PRN Reason: back pain Last Admin: 02/06/25 06:34 Dose: 600 mg Lidocaine (Lidocaine 4 % Patch Adh..Patch) 1 patch TRANSDERMA DAILY PRN; Protocol PRN Reason: lower back pain Last Admin: 02/05/25 09:26 Dose: 1 patch Loperamide HCl (Loperamide Hcl 2 Mg Capsule) 2 mg PO Q4H PRN PRN Reason: Diarrhea Magnesium Hydroxide (Milk Of Magnesia 30 Ml Oral.Susp) 30 ml PO DAILY PRN PRN Reason: Constipation Last Admin: 02/02/25 19:00 Dose: 30 ml Methadone HCl (Methadone Hcl 20 Mg/2 Ml Oral.Conc) 110 mg PO DAILY CUCA Last Admin: 02/06/25 07:53 Dose: 110 mg Nicotine (Nicotine 21 Mg Patch.Td24) 21 mg TRANSDERMA DAILY PRN PRN Reason: smoking cessation Last Admin: 02/04/25 09:59 Dose: 21 mg Nicotine Polacrilex (Nicotine Polacrilex 2 Mg Gum) 4 mg BUCCAL Q2H PRN PRN Reason: Nicotine Cravings Last Admin: 02/02/25 08:46 Dose: 4 mg Olanzapine (Olanzapine 5 Mg Tablet) 5 mg PO TID PRN PRN Reason: agitation Last Admin: 01/29/25 03:57 Dose: 5 mg Olanzapine (Olanzapine 2.5 Mg Tablet) 2.5 mg PO TID PRN PRN Reason: mild agitation Olanzapine (Olanzapine 10 Mg Tablet) 20 mg PO BEDTIME CUCA Last Admin: 02/05/25 21:21 Dose: 20 mg Oxymetazoline HCl (Oxymetazoline Hcl 0.05 % Nasal 15 Ml [place]) 2 spray NOSTRIL-B BID PRN PRN Reason: Congestion Stop: 02/08/25 13:59 Pseudoephedrine HCl (Pseudoephedrine Hcl 30 Mg Tablet) 30 mg PO Q6H PRN PRN Reason: Congestion Last Admin: 02/01/25 19:01 Dose: 30 mg Sertraline HCl (Sertraline Hcl 50 Mg Tablet) 50 mg PO DAILY [facility] Last Admin: 02/05/25 08:32 Dose: 50 mg Topiramate (Topiramate 25 Mg Tablet) 25 mg PO BID [facility] Last Admin: 02/05/25 21:22 Dose: 25 mg Trazodone HCl (Trazodone Hcl 50 Mg Tablet) 50 mg PO BEDTIME MRX1 PRN PRN Reason: Insomnia Last Admin: 02/05/25 23:45 Dose: 50 mg Allergies Allergies Allergy/AdvReac Type Severity Reaction Status Date / Time Penicillins (PENICILLINS) Allergy Unknown UNKNOWN Verified 01/25/25 19:26 Assessment & Plan Assessment & Plan (1) Depression: Status: Acute Code(s): F32.A - Depression, unspecified (2) Substance use disorder: Status: Acute Code(s): F19.90 - Other psychoactive substance use, unspecified, uncomplicated (3) Suicidal ideation: Status: Acute Code(s): R45.851 - Suicidal ideations (4) Homicidal thoughts: Status: Acute Code(s): R45.850 - Homicidal ideations Plan 44-year-old Cymraes-speaking male with history of substance use disorder presents to [facility], via ambulance, yesterday for suicide and homicidal ideation with intends to walk in front of a truck. On interview with the provider and patient's social media senior associate, patient states that the day he presented to the ED, he had suicide thoughts with plan to walk in front of a truck and thoughts of killing his partner of 20 years (mother of his 4 children), after she finally confirmed she had an affair with another man. Patient states that 6 months ago, he suspected his partner of having an affair with another man, but she has been denying.He also states that the relationship with his partner was fragile prior to the infidelity because his partner does not approve his drug use. He notes sometimes she would leave the house and returned the following day. They were never . However, the patient ended the relationship because of the suspected infidelity. He continues to live with his partner and their 3 children. They have a son who is older and lives out of state. Since the suspected infidelity of his partner, the has been experiencing intermittent suicide ideation, homicidal ideation, and feeling of hopelessness, worthlessness, anhedonia, and anger since the suspicion. He thought about leaving turning on the stove and gas in the house so that the entire house will burn with himself, his partner, and children inside. However, he continues to challenge those thoughts. He states that he would not burn his children to . He recalls feeling of hopelessness, helplessness, worthlessness, and anhedonia which started 8 months ago. He mentions that his mother 25 years ago but he did not cry because he was in good terms with his mother. However, following her , he did not care for life. Eventually, he met his partner and eventually had 4 children with her - that brought meaning to his life. He is not experiencing suicide or homicidal thoughts at this time. He states that he feels ?tranquil during this hospitalization. He called and spoke with the mother of his children this morning and apologized. He told her that he does not plan to return home even though he does not have a place to stay after his discharge. 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 He has had period of sobriety with the longest being 15 years while on Suboxone. He has been using 2-3 bundles of heroin daily for the past 6 months. Prior to that, he was sober for less than a month. He also reports occasional use of cocaine intranasally with last use a week ago. He smoked 2 puffs of cannabis for the first time, 4 days ago. He has been to multiple detox programs with last detox 1-2 years ago. He denies other illicit drug use. He is on prescribed methadone 110 mg daily. U tox positive for cocaine, opitates, fentanyl, and methdone. He drinks alcohol occasionally on holidays, but he drank 6-8 beers 6 days ago. He has been unemployed for over 5 years due to substance use disorder and he lied racing. He has no source of income. He has a current case for possessing and distributing drugs with a hearing scheduled on 02/15/2025. His goal for his hospitalization is to manages anger and depression. Patient is Cymraes-speaking only. In-person official court interpreter utilized. Formulation/Clinical reasoning: Depression: Patient may have been experiencing undiagnosed and untreated depression longer than the 8 months he stated due to multiple psychosocial stressors, including the of his mother 25 years ago which he did not mourn. Chronic heroin and cocaine use may have worsened his depression. His partner having an affair with another man may have worsened his symptoms further, leading to suicide and homicidal thoughts. His goal for this hospitalization is management of his anger and depression. Sertraline 25 mg daily ordered to target depression; advised to take as prescribed. Instructed on the risks, benefits, and potential adverse reactions of the medication. Continue current treatment regimen. Depression management and sobriety will be an ideal goal for long-term symptoms control and recovery. Upon discharge, he wants to be referred to a recovery program that manages dual diagnosis. Hospital Course: 01/28/25: Olanzapine 2.5 mg bid for mood mgt Depakote ER 500 mg HS for headache mgt and mood mgt 01/29 acknowledges he was having angry feelings wanting to kill his and then himself; says he is trying to get over it and that i'm working on it.. He says at this point, he no longer has any plans or intent to hurt anyone, that now they are just feelings...He said love for his daughters has helped him change. That said, he feels if he left today, he would hurt his ...He says im not normally like this... He agrees to increasing zoloft and zyprexa... -he would very much like to see his 16 yo --AH started last night (first time ever); they just mumble -talked about struggles with drug addiction 01/30 patient reports he is doing little better. No SI or HI any longer; talked to his in trying to work things out; trying to keep his anger and check 02/01 Increase Olanzapine to 10 mg bid Increase Depakote ER to 750 mg HS 02/03 Continue tx 02/04 Decrease Depakote to 250 mg HS. DC on 02/06 Topamax 25 mg bid (trial for mgt of chronic headache) CAT Brain 02/05: no changes 02/06/2025: No changes Plan Admit to M5. CV 15 minutes check. Increase Zoloft to 50mg Increase Zyprexa to 5mg BID Diagnostics as needed. Collateral contact. Continue remainder of regime. Encouraged full milieu. Discharge planning. Reason for continued inpatient stay Substantial Risk for: inability to function and rapid decompensation Time Spent With Patient Time: Total time managing care of this patient today ____ minutes.
[2025-02-06 08:00] VITALS: BP 154/75; PULSE 88; RESP 18; TEMP 36.4; O2SAT 95
[2025-02-06] MEDS: Lidocaine 4 % Patch ADH..PATCH 1 PATCH TRANSDERMA (09:55)
[2025-02-06] MEDS: Carbamide Peroxide 6.5% Otic 15 ML DRPBTL 5 DROP EAR-BOTH (09:56)
[2025-02-06 20:00] VITALS: BP 149/84; PULSE 88; RESP 16; TEMP 36.6
[2025-02-06] MEDS: Divalproex Sodium ER 250 MG TAB.ER.24H PO (20:47)
[2025-02-07] MEDS: methADONE HCl 20 MG/2 ML ORAL.CONC 110 MG PO (07:46)
[2025-02-07 08:00] VITALS: BP 127/73; PULSE 96; RESP 18; TEMP 37.1; O2SAT 94
[2025-02-07] MEDS: Lidocaine 4 % Patch ADH..PATCH 1 PATCH TRANSDERMA ×2 (09:15→21:21)
--- NOTE | 2025-02-07 09:50 | HO.PSYCHPN ---
Subjective Subjective Date of Service: 02/07/25 Reason For Visit: SI Subjective Notes: Conditional Voluntary Healthcare Proxy: No Guardianship: No Medical Problems Affecting Mental Status: No Interim History: Erickson reports I am trying. Reports that he is talking with his on the phone, does not feel prepared to see her and continues with some HI toward her. He reports no SI, unless he harms her, then he would have suicidal intent. Asked and received a room change today. Requested decrease of meds due to sedation-decreased Methadone by 5 mg and Olanzapine by 5 mg. Reports back pain- diagnostics ordered. Medication Compliance: Yes Side effects from medications: Yes (sedation) Attending Groups: Intermittent Review of Systems Acute medical concerns: No Medical Review of Systems: unchanged Review of Systems Review of Systems Back pain, sedation Mental Status Exam Mental Status Exam Patient Appearance: Fatigued Patient Orientation: Person, Place, Time and Situation Level of Consciousness: Alert Patient Behavior: Talkative and Good Eye Contact Mood Description: Constricted Affect Description: Constricted Patient Cognition Impaired: No Ability to Follow Directions: Good Speech Pattern: Spontaneous Speech Memory Description: Intact Diagnostics Vital Signs (24Hr): Vital Signs - 24 hr 02/06/25 20:00 02/07/25 08:00 Temperature 97.9 F 98.8 F Pulse Rate 88 96 Respiratory Rate 16 18 Blood Pressure 149/84 H 127/73 Pulse Oximetry 94 Oxygen Delivery Method Room Air Room Air BMI result Body Mass Index 36.7 Labs 01/25/25 18:16 01/29/25 10:01 Medications Medications Current Medications Acetaminophen (Acetaminophen 325 Mg Tablet) 650 mg PO Q6H PRN PRN Reason: Headache/Pain, Scale 1-10 Last Admin: 02/07/25 01:35 Dose: 650 mg Al Hydroxide/Mg Hydroxide (Magnesium Hydrox/Alum Hydrox 30 Ml Oral.Susp) 30 ml PO Q6H PRN PRN Reason: Heartburn/Nausea Last Admin: 02/04/25 19:03 Dose: 30 ml Clonidine HCl (Clonidine Hcl 0.1 Mg Tablet) 0.1 mg PO Q4H PRN; Protocol PRN Reason: moderate anxiety Last Admin: 02/04/25 20:29 Dose: 0.1 mg Hydroxyzine HCl (Hydroxyzine Hcl 25 Mg Tablet) 25 mg PO Q6H PRN PRN Reason: mild anxiety Last Admin: 02/06/25 20:47 Dose: 25 mg Ibuprofen (Ibuprofen 600 Mg Tablet) 600 mg PO Q6H PRN PRN Reason: back pain Last Admin: 02/06/25 20:47 Dose: 600 mg Lidocaine (Lidocaine 4 % Patch Adh..Patch) 1 patch TRANSDERMA DAILY PRN; Protocol PRN Reason: lower back pain Last Admin: 02/07/25 09:15 Dose: 1 patch Loperamide HCl (Loperamide Hcl 2 Mg Capsule) 2 mg PO Q4H PRN PRN Reason: Diarrhea Magnesium Hydroxide (Milk Of Magnesia 30 Ml Oral.Susp) 30 ml PO DAILY PRN PRN Reason: Constipation Last Admin: 02/02/25 19:00 Dose: 30 ml Methadone HCl (Methadone Hcl 20 Mg/2 Ml Oral.Conc) 110 mg PO DAILY [facility] Last Admin: 02/07/25 07:46 Dose: 110 mg Nicotine (Nicotine 21 Mg Patch.Td24) 21 mg TRANSDERMA DAILY PRN PRN Reason: smoking cessation Last Admin: 02/04/25 09:59 Dose: 21 mg Nicotine Polacrilex (Nicotine Polacrilex 2 Mg Gum) 4 mg BUCCAL Q2H PRN PRN Reason: Nicotine Cravings Last Admin: 02/02/25 08:46 Dose: 4 mg Olanzapine (Olanzapine 5 Mg Tablet) 5 mg PO TID PRN PRN Reason: agitation Last Admin: 01/29/25 03:57 Dose: 5 mg Olanzapine (Olanzapine 2.5 Mg Tablet) 2.5 mg PO TID PRN PRN Reason: mild agitation Olanzapine (Olanzapine 10 Mg Tablet) 20 mg PO BEDTIME [facility] Last Admin: 02/06/25 20:47 Dose: 20 mg Oxymetazoline HCl (Oxymetazoline Hcl 0.05 % Nasal 15 Ml [place]) 2 spray NOSTRIL-B BID PRN PRN Reason: Congestion Stop: 02/08/25 13:59 Pseudoephedrine HCl (Pseudoephedrine Hcl 30 Mg Tablet) 30 mg PO Q6H PRN PRN Reason: Congestion Last Admin: 02/01/25 19:01 Dose: 30 mg Sertraline HCl (Sertraline Hcl 50 Mg Tablet) 50 mg PO DAILY [facility] Last Admin: 02/07/25 09:15 Dose: 50 mg Topiramate (Topiramate 25 Mg Tablet) 25 mg PO BID [facility] Last Admin: 02/07/25 09:15 Dose: 25 mg Trazodone HCl (Trazodone Hcl 50 Mg Tablet) 50 mg PO BEDTIME MRX1 PRN PRN Reason: Insomnia Last Admin: 02/07/25 01:35 Dose: 50 mg Allergies Allergies Allergy/AdvReac Type Severity Reaction Status Date / Time Penicillins (PENICILLINS) Allergy Unknown UNKNOWN Verified 01/25/25 19:26 Assessment & Plan Assessment & Plan (1) Depression: Status: Acute Code(s): F32.A - Depression, unspecified (2) Substance use disorder: Status: Acute Code(s): F19.90 - Other psychoactive substance use, unspecified, uncomplicated (3) Suicidal ideation: Status: Acute Code(s): R45.851 - Suicidal ideations (4) Homicidal thoughts: Status: Acute Code(s): R45.850 - Homicidal ideations Plan 44-year-old Argentine-speaking male with history of substance use disorder presents [place] [facility], via ambulance, yesterday for suicide and homicidal ideation with intends to walk in front of a truck. On interview with the provider and patient's social media analyst, patient states that the day he presented to the ED, he had suicide thoughts with plan to walk in front of a truck and thoughts of killing his partner of 20 years (mother of his 4 children), after she finally confirmed she had an affair with another man. Patient states that 6 months ago, he suspected his partner of having an affair with another man, but she has been denying.He also states that the relationship with his partner was fragile prior to the infidelity because his partner does not approve his drug use. He notes sometimes she would leave the house and returned the following day. They were never . However, the patient ended the relationship because of the suspected infidelity. He continues to live with his partner and their 3 children. They have a son who is older and lives out of state. Since the suspected infidelity of his partner, the has been experiencing intermittent suicide ideation, homicidal ideation, and feeling of hopelessness, worthlessness, anhedonia, and anger since the suspicion. He thought about leaving turning on the stove and gas in the house so that the entire house will burn with himself, his partner, and children inside. However, he continues to challenge those thoughts. He states that he would not burn his children to . He recalls feeling of hopelessness, helplessness, worthlessness, and anhedonia which started 8 months ago. He mentions that his mother 25 years ago but he did not cry because he was in good terms with his mother. However, following her , he did not care for life. Eventually, he met his partner and eventually had 4 children with her - that brought meaning to his life. He is not experiencing suicide or homicidal thoughts at this time. He states that he feels ?tranquil during this hospitalization. He called and spoke with the mother of his children this morning and apologized. He told her that he does not plan to return home even though he does not have a place to stay after his discharge. 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 He has had period of sobriety with the longest being 15 years while on Suboxone. He has been using 2-3 bundles of heroin daily for the past 6 months. Prior to that, he was sober for less than a month. He also reports occasional use of cocaine intranasally with last use a week ago. He smoked 2 puffs of cannabis for the first time, 4 days ago. He has been to multiple detox programs with last detox 1-2 years ago. He denies other illicit drug use. He is on prescribed methadone 110 mg daily. U tox positive for cocaine, opitates, fentanyl, and methdone. He drinks alcohol occasionally on holidays, but he drank 6-8 beers 6 days ago. He has been unemployed for over 5 years due to substance use disorder and he lied racing. He has no source of income. He has a current case for possessing and distributing drugs with a hearing scheduled on 02/15/2025. His goal for his hospitalization is to manages anger and depression. Patient is Argentine-speaking only. In-person interior design professional utilized. Formulation/Clinical reasoning: Depression: Patient may have been experiencing undiagnosed and untreated depression longer than the 8 months he stated due to multiple psychosocial stressors, including the of his mother 25 years ago which he did not mourn. Chronic heroin and cocaine use may have worsened his depression. His partner having an affair with another man may have worsened his symptoms further, leading to suicide and homicidal thoughts. His goal for this hospitalization is management of his anger and depression. Sertraline 25 mg daily ordered to target depression; advised to take as prescribed. Instructed on the risks, benefits, and potential adverse reactions of the medication. Continue current treatment regimen. Depression management and sobriety will be an ideal goal for long-term symptoms control and recovery. Upon discharge, he wants to be referred to a recovery program that manages dual diagnosis. Hospital Course: 01/28/25: Olanzapine 2.5 mg bid for mood mgt Depakote ER 500 mg HS for headache mgt and mood mgt 01/29 acknowledges he was having angry feelings wanting to kill his and then himself; says he is trying to get over it and that i'm working on it.. He says at this point, he no longer has any plans or intent to hurt anyone, that now they are just feelings...He said love for his daughters has helped him change. That said, he feels if he left today, he would hurt his ...He says im not normally like this... He agrees to increasing zoloft and zyprexa... -he would very much like to see his 16 yo --AH started last night (first time ever); they just mumble -talked about struggles with drug addiction 01/30 patient reports he is doing little better. No SI or HI any longer; talked to his in trying to work things out; trying to keep his anger and check 02/01 Increase Olanzapine to 10 mg bid Increase Depakote ER to 750 mg HS 02/03 Continue tx 02/04 Decrease Depakote to 250 mg HS. DC on 02/06 Topamax 25 mg bid (trial for mgt of chronic headache) CAT Brain 02/05: no changes 02/06/2025: No changes 02/07/25: Decrease Methadone to 105 mg daily Decrease Olanzapine to 15 mg daily Plan Admit to M5. CV 15 minutes check. Increase Zoloft to 50mg Increase Zyprexa to 5mg BID Diagnostics as needed. Collateral contact. Continue remainder of regime. Encouraged full milieu. Discharge planning. Reason for continued inpatient stay Substantial Risk for: rapid decompensation Time Spent With Patient Time: Total time managing care of this patient today ____ minutes.
[2025-02-07 20:00] VITALS: BP 138/86; PULSE 88; RESP 16; TEMP 36.3; O2SAT 94
[2025-02-07] MEDS: OLANZapine 7.5 MG TABLET 15 MG PO (21:20)
[2025-02-08 08:00] VITALS: BP 133/88; PULSE 78; TEMP 36.1; O2SAT 95
[2025-02-08] MEDS: methADONE HCl 20 MG/2 ML ORAL.CONC 105 MG PO (08:05)
[2025-02-08] MEDS: Nicotine 21 MG PATCH.TD24 TRANSDERMA (08:35)
[2025-02-08] MEDS: Lidocaine 4 % Patch ADH..PATCH 1 PATCH TRANSDERMA ×2 (08:40→21:11)
--- NOTE | 2025-02-08 10:06 | HO.PSYCHPN ---
Subjective Subjective Date of Service: 02/08/25 Reason For Visit: SI Subjective Notes: Conditional Voluntary Healthcare Proxy: No Guardianship: No Medical Problems Affecting Mental Status: No Interim History: Pt visiting with his children today. Team has applied to several programs for pt without acceptance. Pt has court upcoming on 02/15. He continues to report sedation. He does not believe it to be methadone. Will continue to decrease Olanzapine. Denies SI,HI today. Depressive, anxious sx continue to be present. Medication Compliance: Yes Side effects from medications: No Attending Groups: No Review of Systems Acute medical concerns: No Medical Review of Systems: unchanged Review of Systems Review of Systems back pain headaches Mental Status Exam Mental Status Exam Patient Appearance: Fatigued Patient Orientation: Person, Place, Time and Situation Level of Consciousness: Alert Patient Behavior: Talkative and Good Eye Contact Mood Description: Constricted Affect Description: Constricted Patient Cognition Impaired: No Ability to Follow Directions: Good Speech Pattern: Spontaneous Speech Memory Description: Intact Diagnostics Vital Signs (24Hr): Vital Signs - 24 hr 02/07/25 20:00 02/08/25 08:00 Temperature 97.3 F 96.9 F Pulse Rate 88 78 Respiratory Rate 16 Blood Pressure 138/86 133/88 Pulse Oximetry 94 95 Oxygen Delivery Method Room Air Room Air BMI result Body Mass Index 36.7 Labs 01/25/25 18:16 01/29/25 10:01 Imaging Radiology Impressions: ITS Impressions Lumbar Spine X-Ray 02/07/25 13:58 IMPRESSION: 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 Electronically signed by: Tremaine Barboza MD 02/07/2025 02:47 PM [facility] Medications Medications Current Medications Acetaminophen (Acetaminophen 325 Mg Tablet) 650 mg PO Q6H PRN PRN Reason: Headache/Pain, Scale 1-10 Last Admin: 02/07/25 01:35 Dose: 650 mg Al Hydroxide/Mg Hydroxide (Magnesium Hydrox/Alum Hydrox 30 Ml Oral.Susp) 30 ml PO Q6H PRN PRN Reason: Heartburn/Nausea Last Admin: 02/04/25 19:03 Dose: 30 ml Clonidine HCl (Clonidine Hcl 0.1 Mg Tablet) 0.1 mg PO Q4H PRN; Protocol PRN Reason: moderate anxiety Last Admin: 02/04/25 20:29 Dose: 0.1 mg Hydroxyzine HCl (Hydroxyzine Hcl 25 Mg Tablet) 25 mg PO Q6H PRN PRN Reason: mild anxiety Last Admin: 02/06/25 20:47 Dose: 25 mg Ibuprofen (Ibuprofen 600 Mg Tablet) 600 mg PO Q6H PRN PRN Reason: back pain Last Admin: 02/08/25 08:38 Dose: 600 mg Lidocaine (Lidocaine 4 % Patch Adh..Patch) 1 patch TRANSDERMA DAILY PRN; Protocol PRN Reason: lower back pain Last Admin: 02/08/25 08:40 Dose: 1 patch Lidocaine (Lidocaine 4 % Patch Adh..Patch) 1 patch TRANSDERMA BEDTIME [facility]; Protocol Last Admin: 02/07/25 21:21 Dose: 1 patch Loperamide HCl (Loperamide Hcl 2 Mg Capsule) 2 mg PO Q4H PRN PRN Reason: Diarrhea Magnesium Hydroxide (Milk Of Magnesia 30 Ml Oral.Susp) 30 ml PO DAILY PRN PRN Reason: Constipation Last Admin: 02/02/25 19:00 Dose: 30 ml Methadone HCl (Methadone Hcl 20 Mg/2 Ml Oral.Conc) 105 mg PO DAILY [facility] Last Admin: 02/08/25 08:05 Dose: 105 mg Nicotine (Nicotine 21 Mg Patch.Td24) 21 mg TRANSDERMA DAILY PRN PRN Reason: smoking cessation Last Admin: 02/08/25 08:35 Dose: 21 mg Nicotine Polacrilex (Nicotine Polacrilex 2 Mg Gum) 4 mg BUCCAL Q2H PRN PRN Reason: Nicotine Cravings Last Admin: 02/02/25 08:46 Dose: 4 mg Olanzapine (Olanzapine 5 Mg Tablet) 5 mg PO TID PRN PRN Reason: agitation Last Admin: 01/29/25 03:57 Dose: 5 mg Olanzapine (Olanzapine 2.5 Mg Tablet) 2.5 mg PO TID PRN PRN Reason: mild agitation Olanzapine (Olanzapine 7.5 Mg Tablet) 15 mg PO BEDTIME [facility] Last Admin: 02/07/25 21:20 Dose: 15 mg Oxymetazoline HCl (Oxymetazoline Hcl 0.05 % Nasal 15 Ml [place]) 2 spray NOSTRIL-B BID PRN PRN Reason: Congestion Stop: 02/08/25 13:59 Pseudoephedrine HCl (Pseudoephedrine Hcl 30 Mg Tablet) 30 mg PO Q6H PRN PRN Reason: Congestion Last Admin: 02/01/25 19:01 Dose: 30 mg Sertraline HCl (Sertraline Hcl 50 Mg Tablet) 50 mg PO DAILY [facility] Last Admin: 02/08/25 08:38 Dose: 50 mg Topiramate (Topiramate 25 Mg Tablet) 25 mg PO BID [facility] Last Admin: 02/08/25 08:38 Dose: 25 mg Trazodone HCl (Trazodone Hcl 50 Mg Tablet) 50 mg PO BEDTIME MRX1 PRN PRN Reason: Insomnia Last Admin: 02/07/25 01:35 Dose: 50 mg Allergies Allergies Allergy/AdvReac Type Severity Reaction Status Date / Time Penicillins (PENICILLINS) Allergy Unknown UNKNOWN Verified 01/25/25 19:26 Assessment & Plan Assessment & Plan (1) Depression: Status: Acute Code(s): F32.A - Depression, unspecified (2) Substance use disorder: Status: Acute Code(s): F19.90 - Other psychoactive substance use, unspecified, uncomplicated (3) Suicidal ideation: Status: Acute Code(s): R45.851 - Suicidal ideations (4) Homicidal thoughts: Status: Acute Code(s): R45.850 - Homicidal ideations Plan 44-year-old Northern Irish-speaking male with history of substance use disorder presents to [facility], via ambulance, yesterday for suicide and homicidal ideation with intends to walk in front of a truck. On interview with the provider and patient's social service agency director, patient states that the day he presented to the ED, he had suicide thoughts with plan to walk in front of a truck and thoughts of killing his partner of 20 years (mother of his 4 children), after she finally confirmed she had an affair with another man. Patient states that 6 months ago, he suspected his partner of having an affair with another man, but she has been denying.He also states that the relationship with his partner was fragile prior to the infidelity because his partner does not approve his drug use. He notes sometimes she would leave the house and returned the following day. They were never . However, the patient ended the relationship because of the suspected infidelity. He continues to live with his partner and their 3 children. They have a son who is older and lives out of state. Since the suspected infidelity of his partner, the has been experiencing intermittent suicide ideation, homicidal ideation, and feeling of hopelessness, worthlessness, anhedonia, and anger since the suspicion. He thought about leaving turning on the stove and gas in the house so that the entire house will burn with himself, his partner, and children inside. However, he continues to challenge those thoughts. He states that he would not burn his children to . He recalls feeling of hopelessness, helplessness, worthlessness, and anhedonia which started 8 months ago. He mentions that his mother 25 years ago but he did not cry because he was in good terms with his mother. However, following her , he did not care for life. Eventually, he met his partner and eventually had 4 children with her - that brought meaning to his life. He is not experiencing suicide or homicidal thoughts at this time. He states that he feels ?tranquil during this hospitalization. He called and spoke with the mother of his children this morning and apologized. He told her that he does not plan to return home even though he does not have a place to stay after his discharge. 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 He has had period of sobriety with the longest being 15 years while on Suboxone. He has been using 2-3 bundles of heroin daily for the past 6 months. Prior to that, he was sober for less than a month. He also reports occasional use of cocaine intranasally with last use a week ago. He smoked 2 puffs of cannabis for the first time, 4 days ago. He has been to multiple detox programs with last detox 1-2 years ago. He denies other illicit drug use. He is on prescribed methadone 110 mg daily. U tox positive for cocaine, opitates, fentanyl, and methdone. He drinks alcohol occasionally on holidays, but he drank 6-8 beers 6 days ago. He has been unemployed for over 5 years due to substance use disorder and he lied racing. He has no source of income. He has a current case for possessing and distributing drugs with a hearing scheduled on 02/15/2025. His goal for his hospitalization is to manages anger and depression. Patient is Northern Irish-speaking only. In-person preparole counseling aide utilized. Formulation/Clinical reasoning: Depression: Patient may have been experiencing undiagnosed and untreated depression longer than the 8 months he stated due to multiple psychosocial stressors, including the of his mother 25 years ago which he did not mourn. Chronic heroin and cocaine use may have worsened his depression. His partner having an affair with another man may have worsened his symptoms further, leading to suicide and homicidal thoughts. His goal for this hospitalization is management of his anger and depression. Sertraline 25 mg daily ordered to target depression; advised to take as prescribed. Instructed on the risks, benefits, and potential adverse reactions of the medication. Continue current treatment regimen. Depression management and sobriety will be an ideal goal for long-term symptoms control and recovery. Upon discharge, he wants to be referred to a recovery program that manages dual diagnosis. Hospital Course: 01/28/25: Olanzapine 2.5 mg bid for mood mgt Depakote ER 500 mg HS for headache mgt and mood mgt 01/29 acknowledges he was having angry feelings wanting to kill his and then himself; says he is trying to get over it and that i'm working on it.. He says at this point, he no longer has any plans or intent to hurt anyone, that now they are just feelings...He said love for his daughters has helped him change. That said, he feels if he left today, he would hurt his ...He says im not normally like this... He agrees to increasing zoloft and zyprexa... -he would very much like to see his 16 yo --AH started last night (first time ever); they just mumble -talked about struggles with drug addiction 01/30 patient reports he is doing little better. No SI or HI any longer; talked to his in trying to work things out; trying to keep his anger and check 02/01 Increase Olanzapine to 10 mg bid Increase Depakote ER to 750 mg HS 02/03 Continue tx 02/04 Decrease Depakote to 250 mg HS. DC on 02/06 Topamax 25 mg bid (trial for mgt of chronic headache) CAT Brain 02/05: no changes 02/06/2025: No changes 02/08/2025: Decrease Olanzapine to 10 mg hs Plan Admit to M5. CV 15 minutes check. Increase Zoloft to 50mg Increase Zyprexa to 5mg BID Diagnostics as needed. Collateral contact. Continue remainder of regime. Encouraged full milieu. Discharge planning. Reason for continued inpatient stay Substantial Risk for: rapid decompensation Time Spent With Patient Time: Total time managing care of this patient today ____ minutes.
[2025-02-08] MEDS: Magnesium Hydrox/Alum Hydrox 30 ML ORAL.SUSP PO (19:23)
[2025-02-08 20:00] VITALS: BP 138/76; PULSE 101; RESP 16; TEMP 36.3; O2SAT 95
[2025-02-09] MEDS: methADONE HCl 20 MG/2 ML ORAL.CONC 105 MG PO (08:03)
[2025-02-09 08:32] VITALS: BP 170/90; PULSE 95; RESP 16; TEMP 36.9; O2SAT 96
[2025-02-09 09:00] VITALS: BP 137/85; PULSE 77; O2SAT 95
[2025-02-09] MEDS: Nicotine 21 MG PATCH.TD24 TRANSDERMA (09:00)
[2025-02-09] MEDS: Lidocaine 4 % Patch ADH..PATCH 1 PATCH TRANSDERMA ×2 (09:26→20:29)
[2025-02-09] MEDS: Magnesium Hydrox/Alum Hydrox 30 ML ORAL.SUSP PO (15:48)
--- NOTE | 2025-02-09 16:25 | P.PNPSI_ITS ---
Subjective Subjective Date of Service: 02/09/25 Reason For Visit: SI Subjective Notes: Conditional Voluntary Healthcare Proxy: No Guardianship: No Medical Problems Affecting Mental Status: No Interim History: Pt continues to report feeling sedate. Sertraline to change to HS dosing, Olanzapine timing changed to 1900. Topiramate discontinued. Discussed with pt the requirement to complete a [place] warning to , Becca Swenson [phone], along with obligation to notify local police. Explained this law to pt which he verbalized understanding of. We will complete this prior to pt's discharge. Pt hoping for respite acceptance. Today, denies SI,HI,AH,VH. Medication Compliance: Yes Side effects from medications: Yes (as noted above, sedation with changes) Attending Groups: Intermittent Review of Systems Acute medical concerns: No Medical Review of Systems: unchanged Review of Systems Review of Systems no Mental Status Exam Mental Status Exam Patient Appearance: Fatigued Patient Orientation: Person, Place, Time and Situation Level of Consciousness: Alert Patient Behavior: Talkative and Good Eye Contact Mood Description: Constricted Affect Description: Constricted Patient Cognition Impaired: No Ability to Follow Directions: Good Speech Pattern: Spontaneous Speech Memory Description: Intact Diagnostics Vital Signs (24Hr): Vital Signs - 24 hr 02/08/25 20:00 02/09/25 08:32 02/09/25 09:00 Temperature 97.4 F 98.4 F Pulse Rate 101 H 95 77 Respiratory Rate 16 16 Blood Pressure 138/76 170/90 H 137/85 Pulse Oximetry 95 96 95 Oxygen Delivery Method Room Air Room Air Room Air BMI result Body Mass Index 36.7 Labs 01/25/25 18:16 01/29/25 10:01 Imaging Radiology Impressions: ITS Impressions Lumbar Spine X-Ray 02/07/25 13:58 IMPRESSION: 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 Electronically signed by: Tremaine Barboza MD 02/07/2025 02:47 PM [facility] Medications Medications Current Medications Acetaminophen (Acetaminophen 325 Mg Tablet) 650 mg PO Q6H PRN PRN Reason: Headache/Pain, Scale 1-10 Last Admin: 02/09/25 14:01 Dose: 650 mg Al Hydroxide/Mg Hydroxide (Magnesium Hydrox/Alum Hydrox 30 Ml Oral.Susp) 30 ml PO Q6H PRN PRN Reason: Heartburn/Nausea Last Admin: 02/09/25 15:48 Dose: 30 ml Clonidine HCl (Clonidine Hcl 0.1 Mg Tablet) 0.1 mg PO Q4H PRN; Protocol PRN Reason: moderate anxiety Last Admin: 02/04/25 20:29 Dose: 0.1 mg Hydroxyzine HCl (Hydroxyzine Hcl 25 Mg Tablet) 25 mg PO Q6H PRN PRN Reason: mild anxiety Last Admin: 02/09/25 00:48 Dose: 25 mg Ibuprofen (Ibuprofen 600 Mg Tablet) 600 mg PO Q6H PRN PRN Reason: back pain Last Admin: 02/09/25 15:46 Dose: 600 mg Lidocaine (Lidocaine 4 % Patch Adh..Patch) 1 patch TRANSDERMA DAILY PRN; Protocol PRN Reason: lower back pain Last Admin: 02/09/25 09:26 Dose: 1 patch Lidocaine (Lidocaine 4 % Patch Adh..Patch) 1 patch TRANSDERMA BEDTIME CUCA; Protocol Last Admin: 02/08/25 21:11 Dose: 1 patch Loperamide HCl (Loperamide Hcl 2 Mg Capsule) 2 mg PO Q4H PRN PRN Reason: Diarrhea Magnesium Hydroxide (Milk Of Magnesia 30 Ml Oral.Susp) 30 ml PO DAILY PRN PRN Reason: Constipation Last Admin: 02/02/25 19:00 Dose: 30 ml Methadone HCl (Methadone Hcl 20 Mg/2 Ml Oral.Conc) 105 mg PO DAILY CUCA Last Admin: 02/09/25 08:03 Dose: 105 mg Nicotine (Nicotine 21 Mg Patch.Td24) 21 mg TRANSDERMA DAILY PRN PRN Reason: smoking cessation Last Admin: 02/09/25 09:00 Dose: 21 mg Nicotine Polacrilex (Nicotine Polacrilex 2 Mg Gum) 4 mg BUCCAL Q2H PRN PRN Reason: Nicotine Cravings Last Admin: 02/02/25 08:46 Dose: 4 mg Olanzapine (Olanzapine 5 Mg Tablet) 5 mg PO TID PRN PRN Reason: agitation Last Admin: 01/29/25 03:57 Dose: 5 mg Olanzapine (Olanzapine 2.5 Mg Tablet) 2.5 mg PO TID PRN PRN Reason: mild agitation Last Admin: 02/09/25 04:25 Dose: 2.5 mg Olanzapine (Olanzapine 10 Mg Tablet) 10 mg PO 1900 CUCA Pseudoephedrine HCl (Pseudoephedrine Hcl 30 Mg Tablet) 30 mg PO Q6H PRN PRN Reason: Congestion Last Admin: 02/01/25 19:01 Dose: 30 mg Sertraline HCl (Sertraline Hcl 50 Mg Tablet) 50 mg PO BEDTIME CUCA Trazodone HCl (Trazodone Hcl 50 Mg Tablet) 50 mg PO BEDTIME MRX1 PRN PRN Reason: Insomnia Last Admin: 02/07/25 01:35 Dose: 50 mg Allergies Allergies Allergy/AdvReac Type Severity Reaction Status Date / Time Penicillins (PENICILLINS) Allergy Unknown UNKNOWN Verified 01/25/25 19:26 Assessment & Plan Assessment & Plan (1) Depression: Status: Acute Code(s): F32.A - Depression, unspecified (2) Substance use disorder: Status: Acute Code(s): F19.90 - Other psychoactive substance use, unspecified, uncomplicated (3) Suicidal ideation: Status: Acute Code(s): R45.851 - Suicidal ideations (4) Homicidal thoughts: Status: Acute Code(s): R45.850 - Homicidal ideations Plan 44-year-old Finnish-speaking male with history of substance use disorder presents to [facility] ED, via ambulance, yesterday for suicide and homicidal ideation with intends to walk in front of a truck. On interview with the provider and patient's social security assessor, patient states that the day he presented to the ED, he had suicide thoughts with plan to walk in front of a truck and thoughts of killing his partner of 20 years (mother of his 4 children), after she finally confirmed she had an affair with another man. Patient states that 6 months ago, he suspected his partner of having an affair with another man, but she has been denying.He also states that the relationship with his partner was fragile prior to the infidelity because his partner does not approve his drug use. He notes sometimes she would leave the house and returned the following day. They were never . However, the patient ended the relationship because of the suspected infidelity. He continues to live with his partner and their 3 children. They have a son who is older and lives out of state. Since the suspected infidelity of his partner, the has been experiencing intermittent suicide ideation, homicidal ideation, and feeling of hopelessness, worthlessness, anhedonia, and anger since the suspicion. He thought about leaving turning on the stove and gas in the house so that the entire house will burn with himself, his partner, and children inside. However, he continues to challenge those thoughts. He states that he would not burn his children to . He recalls feeling of hopelessness, helplessness, worthlessness, and anhedonia which started 8 months ago. He mentions that his mother 25 years ago but he did not cry because he was in good terms with his mother. However, following her , he did not care for life. Eventually, he met his partner and eventually had 4 children with her - that brought meaning to his life. He is not experiencing suicide or homicidal thoughts at this time. He states that he feels ?tranquil during this hospitalization. He called and spoke with the mother of his children this morning and apologized. He told her that he does not plan to return home even though he does not have a place to stay after his discharge. 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 He has had period of sobriety with the longest being 15 years while on Suboxone. He has been using 2-3 bundles of heroin daily for the past 6 months. Prior to that, he was sober for less than a month. He also reports occasional use of cocaine intranasally with last use a week ago. He smoked 2 puffs of cannabis for the first time, 4 days ago. He has been to multiple detox programs with last detox 1-2 years ago. He denies other illicit drug use. He is on prescribed methadone 110 mg daily. U tox positive for cocaine, opitates, fentanyl, and methdone. He drinks alcohol occasionally on holidays, but he drank 6-8 beers 6 days ago. He has been unemployed for over 5 years due to substance use disorder and he lied racing. He has no source of income. He has a current case for possessing and distributing drugs with a hearing scheduled on 02/15/2025. His goal for his hospitalization is to manages anger and depression. Patient is Finnish-speaking only. In-person medical interpreter utilized. Formulation/Clinical reasoning: Depression: Patient may have been experiencing undiagnosed and untreated depression longer than the 8 months he stated due to multiple psychosocial stressors, including the of his mother 25 years ago which he did not mourn. Chronic heroin and cocaine use may have worsened his depression. His partner having an affair with another man may have worsened his symptoms further, leading to suicide and homicidal thoughts. His goal for this hospitalization is management of his anger and depression. Sertraline 25 mg daily ordered to target depression; advised to take as prescribed. Instructed on the risks, benefits, and potential adverse reactions of the medication. Continue current treatment regimen. Depression management and sobriety will be an ideal goal for long-term symptoms control and recovery. Upon discharge, he wants to be referred to a recovery program that manages dual diagnosis. Hospital Course: 01/28/25: Olanzapine 2.5 mg bid for mood mgt Depakote ER 500 mg HS for headache mgt and mood mgt 01/29 acknowledges he was having angry feelings wanting to kill his and then himself; says he is trying to get over it and that i'm working on it.. He says at this point, he no longer has any plans or intent to hurt anyone, that now they are just feelings...He said love for his daughters has helped him change. That said, he feels if he left today, he would hurt his ...He says im not normally like this... He agrees to increasing zoloft and zyprexa... -he would very much like to see his 16 yo --AH started last night (first time ever); they just mumble -talked about struggles with drug addiction 01/30 patient reports he is doing little better. No SI or HI any longer; talked to his in trying to work things out; trying to keep his anger and check 02/01 Increase Olanzapine to 10 mg bid Increase Depakote ER to 750 mg HS 02/03 Continue tx 02/04 Decrease Depakote to 250 mg HS. DC on 02/06 Topamax 25 mg bid (trial for mgt of chronic headache) CAT Brain 02/05: no changes 02/06/2025: No changes 02/08/2025: Decrease Olanzapine to 10 mg hs 02/09/25: Change Sertraline to HS dosing Change Olanzapine to dosing at 1900 DC Topiramate Plan Admit to M5. CV 15 minutes check. Increase Zoloft to 50mg Increase Zyprexa to 5mg BID Diagnostics as needed. Collateral contact. Continue remainder of regime. Encouraged full milieu. Discharge planning. Reason for continued inpatient stay Substantial Risk for: stable for discharge Time Spent With Patient Time: Total time managing care of this patient today ____ minutes.
[2025-02-09 20:00] VITALS: BP 170/96; PULSE 102; TEMP 36.4; O2SAT 96
[2025-02-10] MEDS: methADONE HCl 20 MG/2 ML ORAL.CONC 105 MG PO (07:41)
[2025-02-10 08:00] VITALS: BP 146/95; PULSE 85; RESP 18; TEMP 36.2; O2SAT 94
--- NOTE | 2025-02-10 09:49 | P.PNPSI_ITS ---
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 Electronically signed by: Tremaine Barboza MD 02/07/2025 02:47 PM [facility] Medications Current Medications Acetaminophen (Acetaminophen 325 Mg Tablet) 650 mg PO Q6H PRN PRN Reason: Headache/Pain, Scale 1-10 Last Admin: 02/09/25 14:01 Dose: 650 mg Al Hydroxide/Mg Hydroxide (Magnesium Hydrox/Alum Hydrox 30 Ml Oral.Susp) 30 ml PO Q6H PRN PRN Reason: Heartburn/Nausea Last Admin: 02/09/25 15:48 Dose: 30 ml Clonidine HCl (Clonidine Hcl 0.1 Mg Tablet) 0.1 mg PO Q4H PRN; Protocol PRN Reason: moderate anxiety Last Admin: 02/04/25 20:29 Dose: 0.1 mg Hydroxyzine HCl (Hydroxyzine Hcl 25 Mg Tablet) 25 mg PO Q6H PRN PRN Reason: mild anxiety Last Admin: 02/09/25 00:48 Dose: 25 mg Ibuprofen (Ibuprofen 600 Mg Tablet) 600 mg PO Q6H PRN PRN Reason: back pain Last Admin: 02/09/25 15:46 Dose: 600 mg Lidocaine (Lidocaine 4 % Patch Adh..Patch) 1 patch TRANSDERMA DAILY PRN; Protocol PRN Reason: lower back pain Last Admin: 02/09/25 09:26 Dose: 1 patch Lidocaine (Lidocaine 4 % Patch Adh..Patch) 1 patch TRANSDERMA BEDTIME CUCA; Protocol Last Admin: 02/09/25 20:29 Dose: 1 patch Loperamide HCl (Loperamide Hcl 2 Mg Capsule) 2 mg PO Q4H PRN PRN Reason: Diarrhea Magnesium Hydroxide (Milk Of Magnesia 30 Ml Oral.Susp) 30 ml PO DAILY PRN PRN Reason: Constipation Last Admin: 02/02/25 19:00 Dose: 30 ml Methadone HCl (Methadone Hcl 20 Mg/2 Ml Oral.Conc) 105 mg PO DAILY CUCA Last Admin: 02/10/25 07:41 Dose: 105 mg Nicotine (Nicotine 21 Mg Patch.Td24) 21 mg TRANSDERMA DAILY PRN PRN Reason: smoking cessation Last Admin: 02/09/25 09:00 Dose: 21 mg Nicotine Polacrilex (Nicotine Polacrilex 2 Mg Gum) 4 mg BUCCAL Q2H PRN PRN Reason: Nicotine Cravings Last Admin: 02/02/25 08:46 Dose: 4 mg Olanzapine (Olanzapine 5 Mg Tablet) 5 mg PO TID PRN PRN Reason: agitation Last Admin: 01/29/25 03:57 Dose: 5 mg Olanzapine (Olanzapine 2.5 Mg Tablet) 2.5 mg PO TID PRN PRN Reason: mild agitation Last Admin: 02/09/25 04:25 Dose: 2.5 mg Olanzapine (Olanzapine 10 Mg Tablet) 10 mg PO 1900 CUCA Last Admin: 02/09/25 18:58 Dose: 10 mg Pseudoephedrine HCl (Pseudoephedrine Hcl 30 Mg Tablet) 30 mg PO Q6H PRN PRN Reason: Congestion Last Admin: 02/01/25 19:01 Dose: 30 mg Sertraline HCl (Sertraline Hcl 50 Mg Tablet) 50 mg PO BEDTIME CUCA Trazodone HCl (Trazodone Hcl 50 Mg Tablet) 50 mg PO BEDTIME MRX1 PRN PRN Reason: Insomnia Last Admin: 02/10/25 01:05 Dose: 50 mg Allergies Allergies Allergy/AdvReac Type Severity Reaction Status Date / Time Penicillins (PENICILLINS) Allergy Unknown UNKNOWN Verified 01/25/25 19:26 Assessment & Plan Assessment & Plan (1) Depression: Status: Acute Code(s): F32.A - Depression, unspecified (2) Substance use disorder: Status: Acute Code(s): F19.90 - Other psychoactive substance use, unspecified, uncomplicated (3) Suicidal ideation: Status: Acute Code(s): R45.851 - Suicidal ideations (4) Homicidal thoughts: Status: Acute Code(s): R45.850 - Homicidal ideations Plan 44-year-old French-speaking male with history of substance use disorder [place] [facility], yesterday for suicide and homicidal ideation with intends to walk in front of a truck. On interview with the provider and patient's social media intern, patient states that the day he presented to the ED, he had suicide thoughts with plan to walk in front of a truck and thoughts of killing his partner of 20 years (mother of his 4 children), after she finally confirmed she had an affair with another man. Patient states that 6 months ago, he suspected his partner of having an affair with another man, but she has been denying.He also states that the relationship with his partner was fragile prior to the infidelity because his partner does not approve his drug use. He notes sometimes she would leave the house and returned the following day. They were never . However, the patient ended the relationship because of the suspected infidelity. He continues to live with his partner and their 3 children. They have a son who is older and lives out of state. Since the suspected infidelity of his partner, the has been experiencing intermittent suicide ideation, homicidal ideation, and feeling of hopelessness, worthlessness, anhedonia, and anger since the suspicion. He thought about leaving turning on the stove and gas in the house so that the entire house will burn with himself, his partner, and children inside. However, he continues to challenge those thoughts. He states that he would not burn his children to . He recalls feeling of hopelessness, helplessness, worthlessness, and anhedonia which started 8 months ago. He mentions that his mother 25 years ago but he did not cry because he was in good terms with his mother. However, following her , he did not care for life. Eventually, he met his partner and eventually had 4 children with her - that brought meaning to his life. He is not experiencing suicide or homicidal thoughts at this time. He states that he feels ?tranquil during this hospitalization. He called and spoke with the mother of his children this morning and apologized. He told her that he does not plan to return home even though he does not have a place to stay after his discharge. 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 He has had period of sobriety with the longest being 15 years while on Suboxone. He has been using 2-3 bundles of heroin daily for the past 6 months. Prior to that, he was sober for less than a month. He also reports occasional use of cocaine intranasally with last use a week ago. He smoked 2 puffs of cannabis for the first time, 4 days ago. He has been to multiple detox programs with last detox 1-2 years ago. He denies other illicit drug use. He is on prescribed methadone 110 mg daily. U tox positive for cocaine, opitates, fentanyl, and methdone. He drinks alcohol occasionally on holidays, but he drank 6-8 beers 6 days ago. He has been unemployed for over 5 years due to substance use disorder and he lied racing. He has no source of income. He has a current case for possessing and distributing drugs with a hearing scheduled on 02/15/2025. His goal for his hospitalization is to manages anger and depression. Patient is French-speaking only. In-person energy infrastructure engineer utilized. Formulation/Clinical reasoning: Depression: Patient may have been experiencing undiagnosed and untreated depression longer than the 8 months he stated due to multiple psychosocial stressors, including the of his mother 25 years ago which he did not mourn. Chronic heroin and cocaine use may have worsened his depression. His partner having an affair with another man may have worsened his symptoms further, leading to suicide and homicidal thoughts. His goal for this hospitalization is management of his anger and depression. Sertraline 25 mg daily ordered to target depression; advised to take as prescribed. Instructed on the risks, benefits, and potential adverse reactions of the medication. Continue current treatment regimen. Depression management and sobriety will be an ideal goal for long-term symptoms control and recovery. Upon discharge, he wants to be referred to a recovery program that manages dual diagnosis. Hospital Course: 01/28/25: Olanzapine 2.5 mg bid for mood mgt Depakote ER 500 mg HS for headache mgt and mood mgt 01/29 acknowledges he was having angry feelings wanting to kill his and then himself; says he is trying to get over it and that i'm working on it.. He says at this point, he no longer has any plans or intent to hurt anyone, that now they are just feelings...He said love for his daughters has helped him change. That said, he feels if he left today, he would hurt his ...He says im not normally like this... He agrees to increasing zoloft and zyprexa... -he would very much like to see his 16 yo --AH started last night (first time ever); they just mumble -talked about struggles with drug addiction 01/30 patient reports he is doing little better. No SI or HI any longer; talked to his in trying to work things out; trying to keep his anger and check 02/01 Increase Olanzapine to 10 mg bid Increase Depakote ER to 750 mg HS 02/03 Continue tx 02/04 Decrease Depakote to 250 mg HS. DC on 02/06 Topamax 25 mg bid (trial for mgt of chronic headache) CAT Brain 02/05: no changes 02/06/2025: No changes 02/08/2025: Decrease Olanzapine to 10 mg hs Plan Admit to M5. CV 15 minutes check. Increase Zoloft to 50mg Increase Zyprexa to 5mg BID Diagnostics as needed. Collateral contact. Continue remainder of regime. Encouraged full milieu. Discharge planning. Time Spent With Patient Time: Total time managing care of this patient today ____ minutes.
--- NOTE | 2025-02-10 09:49 | P.DS_ITS ---
DS: Providers Provider Date of Service: 02/10/25 Date of admission: 01/26/25 12:47 Date of discharge: 02/10/25 Primary care physician: Peace Harvey MD Admitting clinician: Hank Skelton Attending physician on admission: Jeremy Estevez Attending physician on discharge: Jeremy Estevez Discharging clinician: Cynthia Bal DS: Diagnosis Discharge Diagnosis (1) Depression: Status: Acute (2) Substance use disorder: Status: Acute (3) Suicidal ideation: Status: Acute (4) Homicidal thoughts: Status: Acute DS: Medications Discharge Medications Home Medications: Previous Rx's ?Medication ?Instructions ?Recorded acetaminophen 325 mg tablet 650 mg (2 x 325 mg) PO Q6H PRN 02/09/25 Headache/Pain, Scale 1-10 #0 tabs clonidine HCl 0.1 mg tablet 0.1 mg PO Q4H PRN moderate anxiety 02/09/25 #30 tabs hydroxyzine HCl 25 mg tablet 25 mg PO Q6H PRN mild anx iety #30 02/09/25 tabs ibuprofen 600 mg tablet 600 mg PO Q6H PRN back pain #0 tabs 02/09/25 lidocaine 4 % topical patch 1 patch transdermal BEDTIM E #30 ea 02/09/25 (Lidocaine Pain Relief) lidocaine 4 % topical patch 1 patch transdermal DAILY PRN 02/09/25 (Lidocaine Pain Relief) lower back pain #30 ea methadone 10 mg/mL oral 105 mg (10.5 mL) PO DAILY #0 mL 02/09/25 concentrate (Methadose) naloxone 4 mg/actuation nasal 4 mg intranasal Q2M PRN opioid 02/09/25 spray (Narcan) overdose #2 ea nicotine (polacrilex) 2 mg gum 4 mg buccal Q2H PRN Sanchez otine 02/09/25 Cravings #200 ea nicotine 21 mg/24 hr daily 21 mg transdermal DAILY PRN 02/09/25 transdermal patch smoking cessation #30 ea olanzapine 10 mg tablet 10 mg PO 1900 #30 tabs 02/09 sertraline 50 mg tablet 50 mg PO BEDTIME #30 tabs trazodone 50 mg tablet 50 mg PO BEDTIME MRX1 PRN In somnia 02/09/25 #60 tabs Mental Status Exam Mental Status Exam Patient Appearance: Appropriate Patient Orientation: Person, Place, Time and Situation Level of Consciousness: Alert Patient Behavior: Talkative and Good Eye Contact Mood Description: Constricted Affect Description: Constricted Patient Cognition Impaired: No Ability to Follow Directions: Good Speech Pattern: Spontaneous Speech Memory Description: Intact Thought Content: positive for Suicidal Ideation (denies) and positive for Homicidal Ideation (denies) Depressive Symptoms: Thoughts of /Suicide (denies) Judgement: Good Data Imaging Diagnostic Imaging Impressions Lumbar Spine X-Ray 02/07/25 13:58 IMPRESSION: 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 Electronically signed by: Tremaine Barboza MD 02/07/2025 02:47 PM [facility] DS: Summary Hospital Course Hospital Course: 44-year-old Citizen [place]-speaking male with history of substance use disorder presents to [facility] ED, via ambulance, yesterday for suicide and homicidal ideation with intends to walk in front of a truck. On interview with the provider and patient's social and political studies professor, patient states that the day he presented to the ED, he had suicide thoughts with plan to walk in front of a truck and thoughts of killing his partner of 20 years (mother of his 4 children), after she finally confirmed she had an affair with another man. Patient states that 6 months ago, he suspected his partner of having an affair with another man, but she has been denying.He also states that the relationship with his partner was fragile prior to the infidelity because his partner does not approve his drug use. He notes sometimes she would leave the house and returned the following day. They were never . However, the patient ended the relationship because of the suspected infidelity. He continues to live with his partner and their 3 children. They have a son who is older and lives out of state. Since the suspected infidelity of his partner, the has been experiencing intermittent suicide ideation, homicidal ideation, and feeling of hopelessness, worthlessness, anhedonia, and anger since the suspicion. He thought about leaving turning on the stove and gas in the house so that the entire house will burn with himself, his partner, and children inside. However, he continues to challenge those thoughts. He states that he would not burn his children to . He recalls feeling of hopelessness, helplessness, worthlessness, and anhedonia which started 8 months ago. He mentions that his mother 25 years ago but he did not cry because he was in good terms with his mother. However, following her , he did not care for life. Eventually, he met his partner and eventually had 4 children with her - that brought meaning to his life. He is not experiencing suicide or homicidal thoughts at this time. He states that he feels ?tranquil during this hospitalization. He called and spoke with the mother of his children this morning and apologized. He told her that he does not plan to return home even though he does not have a place to stay after his discharge. 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 He has had period of sobriety with the longest being 15 years while on Suboxone. He has been using 2-3 bundles of h eroin daily for the past 6 months. Prior to that, he was sober for less than a month. He also reports occasional use of cocaine intranasally with last use a week ago. He smoked 2 puffs of cannabis for the first time, 4 days ago. He has been to multiple detox programs with last detox 1-2 years ago. He denies other illicit drug use. He is on prescribed methadone 110 mg daily. U tox positive f or cocaine, opitates, fentanyl, and methdone. He drinks alcohol occasionally on holidays, but he drank 6-8 beers 6 days ago. He has been unemployed for over 5 years due to substance use disorder and he lied racing. He has no source of income. He has a current case for possessing and distributing drugs with a hearing scheduled on 02/15/2025. His goal for his hospitalization is to manages anger and depression. Patient is Citizen [place]-speaking only. In-person advertising sales assistant utilized. Hospital Course: Medications were evaluated and adjusted. Pt was offered full milieu to assist him in strengthening coping skills. Team applied to several programs for ongoing treatment which he still awaits acceptance. Pt worked on resolving HI toward , however, was provided with [place] duty to warn by phone on 02/10/25. responded that she was not concerned as pt had made these statements in the past and had never acted upon them. [place] Police were also informed of [place] duty to warn on 02/10/25 via phone on their recorded line. Pt, upon leaving, denied SI,HI,AH,VH. He was in agreement with the plan of care and will attend [facility] program while he continues his applications for ongoing addiction treatment. Status at Discharge Functional status at discharge: independent ambulation Overall status at discharge: patient is progressing back to baseline Time Spent with Patient Time attestation: Total time managing care of this patient today ____ minutes. Time spent: Less than 30 minutes Discharge Plan Discharge Anticipated Discharge Date/Time: 02/10/25 11:00 Patient Disposition: Xfer Other Discharge Diagnosis: Depression Polysubstance Use Disorder Referrals: [facility] [Other] - 1 Week Referral Note: Referral to [facility] for substance abuse treatment Patient should continue to follow-up on referral after discharge Patient will need to have [facility] Staff at program submit referral to maintain active status of referral in effort to continue to [facility]. [facility] [Other] - 02/16/25 12:00 pm Referral Note: Initial diagnostic evaluation for psychiatry and therapy services Appointment in person at [place] Please Arrive 15 minutes prior to appointment to complete paperwork. [facility] [Other] - 1 Week Referral Note: [facility] for substance [facility]Other[facility] - [facility] Week Referral Note: [facility] Referral for substance abuse treatment Patient placed on wait list. [facility] [Other] - 1 Week Referral Note: Patient referred to [facility] substance abuse treatment program [facility] [Other] - 1 Week Referral Note: Referral for substance abuse treatment Patient can continue to follow-up on referral after discharge Clinical and Support Options:[facility] [Other] - 1 Week Referral Note: [facility] Resources Peace Harvey MD [Primary Care Provider, Family Practice] Referral Note: Please follow up when needed Discharge Medications: New clonidine HCl 0.1 mg Tablet 0.1 mg PO Q4H PRN (Reason: moderate anxiety) Qty: 30 0RF Protocol: Hold for SBP< HOLD for SBP < : 90 acetaminophen 325 mg Tablet 650 mg PO Q6H PRN (Reason: Headache/Pain, Scale 1-10) Qty: 0 0RF lidocaine [Lidocaine Pain Relief] 4 % Adhesive Patch,Medicated 1 patch transdermal BEDTIME Qty: 30 0RF Protocol: Apply to: Apply to: back lidocaine [Lidocaine Pain Relief] 4 % Adhesive Patch,Medicated 1 patch transdermal DAILY PRN (Reason: lower back pain) Qty: 30 0RF Protocol: Apply to: Apply to: lower back trazodone 50 mg Tablet 50 mg PO BEDTIME MRX1 PRN (Reason: Insomnia) Qty: 60 0RF nicotine (polacrilex) 2 mg Gum 4 mg buccal Q2H PRN (Reason: Nicotine Cravings) Qty: 200 0RF olanzapine 10 mg Tablet 10 mg PO 1900 Qty: 30 0RF nicotine 21 mg/24 hr Patch 24 Hour 21 mg transdermal DAILY PRN (Reason: smoking cessation) Qty: 30 0RF hydroxyzine HCl 25 mg Tablet 25 mg PO Q6H PRN (Reason: mild anxiety) Qty: 30 0RF methadone [Methadose] 10 mg/mL Concentrate 105 mg PO DAILY Qty: 0 0RF Rx Instructions: Partial Fill upon patient request. ibuprofen 600 mg Tablet 600 mg PO Q6H PRN (Reason: back pain) Qty: 0 0RF sertraline 50 mg Tablet 50 mg PO BEDTIME Qty: 30 0RF naloxone [Narcan] 4 mg/actuation spray,non-aerosol 4 mg intranasal Q2M PRN (Reason: opioid overdose) Qty: 2 0RF Rx Instructions: spray 1 dose into ONE nostril; alternate nostrils w each dose until help arrives Discontinued methadone [Methadone Intensol] 10 mg/mL Concentrate 110 mg PO DAILY Discharge Orders: Discharge Order (Routine); Ordered 02/10/25 Ordered By: Cynthia Bal Diet: Advance to usual diet Activity on Discharge: As tolerated Stand Alone Forms: Patient Portal Discharge page, Community Support Print Language: Citizen [place] Care Plan Goals: Abstinence from Substances Mood and Behavioral Stabilization Health Concerns: Abstinence from Substances Mood and Behavioral Stabilization Plan of Treatment: Transition to Respite on 02/10/25 Attend scheduled appointments Take medications as directed Assessment: Alfredo[place] SI,HI,AH,VH Agrees with plan of care Discharge Date/Time: 02/10/25 19:06
[2025-02-10] MEDS: Lidocaine 4 % Patch ADH..PATCH 1 PATCH TRANSDERMA (10:26)
== END 2025-02-10 19:06 | disposition other institution (70) | DRG 754 ==
LOC: HO.ED 17:18 → HO.PM5 01-26 12:55
PROVIDERS: Admitting Provider Psychiatry & Neurology Psychiatry; Emergency Provider Emergency Medicine; PCP Family Medicine; Visit Provider Clinical Nurse Specialist Psychiatric/Mental Health, Adult
DX: F32.A Depression, unspecified (principal); R45.851 Suicidal ideations; R45.850 Homicidal ideations; F11.20 Opioid dependence, uncomplicated; F19.90 Other psychoactive substance use, unspecified, uncomplicated
CPT/HCPCS: 36415; 70450; 72110; 80053; 80061; 80307; 81003; 83036; 84443; 85025; 93005; 99285; S9485

== ENCOUNTER → 2025-01-25 19:41 | Outpatient (BNV) | payer MEDICAID, SELFPAY | PROVIDERS: Admitting Provider Psychiatry & Neurology Psychiatry; Emergency Provider Emergency Medicine; PCP Family Medicine; Visit Provider Internal Medicine | DX: R94.31 Abnormal electrocardiogram [ECG] [EKG] (principal); Z13.6 Encounter for screening for cardiovascular disorders | CPT/HCPCS: 93010 ==

== ENCOUNTER 2025-01-26 12:47 | Outpatient (BNV) | payer MEDICAID, SELFPAY | END 2025-02-07 13:58 | PROVIDERS: Admitting Provider Psychiatry & Neurology Psychiatry; Emergency Provider Emergency Medicine; PCP Family Medicine; Visit Provider Radiology Diagnostic Radiology | DX: M47.817 Spondylosis without myelopathy or radiculopathy, lumbosacral region (principal) | CPT/HCPCS: 72110 ==

== ENCOUNTER 2025-01-26 12:47 | Outpatient (BNV) | payer MEDICAID, SELFPAY | END 2025-02-05 00:30 | PROVIDERS: Admitting Provider Psychiatry & Neurology Psychiatry; Emergency Provider Emergency Medicine; PCP Family Medicine; Visit Provider Radiology Vascular & Interventional Radiology | DX: R51.9 Headache, unspecified (principal) | CPT/HCPCS: 70450 ==

== ENCOUNTER → 2025-01-26 12:47 | Outpatient (BNV) | payer MEDICAID, SELFPAY | PROVIDERS: Admitting Provider Psychiatry & Neurology Psychiatry; Emergency Provider Emergency Medicine; PCP Family Medicine; Visit Provider Nurse Practitioner Family | DX: F19.90 Other psychoactive substance use, unspecified, uncomplicated (principal) | CPT/HCPCS: 99221 ==

== ENCOUNTER → 2025-01-26 12:47 | Outpatient (BNV) | payer OTHER, SELFPAY | PROVIDERS: Admitting Provider Psychiatry & Neurology Psychiatry; Emergency Provider Emergency Medicine; PCP Family Medicine; Visit Provider Nurse Practitioner Family | DX: F32.A Depression, unspecified (principal); F19.90 Other psychoactive substance use, unspecified, uncomplicated; R45.851 Suicidal ideations; R45.850 Homicidal ideations | CPT/HCPCS: 99232 ==

== ENCOUNTER 2025-02-18 15:08 | Emergency (ER) | payer MEDICAID, SELFPAY ==
[2025-02-18 15:28] VITALS: BP 144/65; PULSE 97; RESP 18; TEMP 36.7; O2SAT 97; BMI 40.4
--- NOTE | 2025-02-18 15:46 | ED.PSYCH ---
HPI - Psych General Chief Complaint: Psychiatric Symptoms Stated Complaint: bp issue Time Seen by Provider: 02/18/25 15:46 Source: patient Mode of arrival: ambulatory Limitations: no limitations History of Present Illness HPI Narrative: Chief Complaint: ?I want to kill myself by standing in traffic and getting hit by a car.? History of Present Illness: Male patient presented to the emergency department stating he is suicidal and depressed. 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 He notes ?increasing life stressors? but did not elaborate on details. He also endorsed using cocaine earlier today after a period of abstinence (duration of prior abstinence not specified). Reports hallucinations and states he is hearing voices. Denies alcohol and denies HI and medical complaints. Related Data Previous Rx's ?Medication ?Instructions ?Recorded methadone 10 mg/mL oral 105 mg (10.5 mL) PO DAILY #0 mL 02/09/25 concentrate (Methadose) Allergies Allergy/AdvReac Type Severity Reaction Status Date / Time Penicillins (PENICILLINS) Allergy Unknown UNKNOWN Verified 02/18/25 15:34 Review of Systems Review of Systems: Yes all other systems are reviewed and are negative [facility] Past Medical History Attestation statement: The following information was validated with the patient. Source: old records reviewed and nursing notes reviewed Social History Social History Household Members: Family Housing: Apartment Housing Other:: pt reports being homeless after leaving Do you presently have visiting nurse or other home services: No Alcohol intake: current Alcohol intake frequency: holidays/special occasions only Patient Tobacco Use Status: Never used Tobacco Smoked in Last 30 Days: No Use of substances other than those prescribed or required for medical reasons: Yes Substance Use Type: Crack/Cocaine and Heroin Substance Use Frequency: Daily Last Used Substance: Hours (ago) Any prior treatment program specific to substance use: No Advance Directives: No Advance Directives Information Provided: No service: No Sexual orientation: Straight/Heterosexual Physical Exam Exam: Exam: Appearance: Alert.? Oriented X3.? No acute distress.? Head: Normocephalic, atraumatic, no step-offs or deformities Eyes: Pupils equal, round and reactive to light.? Neck: Normal inspection.? Neck supple.? CVS: No signs of cardiopulmonary distress Respiratory: No respiratory distress.? Abdomen: Soft and nontender.? Skin: Skin warm and dry.? Normal skin color.? Normal skin turgor.? Extremities: No lower extremity edema.? No calf ttp. 5/5 strength to bilateral upper and lower extremities Neuro: Oriented X 3.? No motor deficit.? No sensory deficit. CN 2-12 intact Vital Signs: Vital Signs: Last Vital Signs Temp 98.3 F 02/19/25 06:28 Pulse 63 02/19/25 06:28 Resp 14 02/19/25 06:28 BP 123/75 02/19/25 06:28 Pulse Ox 91 L 02/19/25 06:28 O2 Del Method Room Air 02/18/25 23:30 BMI result Body Mass Index 40.4 vss Course Reevaluation(s) Reevaluation #1: CBC with a normocytic anemia. Chemistry with no acute findings needing intervention. Urine negative. Urine toxicology positive for methadone fentanyl and cocaine. Ethanol negative. At this time patient to be placed into observation to allow more time to be evaluated by care team. Time: 16:42 Reevaluation #2: Time: 05:21 Date: 02/19/25 Provider: Blayne Tamayo MD Patient in physician observation for psychiatric evaluation and substance use disorder.? patient had an elevated blood pressure treated with clonidine 0.1 mg orally and complained of back pain and received Tylenol 650 mg orally overnight. No current complaints. VS stable.? patient was evaluated by CARE team , placed on a Section 12 and is in in-patient bed search for dual diagnosis program. CBC and CMP were unremarkable except for an elevated glucose of 179. Will continue to monitor. urinalysis positive for glucose . U tox was positive for methadone, fentanyl and cocaine. Ethanol was below detectable limits. We will continue to monitor. Time: 09:12 Date: 02/19/25 Provider: Blayne Tamayo MD Physician observation ended at 09:12 hours. The patient was accepted at [facility] for further treatment of his depression and polysubstance use disorder. Patient will be transferred on a section 12 by ambulance. Medications Administered Generic Name Dose Route Start Last Admin Trade Name Freq PRN Reason Stop Dose Admin Methadone HCl 105 mg 02/19/25 09:00 02/19/25 09:08 Methadone Hcl 20 Mg/2 Ml Oral.Conc PO 105 mg DAILY CUCA Administration Discontinued Medications Generic Name Dose Route Start Last Admin Trade Name Beck PRN Reason Stop Dose Admin Acetaminophen 650 mg 02/18/25 23:48 02/18/25 23:59 Acetaminophen 325 Mg Tablet PO 02/18/25 23:49 650 mg ONCE ONE Administration Clonidine HCl 0.1 mg 02/18/25 23:37 02/18/25 23:44 Clonidine Hcl 0.1 Mg Tablet PO 02/18/25 23:38 0.1 mg ONCE ONE Administration Protocol Medical Decision Making Medical Decision Making [facility] Narrative: 1616 Male patient presented to the emergency department stating he is suicidal and depressed. 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 Exam notable for well-appearing male, intact neurologic exam, clear lungs, and normal cardiac findings. Differential diagnosis includes: major depressive disorder, anxiety disorder, substance-induced psychosis, primary psychotic disorder (e.g., schizophrenia). Plan is for medical clearance; patient will then be seen by the care team for further psychiatric evaluation and management. Problem #2: Recent cocaine use (relapse)\ Patient admits to cocaine use earlier today after a period of abstinence. No acute intoxication or withdrawal symptoms noted on exam. Differential diagnosis includes: cocaine use disorder (relapse), substance-induced mood disorder, primary mood disorder. Patient expresses interest in detox from cocaine; this will be addressed by the care team after medical clearance. 02/19/2025, 06:30 I was informed by the patient's nurse that patient's oxygen saturation dropped to the 80s when he is asleep but once he wakes up, the oxygen returns to the 90s. Patient likely has undiagnosed sleep apnea. Patient may follow-up with his PCP once discharged. If patient gets admitted to the hospital, patient will likely need couple of L of oxygen at bedtime Differential Diagnosis Differential Diagnoses: The differential diagnosis associated with the presentation includes Major depressive disorder Anxiety disorder Substance-induced psychosis Primary psychotic disorder Admission/Observation Consideration of admission/observation: Escalation of care including admission/observation considered (possible ) Lab Data [facility] Lab Attestation statement: I reviewed the patient's lab results. 02/18/25 16:03 02/18/25 16:03 Labs: Lab Results 02/18/25 02/18/25 Range/Units 15:57 16:03 WBC 9.3 (4.8-10.8) X10*3/uL RBC 4.24 L (4.60-5.80) X10*6/uL Hgb 13.2 L (14.0-18.0) g/dl Hct 39.7 L (42.0-52.0) % MCV 93.6 (80.0-98.0) fL MCH 31.1 (27.0-33.0) pg MCHC 33.2 (31.0-36.0) g/dl RDW 11.6 (11.0-16.0) % Plt Count 265 (160-400) X10*3/uL MPV 9.6 (9.4-12.4) fL Immature Gran % (Auto) 0.4 (0.0-0.4) % Neut % (Auto) 60.7 (45-73) % Lymph % (Auto) 30.4 (20-40) % Young % (Auto) 7.6 (2-11) % Eos % (Auto) 0.6 (0-4) % Baso % (Auto) 0.3 (0-2) % Lymph # (Auto) 2.8 (1.2-4.9) X10*3/uL Young # (Auto) 0.7 (0.1-1.2) X10*3/uL Eos # (Auto) 0.1 (0.0-0.4) X10*3/uL Baso # (Auto) 0.0 (0.0-0.2) X10*3/uL Abs Immat Gran (auto) 0.04 H (0.00-0.03) X10*3/uL Absolute Neuts (auto) 5.6 (2.0-8.3) x10*3/uL Absolute Nucleated RBC 0.000 (0.0-0.012) X10*3/uL Nucleated RBC % (auto) 0.0 (0.0-0.2) /100WBC Sodium 140 (135-145) mmol/L Potassium 3.8 (3.3-5.1) mmol/L Chloride 103 (96-108) mmol/L Carbon Dioxide 28 (22-29) mmol/L Anion Gap 13 (12-20) BUN 11 (9-16) mg/dL Creatinine 0.69 (0.5-1.4) mg/dL Estim Creat Clear Calc 139.2 Estimated GFR > 60 Random Glucose 179 H (60-115) mg/dL Calcium 9.3 (8.4-10.2) mg/dL Magnesium 1.8 (1.6-2.6) mg/dL Total Bilirubin 0.2 (0.0-1.0) mg/dL AST 29 (5-37) U/L ALT 19 (0-40) U/L Alkaline Phosphatase 102 (39-117) U/L Total Protein 7.4 (6.5-8.0) g/dL Albumin 4.8 (3.5-5.0) g/dL Urine Color Yellow Urine Appearance Clear Urine pH 5.5 (5.0-9.0) Ur Specific [place] 1.025 (1.005-1.025) Urine Protein Negative (Neg-Trace) mg/dL Urine Glucose (UA) 500 H (Negative) mg/dL Urine Ketones Negative (Negative) mg/dL Urine Blood Negative (Negative) Urine Nitrite Negative (Negative) Ur Leukocyte Esterase Negative (Negative) Urine Opiates Screen Not Detected (Not Detect) Ur Buprenorphine Scrn Not Detected (Not Detect) ng/mL Ur Oxycodone Screen Not Detected (Not Detect) ng/mL Urine Methadone Screen Positive H (Not Detect) ng/mL Urine Fentanyl Screen POSITIVE H (Not Detect) Ur Barbiturates Screen Not Detected (Not Detect) Ur Phencyclidine Scrn Not Detected (Not Detect) Ur Amphetamines Screen Not Detected (Not Detect) U Benzodiazepines Scrn Not Detected (Not Detect) Urine Cocaine Screen POSITIVE H (Not Detect) U Marijuana (THC) Screen Not Detected (Not Detect) Ethyl Alcohol < 10 mg/dL External Record Review External record reviewed: Inpatient record, Office record, Outpatient record, Prior outpatient labs, Prior outpatient radiology, Primary care record and Outside ED record Chronic Conditions Patient?s care impacted by: Other (see hpi ) Discharge Plan Discharge Clinical Impression: Depression, Polysubstance use disorder Patient Disposition: Xfer Psychiatric Hosp Transfer Details: Rosalie Enamorado Prescriptions: No Action methadone [Methadose] 10 mg/mL Concentrate 105 mg PO DAILY Qty: 0 0RF Rx Instructions: Partial Fill upon patient request. Interventions: [place]-Suicide Risk Severity Scale Last Done: 02/18/25 15:59 Print Language: Danish
[2025-02-18 15:59] VITALS: RESP 14
--- NOTE | 2025-02-18 16:04 | PC.NURSE ---
Erickson comes to the ED today reporting suicidal ideation without a specific plan at this time. he reports being anxious. Pt is primarily kenyan speaking but does understand some [place]. Pt is calm and cooperative at this time, eating and watching TV. aware of plan of care for medical clearance and care team bharath
--- OUTSIDE RECORDS SUMMARY | 2025-02-18 16:13 | XMS_ITS | Clinical Summary ---
Author Organization [employer] Address [address] [facility] [address] [place] [address] Care Team Providers Care Associate Professor Of Medicine Name Role Phone Peace Harvey MD Primary Care Provider [phone]- [phone] Sobeida Nicholson OD Unavailable [phone] Allergies Active Allergy Reactions Criticality Noted [...] Once per day. 30 tablet 11 4 Active ibuprofen 800 MG tablet Take 1 [...] risk The 10-year ASCVD risk score (Rosy NORMAN, et al., 2019) is: 5.9% Values used to calculate the score: Age: 43 years Sex: Male Is Non- : No Diabetic: No Tobacco smoker: Yes Systolic Blood Pressure: 132 mmHg Is BP treated: Yes HDL Cholesterol: 36 mg/dL Total Cholesterol: 152 mg/dL Lab Results Component Value Date [facility] 01/20/2024 -Atherosclerotic Cardiovascular Disease (ASCVD) Risk Calculator [...] physical exam due after 01/04/25 -referral to [facility] sent 01/05/24 -dental home encouraged 01/05/24 -health care proxy filed 01/05/24 Assessment & Plan (01/05/2024 7:54 PM EDT): -next physical exam due after 01/04/25 -referral to [facility] sent 01/05/24 -dental home encouraged 01/05/24 [...] Overview (11/17/2024): Lab Results Component Value Date [id number] 25.5 (L) 01/20/2024 Assessment & Plan (01/05/2024 7:56 PM EDT): No results found for: [id number] Mild intermittent asthma 12/30/2016 Overview (01/05/2024): Well-controlled [...] recurrent major depressive disorder, without psychotic features ([facility]) 01/02/2012 Overview (01/28/2025): Denies suicidial or homacidial ideation. Therapist and psychiatrist offered. -seen by [facility] 01/05/24, pt prefers to self refer to [facility] -referral to acetone recovery worker placed 01/05/24 -seen in ER 01/27/25 for suicidal ideation Assessment & Plan (01/05/2024 7:55 PM EDT): Denies suicidial or homacidial ideation. Therapist and psychiatrist offered. -seen by [facility] 01/05/24, pt prefers to self refer to [facility] -referral to acetone recovery worker placed 01/05/24 Backache 01/02/2012 Overview (01/17/2023): Chornic since age 13. No focal motor neruo deficits. Per pt, pain unchanged. X ray 11/2013 revealed mild anterolisthesis of L5 on S1. Alignment was otherwise anatomic. No additional significant degenerative change. He was previously followed by [facility] for injections, last seen [address] Iyer 06/2014. He did not finish [...] degenerative change. He was previously followed by [facility] for injections, last seen [address] Iyer 06/2014. He did not finish [...] not abstinent of illicit drugs. -referral for acetone recovery worker placed by [place] 01/05/24 Assessment & Plan (01/05/2024 7:55 PM EDT): Long-term methadone maintenance, but not abstinent of illicit drugs. -referral for acetone recovery worker placed by [facility] 01/05/24 Tobacco dependence syndrome 01/02/2012 Overview (01/05/2024): -Cigg/day: 3 cigarettes/week -Age started: 14 -Total years smokin -Pack year history: Encouraged smoking cessation resources such as pharmacomtherapy, [facility] smoking cessation group, and [facility] pharmacy smoking cessation clinic Discussed USPSTF recommends [...] as pharmacomtherapy, [facility] smoking cessation group, and [facility] pharmacy smoking cessation clinic Discussed USPSTF recommends [...] Encounters Date Type Department Care Team Description 01/26/2025 Orders Only [facility] External Provider, [facility] from Last 3 Months Immunizations Immunization Administration [...] 02/02/2024 01/05/2024 Depression Monitoring 07/05/2024 01/05/2024, 024 COVID-19 Vaccine ( season) 2024 01/05/2024, 03/28/2022, 10/26/2021, Additional history exists Influenza Vaccine (#1) 2024 , 12/27/2020, 06/07/2015, Additional history exists SDOH Screening 01/04/2025 01/05/2024 Tobacco Screening 04/21/2025 04/21/2024 Lipid Panel 01/19/2029 01/20/2024, 02/28/2020 Zoster Vaccines (1 of 2) 2029 RSV Patients and Patients Aged 60 years or older (1 - 1-dose 75+ series) 2054 Hepatitis A Vaccines Aged Out 01/05/2024 No [...] Procedure Name Priority Date/Time Associated Diagnosis Comments XR LUMBAR SPINE COMPLETE 4+ VIEWS Routine 02/07/2025 1:[address] HEAD WO CONTRAST Routine 02/05/2025 1 2:13 PM EST CBC WITH AUTO DIFFERENTIAL Routine 01/25/2025 6:16 [...] Recently Relevant to Health Maintenance Results * XR Lumbar Spine Complete 4+ Views (02/07/2025 1:58 PM EST) Anatomical Region Laterality Modality Spine, L-spine Radiographic Bere ging 02/07/2025 1:58 PM EST Narrative 02/07/2025 2:50 PM EST [place] [address] XRay Report Signed Patient: Erickson Holbrook MR#: [id number] : 1980 Acct:[id number] Age/Sex: 44 / M ADM Date: 01/26/25 Loc: [facility] 508-[address]: Cynthia Bal APRN Ordering Physician: Cynthia Bal APRN Date of Service: 02/07/25 Procedure(s): XR lumbar spine 4V min Accession Number(s): [id number] cc: Cynthia Bal APRN; Peace Harvey MD Reason for Exam: pain increase EXAMINATION: XR LUMBOSACRAL SPINE WITH OBLIQUES CLINICAL INFORMATION: pain increase COMPARISON: May 25, 2014 x-rays not available on PACS. TECHNIQUE: AP oblique and lateral views. FINDINGS: Grade 1 anterolisthesis at L5-S1 secondary to spondylolysis pars interarticulares. Vacuum phenomenon at L5-S1. Endplate sclerosis at L5-S1. Spina bifida occulta S1. No lytic or blastic lesions. Abundant stool without intestinal obstruction pattern, large intestine. 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 Electronically signed by: Tremaine Barboza MD 02/07/2025 02:47 PM [facility] Dictated By: Tremaine Gibbs MD Signed By: <Electronically signed by Tremaine Judd MD in OV> 02/07/25 1447 DD/ 1358 TD/TT: 02/07/25 1405 Ocular Care Technician: Procedure Note Donotuseinterpreter, Image - 02/07/2025 [place] [address] XRay Report Signed Patient: Erickson Holbrook LMR#: [id number] : 1980Acct:[id number] Age/Sex: 44 / MADM Date: 01/26/25 Loc: [facility] 508-[address]: Cynthia Bal APRN Ordering Physician: Cynthia Bal APRN Date of Service: 02/07/25 Procedure(s): XR lumbar spine 4V min Accession Number(s): [id number] cc: Cynthia Bal APRN; Peace Harvey MD Reason for Exam: pain increase EXAMINATION: XR LUMBOSACRAL SPINE WITH OBLIQUES CLINICAL INFORMATION: pain increase COMPARISON: May 25, 2014 x-rays not available on PACS. TECHNIQUE: AP oblique and lateral views. FINDINGS: Grade 1 anterolisthesis at L5-S1 secondary to spondylolysis pars interarticulares. Vacuum phenomenon at L5-S1. Endplate sclerosis at L5-S1. Spina bifida occulta S1. No lytic or blastic lesions. Abundant stool without intestinal obstruction pattern, large intestine. 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 Electronically signed by: Tremaine Barboza MD 02/07/2025 02:47 PM EST RP Dictated By: Tremaine Gibbs MD Signed By: <Electronically signed by Tremaine Judd MDin OV> 02/07/25 1447 DD/ 1358 TD/TT: 02/07/25 1405 Ocular Care Technician: [facility] External Provider IMG XR PROCEDURES Edited Result - Final * CT Head w/o Contrast (02/05/2025 12:13 PM EST) Anatomical Region Laterality Modality Head, Neck Computed Tomogra phy 02/05/2025 12:1 3 PM EST Narrative 02/05/2025 12:16 PM EST [place] [address] CT Scan Report Signed Patient: Erickson Holbrook MR#: [id number] : 1980 Acct:[id number] Age/Sex: 44 / M ADM Date: 01/26/25 Loc: .[address] 509-[address]: Cynthia Bal APRN Ordering Physician: Cynthia Bal APRN Date of Service: 02/05/25 Procedure(s): CT head/brain wo IV con Accession Number(s): [id number] cc: Cynthia Bal APRN; Peace Harvey MD Report Number: [id number]: Total DLP = 708.00 mGy-cm Reason for Exam: chronic headaches, TBI hx *called floor 1900, floor will call back* CLINICAL HISTORY: chronic headaches, TBI hx *called floor 1900, floor will call back* CT head without contrast Comparison: None provided Findings: No intra-axial mass, midline shift, hydrocephalus, or acute hemorrhage. No significant atrophy-like change or white matter disease. There is no significant sinus or mastoid fluid. The orbits are within normal limits. No skull fracture. IMPRESSION: 1. No acute intracranial findings. This document has been electronically signed by: Johann Cui MD on 02/05/2025 12:13:03 Dictated By: Johann Cui MD Signed By: <Electronically signed by Johann Cui MD in OV> 02/05/25 1214 DD/ 1213 TD/TT: 02/05/25 1213 Ocular Care Technician: Procedure Note Donotuseinterpreter, Image - 02/05/[address] [place] [address] [address] Scan Report Signed Patient: Erickson Holbrook LMR#: [id number] : 1980Acct:[id number] Age/Sex: 44 / MADM Date: 01/26/25 Loc: [facility] 509-[address]: Cynthia Bal APRN Ordering Physician: Cynthia Bal APRN Date of Service: 02/05/25 Procedure(s): CT head/brain wo IV con Accession Number(s): [id number] cc: Cynthia Bal APRN; Peace Harvey MD Report Number: [id number]: Total DLP = 708.00 mGy-cm Reason for Exam: chronic headaches, TBI hx *called floor 1900, floor willcall back* CLINICAL HISTORY: chronic headaches, TBI hx *called floor 1900, floor willcall back* CT head without contrast Comparison: None provided Findings: No intra-axial mass, midline shift, hydrocephalus, or acute hemorrhage. No significant atrophy-like change or white matter disease. There is no significant sinus or mastoid fluid. The orbits are within normal limits. No skull fracture. IMPRESSION: 1. No acute intracranial findings. This document has been electronically signed by: Johann Cui MD on 02/05/2025 12:13:03 Dictated By: Johann Cui MD Signed By: <Electronically signed by Johann Cui MD in OV> 02/05/25 1214 DD/ 1213 TD/TT: 02/05/25 1213 Ocular Care Technician: [facility] External Provider IMG CT PROCEDURES Final Result * Ethanol (01/25/2025 6:16 PM EDT) ETHANOL (MG/DL) IN SER/PLAS <10 mg/dL [facility] Comment:Serum/plasma ethanol results are to be used formedical/treatment purposes only. 01/25/2025 6:16 PM EDT 01/25/2025 6:19 PM EDT Generic External Data Provider LAB BLOOD ORDERAB LES Final Result [facility] [address] [place] [phone] * (ABNORMAL) CBC auto differential (01/25/2025 6:16 PM EDT) White Blood Count 8.7 4.8 - 10.8 X10*3/uL [facility] Red Blood Count 4.26(L) 4.60 - 5.80 X10*6/uL [facility] Hemoglobin 13.2(L) 14.0 - 18.0 g/dl [facility] Hematocrit 40.4(L) 42.0 - 52.0 % [facility] Mean Corpuscular Volume 94.8 80.0 - 98.0 fL [facility] Mean Corpuscular Hemoglobin 31.0 27.0 - 33.0 pg [facility] Mean Corpuscular HGB Conc 32.7 31.0 - 36.0 g/dl [facility] Red Cell Distribution Width 11.7 11.0 - 16.0 % [facility] Platelet Count 263 160 - 400 X10*3/uL [facility] Mean Platelet Volume 9.7 9.4 - 12.4 fL [facility] Neutrophils Percent Auto 39.6(L) 45 - 73 % [facility] Imm Gran Pct Auto 0.7(H) 0.0 - 0.4 % [facility] Lymphocytes Percent Auto 52.5(H) 20 - 40 % [facility] Monocytes Percent Auto 5.0 2 - 11 % [facility] Eosinophils Percent Auto 1.7 0 - 4 % [facility] Basophils Percent Auto 0.5 0 - 2 % [facility] NRBC Pct Auto 0.0 0.0 - 0.2 /100WBC [facility] Neutrophils Absolute Auto 3.5 2.0 - 8.3 x10*3/uL [facility] Imm Gran Abs Auto 0.06(H) 0.00 - 0.03 X10*3/uL [facility] Lymphocytes Absolute Auto 4.6 1.2 - 4.9 X10*3/uL [facility] Monocytes Absolute Auto 0.4 0.1 - 1.2 X10*3/uL [facility] Eosinophils Absolute Auto 0.2 0.0 - 0.4 X10*3/uL [facility] Basophils Absolute Auto 0.0 0.0 - 0.2 X10*3/uL [facility] NRBC Abs Auto 0.000 0.0 - 0.012 X10*3/uL [facility] 01/25/2025 6:16 PM EDT 01/25/2025 6:19 PM EDT us Generic External Data Provider LAB BLOOD ORDERAB LES Final Result [facility] [address] [place], [place] [phone] * (ABNORMAL) Comprehensive Metabolic Panel (01/25/2025 6:16 PM EDT) Sodium 140 135 - 145 mmol/L [facility] Potassium 3.8 3.3 - 5.1 mmol/L [facility] Chloride 106 96 - 108 mmol/L [facility] Carbon Dioxide 28 22 - 29 mmol/L [facility] Anion Gap 10(L) 12 - 20 [facility] Urea Nitrogen (BUN) 11 9 - 16 mg/dL [facility] Creatinine, Serum 0.72 0.5 - 1.4 mg/dL [facility] Creatinine Clr Calc Pharmacy 135.2 [facility] Comment:eGFR (calculated fro m the MDRD study equation) and eCrCl(calculated from the Cockcroft-Gault equation) are based ondifferent parameters and may not yield comparable results.If eCrCl result is absurd, please check patient'sheight/weight. Estimated Glomerular Filt Rate >60 [facility] Comment:Chronic Kidney Disea se: Estimated GFR < 60 mL/min/1.47l2Cohttf Kidney Disease: Estimated GFR < 15 mL/min/1.73m2 Glucose 85 60 - 115 mg/dL [facility] Calcium 8.9 8.4 - 10.2 mg/dL [facility] Bilirubin, Total 0.2 0.0 - 1.0 mg/dL [facility] Aspartate Amino Transferase 34 5 - 37 U/L [facility] Alanine Aminotransferase 13 0 - 40 U/L [facility] Total Protein 6.7 6.5 - 8.0 g/dL [facility] Albumin Level 4.4 3.5 - 5.0 g/dL [facility] Alkaline Phosphatase 77 39 - 117 U/L [facility] 01/25/2025 6:16 PM EDT 01/25/2025 6:19 PM EDT us Generic External Data Provider LAB BLOOD ORDERAB LES Final Result [facility] [address] [place], [place] [phone] * (ABNORMAL) Drug Monitoring, Panel 1, Screen, Urine (01/25/2025 5:26 PM EDT) Opiate Screen Urine POSITIVE(A) Not Detect [facility] Comment:Opiate cut-off is 30 0 ng/mL.Positive results are unconfirmed and should not be used fornon-medical purposes. Barbiturates, Urine Not Detected Not Detect [facility] Comment:Barbiturate cut-off is 200 ng/mL.Positive results are unconfirmed and should not be used fornon-medical purposes. Phencyclidine Screen Urine Not Detected Not Detect [facility] Comment:Phencyclidine cut-of f is 25 ng/mL.Positive results are unconfirmed and should not be used fornon-medical purposes. Amphetamine Screen Urine Not Detected Not Detect [facility] Comment:Amphetamine cut-off is 1000 ng/mL.Positive results are unconfirmed and should not be used fornon-medical purposes. Benzodiazepines Screen Urine Not Detected Not Detect [facility] Comment:Benzodiazepine cut-o ff is 200 ng/mL.Positive results are unconfirmed and should not be used fornon-medical purposes. Cocaine Screen Urine POSITIVE(A) Not Detect [facility] Comment:Cocaine cut-off is 3 00 ng/mL.Positive results are unconfirmed and should not be used fornon-medical purposes. Cannabinoid Screen Urine Not Detected Not Detect [facility] Comment:Cannabinoid cut-off is 50 ng/mL.Positive results are unconfirmed and should not be used fornon-medical purposes. Methadone Screen, Urine Positive(A) Not Detect ng/mL [facility] Comment:Methadone cut-off is 300 ng/mL.Positive results are unconfirmed and should not be used fornon-medical purposes. FENTANYL URINE POSITIVE(A) Not Detect [facility] Comment:Fentanyl cut-off is 1 ng/mL.Positive results are unconfirmed and should not be used fornon-medical purposes. Oxycodone Urine Screen Not Detected Not Detect ng/mL [facility] Comment:Oxycodone cut-off is 100 ng/mL.Positive results are unconfirmed and should not be used fornon-medical purposes. Buprenorphine Screen Not Detected Not Detect ng/mL [facility] Comment:Buprenorphine cut-of f is 5 ng/mL.Positive results are unconfirmed and should not be used fornon-medical purposes. 01/25/2025 5:26 PM EDT 01/25/2025 5:30 PM EDT us Generic External Data Provider LAB URINE ORDERAB LES Final Result Performing Organization Address [facility] Co de Phone Number [facility] [address] [place] [phone] * Urinalysis w/reflex microscopic (01/25/2025 5:26 PM EDT) Color Urine Yellow [facility] Appearance Urine Clear [facility] PH 6.0 5.0 - 9.0 [facility] Glucose Urine UA Negative Negative mg/dL [facility] Urine Blood Negative Negative [facility] Specific [place] - Urine 1.020 1.005 - 1.025 [facility] Urine Protein Negative Neg-Trace mg/dL [facility] Urine Ketones Negative Negative mg/dL [facility] Nitrite Urine Negative Negative [facility] Leukocyte Esterase Urine Negative Negative [facility] 01/25/2025 5:26 PM EDT 01/25/2025 5:30 PM EDT Narrative [facility] - 01/25/2025 5:42 PM EDT [id number], Clean Catch us Generic External Data Provider LAB URINE ORDERAB LES Final Result Performing Organization Address [facility] de Phone Number [facility] [address] [place] [phone] * Hepatitis C Antibody with Reflex to HCV, RNA, Quantitative, Real-Time PCR (01/20/2024 12:05 PM EDT) Hepatitis C Antibody Nonreactive Nonreactive [facility] Comment:Antibodies to HCV no t detected; does not exclude early acuteHCV infection. Blood Venous blood specimen / Unknown 01/20/2024 12:05 PM EDT 01/20/2024 1:10 PM EDT us Peace Harvey MD LAB BLOOD ORDERABLES Final Result Performing Organization Address City/[facility]/ZIP Co de Phone Number [facility] [address] [place] [phone] * HIV-1/2 Antigen and Antibodies, Fourth Generation, with Reflexes (01/20/2024 12:05 PM EDT) HIV AB/AG Nonreactive Nonreactive [facility] Comment:HIV-1 p24 Ag and/or HIV-1/HIV-2 Ab not detected.A test result that is nonreactive does not exclude thepossibility of exposure to or infection with HIV-1 and/orHIV-2. Nonreactive results in this assay for individualswith prior exposure to HIV-1 and/or HIV-2 may be due toantigen and antibody levels that are below the limit ofdetection of this assay.The [employer] HIV Ag/Ab Combo assay result andsupplemental assay results should be interpreted inconjunction with the patient's clinical presentation,history and other laboratory results. If the results areinconsistent with clinical evidence, additional testing issuggested to confirm the result. Blood Venous blood specimen / Unknown 01/20/2024 12:05 PM EDT 01/20/2024 1:10 PM EDT us Peace Harvey MD LAB BLOOD ORDERABLES Final Result Performing Organization Address [facility]/ZIP Co de Phone Number [facility] [address] [place] [phone] * (ABNORMAL) Lipid Panel, Standard (01/20/2024 12:05 PM EDT) Triglycerides 431(H) <150 mg/dL [facility] Comment:Desirable Triglyceri de: less than 150 mg/dLBorderline High Triglyceride 150-199 mg/dLHigh Triglyceride: 200-499 mg/dLVery High Triglyceride: greater than or equal to 5OO mg/dL Cholesterol 152 <200 mg/dL [facility] Comment:Desirable Cholestero l: less than 200 mg/dLBorderline High Cholesterol: 200-239 mg/dLHigh Cholesterol: greater than 239 mg/dL LDL Cholesterol Calculated TNP <100 mg/dL [facility] Comment:Unable to calculate the LDL. The formula of Friedwald,Villarreal, and Ron is only valid if the triglycerides areless than 400 mg/dl. HDL Cholesterol 36(L) >40 mg/dL [facility] Comment:Desirable HDL: great er than 40 mg/dL Note: This HDL assay may give artificially low results in patients with liver disease. 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
[2025-02-18 16:17] LABS: MANUAL DIFF FLAG NO
[2025-02-18 16:20] LABS: Hematocrit 39.7 % (42.0-52.0); Hemoglobin 13.2 g/dl (14.0-18.0); Imm Gran Abs Auto 0.04 X10*3/uL (0.00-0.03); Imm Gran Pct Auto 0.4 % (0.0-0.4); Lymphocytes Absolute Auto 2.8 X10*3/uL (1.2-4.9); Mean Corpuscular HGB Conc 33.2 g/dl (31.0-36.0); Mean Corpuscular Hemoglobin 31.1 pg (27.0-33.0); Mean Corpuscular Volume 93.6 fL (80.0-98.0); NRBC Abs Auto 0.000 X10*3/uL (0.0-0.012); NRBC Pct Auto 0.0 /100WBC (0.0-0.2); Platelet Count 265 X10*3/uL (160-400); Red Blood Count 4.24 X10*6/uL (4.60-5.80); White Blood Count 9.3 X10*3/uL (4.8-10.8)
[2025-02-18 16:21] LABS: Appearance Urine Clear; Glucose Urine UA 500 mg/dL (Negative); PH 5.5 (5.0-9.0); Specific Gravity - Urine 1.025 (1.005-1.025)
[2025-02-18 16:31] LABS: Cannabinoid Screen Urine Not Detected (Not Detect)
[2025-02-18 16:37] LABS: Alanine Aminotransferase 19 U/L (0-40); Albumin Level 4.8 g/dL (3.5-5.0); Alkaline Phosphatase 102 U/L (39-117); Anion Gap 13 (12-20); Aspartate Amino Transferase 29 U/L (5-37); Blood Urea Nitrogen 11 mg/dL (9-16); Calcium 9.3 mg/dL (8.4-10.2); Carbon Dioxide 28 mmol/L (22-29); Chloride 103 mmol/L (96-108); Creatinine Clr Calc Pharmacy 139.2; Estimated Glomerular Filt Rate > 60; Magnesium 1.8 mg/dL (1.6-2.6); Potassium 3.8 mmol/L (3.3-5.1); Sodium 140 mmol/L (135-145); Total Protein 7.4 g/dL (6.5-8.0)
--- NOTE | 2025-02-18 17:43 | PC.NURSE ---
Attempted to call [facility] to verify methadone, no answer
--- NOTE | 2025-02-18 23:00 | PC.NURSE ---
Assumed care at 1845. Patient presents as calm and cooperative. Spoken to in preferred language, Malaysian. Endorses passive +SI, no current plan/intent. Denies HI/AVH. Agreeable to alert staff if feeling unsafe. Currently kneeling on floor, laying body on bed while asleep. When encouraged to get in bed and rest, patient states I'm not I'm praying. 15 minute safety checks ongoing. Plan of care ongoing.
[2025-02-18 23:30] VITALS: BP 183/95; PULSE 89; RESP 18; TEMP 36.6; O2SAT 98
[2025-02-18 23:44] VITALS: BP 183/95
[2025-02-19 00:48] VITALS: BP 150/75; PULSE 67
--- NOTE | 2025-02-19 01:35 | PC.NURSE ---
Late Entry for 23:44 - Patient BP 183/95 [place] 89. MD Haas made aware, x1 order for 0.1 Clonidine obtained/administer. Will reassess BP for effectiveness. Late Entry for 23:59 - Patient c/o 10/10 back pain, requesting something for pain. MD Haas made aware, VORB for 650mg Tylenol received/administered. Given hot pack for comfort. Frequently encouraged to lay in bed instead of sleeping sitting up d/t risk of falling. Will continue to monitor for safety.
[2025-02-19 06:28] VITALS: BP 123/75; PULSE 63; RESP 14; TEMP 36.8; O2SAT 91
--- NOTE | 2025-02-19 07:53 | MHC.CARE ---
Pt accepted to [address], Dr. Kong. Next available transport.
--- NOTE | 2025-02-19 09:05 | HE.PHANOTE ---
Re Methadone Received verification from nursing, pt gets 105mg from [facility] in [place]. Last dose was 02/15 and were given take home bottles. We had the bottles in our safe to verify.
[2025-02-19] MEDS: methADONE HCl 20 MG/2 ML ORAL.CONC 105 MG PO (09:08)
[2025-02-19 09:29] VITALS: BP 123/75; PULSE 63; RESP 14; TEMP 36.8; O2SAT 91
== END 2025-02-19 09:30 ==
PROVIDERS: Physician Assistant; Emergency Provider Emergency Medicine Emergency Medical Services
DX: F33.1 Major depressive disorder, recurrent, moderate (principal); R45.851 Suicidal ideations; F14.980 Cocaine use, unspecified with cocaine-induced anxiety disorder; F41.1 Generalized anxiety disorder; F43.0 Acute stress reaction; F11.959 Opioid use, unspecified with opioid-induced psychotic disorder, unspecified; Z51.81 Encounter for therapeutic drug level monitoring; Z79.899 Other long term (current) drug therapy
CPT/HCPCS: 36415; 80053; 80307; 81003; 83735; 85025; 99285; S9485

== ENCOUNTER 2025-03-16 10:33 | Outpatient (REF) | payer MEDICAID, SELFPAY ==
--- OUTSIDE RECORDS SUMMARY | 2025-03-16 09:00 | XMS_ITS | Encounter Summary ---
Author Organization [employer] Address [address] [place] [address] Care Team Providers Care Employee Development Manager Name Role Phone Peace Harvey MD Primary Care Provider [phone] Sobeida Nicholson OD Unavailable [phone] Diggs, Elif LM Unavailable [phone] Damaris West Unavailable Reason for Visit * Reason Comments Follow-up Encounter Details Date Type Department Care Team (Latest Contact Info) Description 03/16/2025 9:00 AM EST Office Visit [facility] [address], [place] [id number] Peace Harvey MD [address], [place] [id number] Type 2 diabetes mellitus without complication, without long-term current use of insulin (HCC) (Primary Dx); Opioid dependence, uncomplicated (CMS/HCC) (HCC); Severe episode of recurrent major depressive disorder, with psychotic features (CMS/HCC) (HCC); Dyslipidemia; Hypertension, unspecified type; Tobacco dependence syndrome; Mild intermittent asthma without complication; Polysubstance abuse (HCC); Routine screening for STI (sexually transmitted infection); Anemia, unspecified type; Other specified health status; Dietary counseling; Exercise counseling; Class 2 severe obesity due to excess calories with serious comorbidity and body mass index (BMI) of 39.0 to 39.9 in adult; Encounter for immunization Social History Tobacco Use Types Packs/Day Years Used Date Smoking Tobacco: Every Day Cigarettes Smokeless Tobacco: Never Alcohol Use Standard Drinks/Week Comments Never 0 (1 standard drink = 0.6 oz pur e alcohol) Depression Answer Date Recorded Patient Health Questionnaire-9 Score 23 03/03/2025 Patient Health Questionnaire-9 Score 23 03/03/2025 Last PHQ-9: Questionnaire Data Not on file 1 05/04/2024 Housing Stability Answer Date Recorded What is your housing situation today? I do not have housing (Staying with others, in a hotel, in a care home, living outside on the street, on a beach, in a car, or in a park 03/04/[address] you li ve. Do you have problems with any of the following? None of the above 03/04/2025 Food Insecurity Answer Date Recorded Within the past 12 months, y ou worried that your food would run out before you got money to buy more: Sometimes True 2024 Within the past 12 months,th e food you bought just didn't last and you didn't have enough money to get more: Sometimes True 03/04/2025 Transportation Answer Date Recorded In the past 12 months, has l ack of transportation kept you from medical appts, meetings, work or from getting things needed for daily living? Yes, it has kept me from medical appointments or getting medications. 03/04/2025 Utilities Answer Date Recorded In the past 12 months, has t he electric, gas, oil or water company threatened to shut off services in your home? No 03/04/2025 Depression Answer Date Recorded Patient Health Questionnaire-2 Score 6 03/03/2025 Internet Access Answer Date Recorded Internet Access Q1 Yes 03/04/2025 Internet Access Q2 Not on file 03/04/2025 Sex and Gender Information Value Date Recorded Sex Assigned at Male 01/28/2022 10:20 AM EDT Legal Sex Male 10:20 AM EDT Gender Identity Male 01/28/2022 10:20 AM EDT Sexual Orientation Straight 01/28/2022 10 :20 AM EDT documented as of this encounter Last Filed Vital Signs Vital Sign Reading Time Taken Comments Blood Pressure 139/82 03/16/2025 9:04 AM EST Pulse 75 03/16/2025 9:04 AM EST Temperature 37.2 C (98.9 F) 03/16/2025 9:04 AM EST Respiratory Rate 20 03/16/2025 9:04 AM EST Oxygen Saturation 98% 03/16/2025 9:04 AM EST Inhaled Oxygen Concentration - - Weight 100 kg (220 lb 6.4 oz) 03/16/2025 9:04 AM EST Height 160 cm (5' 3 ) 03/16/2025 9:04 AM EST Body Mass Index 39.04 03/16/2025 9:04 AM EST documented in this encounter Progress Notes * Peace Harvey MD - 03/16/2025 9:00 AM EST Subjective Patient ID: Erickson Holbrook is a 45 y.o. male with opiod use disorder, dyslipidemia, major depressive disorder with severe with psychotic fetaures, asthma, chronic low back pain, tobacco dependence, presenting todayfor hospital follow up and annual exam. Mr. Holbrook last visits with PCP were 2020 and 2023. Interim history: Last PCP visit 01/05/2024 for physical Patient with h/o substance use disorder and psychiatric illness presented hospitalized at [facility] from 01/26/25-02/10/25 for evaluation due to suicidal and homicidal ideation with a plan. Medications evaluated and adjusted. Patient worked on resolving HI towards . Symptoms improved and on discharge patient denied SI, HI, AH/VH. He was discharged and told to follow up at [facility]. He tells me he is not aware of any psychiatry appointment. He was evaluated by our behavior health and established with MAT services. He is in the Methadone program at [place]. Seen by behavior health today to make sure he is established with psychiatry. Medication changes that occurred during hospitalization include: Added bolded prescriptions picked up at [facility] pharmacy on discharge Clonidine 0.1 mg every 4 hours as needed for mod anxiety x 5 day supply Lidocaine 4% patch TD at bedtime Trazodone 50 mg at bedtime as needed for insomnia, may repeat once as needed Nicotine 2 mg - 2 gums buccal every 2 hours as needed for nicotine cravings Olanzapine 10 mg once daily at 7 pm Nicotine 21 mg/24 hr patch TD once daily as needed for smoking cessation Hydroxyzine HCL 25 mg every 6 hours as needed for mild anxiety Sertraline 50 mg at bedtime Naloxone 4 mg/act - spray 1 dose into ONE nostril; alternate nostrils w each dose until help arrives Methadone 10 mg/ml - 105 mg once daily Ibuprofen 600 mg every 6 hours as needed for back pain Acetaminophen 325 mg - 2 tabs every 6 hours as needed for TEAGUE/pain Changed: none Discontinued: none [facility] ED (02/18/25) Patient presented stating they were suicidal and depressed. Evaluated by care team. Discharged to [facility]. [facility] (02/19/25-03/02/25) Patient admitted from [facility] fur to concern of SI with multiple plans and command AH. Admitted for psychiatric evaluation and treatment. Patient reported not taking their quetiapine and sertraline for some time. Medications were restarted and titrated. Symptoms gradually improved. Patient denied SI and HI. Ready for discharge home. Medication changes that occurred during hospitalization include: Added picked up at [facility] pharmacy Hydroxyzine aime 50 mg every 4 hours as needed for mod to severe anxiety Quetiapine 100 mg at bedtime Sertraline 25 mg - 3 tabs (75 mg) once daily Changed: Lisinopril 10 mg once daily increased to 20 mg once daily Discontinued/not listed from prior discharge: clonidine, lidocaine patch, trazodone, olanzapine, nicotine gum/patch Current concerns: At baseline her reports chronic fatigue, back pain, and leg pain. Pt injects opiates but is guardedabout use. Reports last use 3 weeks ago. Social History Tobacco: approximately less than five per day Drugs: chronic opioid use Alcohol: No Suicide/Depression: The patient denies any present symptoms of depression or anxiety. Review of Systems Constitutional: Negative for fatigue, fever and unexpected weight change. Respiratory: Negative for cough. Cardiovascular: Negative for chest pain. Gastrointestinal: Negative for abdominal pain. Genitourinary: Negative for difficulty urinating. Current Outpatient Medications: albuterol (ProAir HFA) 108 (90 Base) MCG/ACT inhaler, Inhale 2 puffs every 4 (four) hours if neededfor wheezing., Disp: 18 g, Rfl: 1 hydrOXYzine pamoate (Vistaril) 50 MG capsule, Take 1 capsule (50 mg) by mouth every 6 (six) hours if needed for anxiety (moreate or severe)., Disp: 30 capsule, Rfl: 1 lisinopril 20 MG tablet, Take 1 tablet (20 mg) by mouth Once per day., Disp: 90 tablet, Rfl: 3 QUEtiapine (SEROquel) 100 MG tablet, Take 1 tablet (100 mg) by mouth at bedtime., Disp: 30 tablet, Rfl: 1 sertraline (Zoloft) 25 MG tablet, Take 3 tablets (75 mg) by mouth Once per day., Disp: 30 tablet, Rfl: 1 Allergies Allergen Reactions Penicillins Past Medical History: Diagnosis Date Dyslipidemia 09/11/2021 No results found for: CHOL , TRIG , HDL , LDLCHOLCAL , LDL -continue lifestyle modification -ordered labs 01/05/24 Hypertension 01/02/2012 -Blood pressure is at goal -Continue lifestyle modifications -Continue current medications Mild intermittent asthma 12/30/2016 Well-controlled on albuterol PRN. Polysubstance abuse (HCC) 01/02/2012 Long-term methadone maintenance, but not abstinent of illicit drugs. -referral for field hockey coach placed by [place] 01/05/24 Severe episode of recurrent major depressive disorder, without psychotic features (CMS/HCC) (HCC) 01/02/2012 Denies suicidial or homacidial ideation. Therapist and psychiatrist offered. - seen by [facility] 01/05/24, pt prefers to self refer to [facility] -referral to field hockey coach placed 01/05/24 Tobacco dependence syndrome 01/02/2012 -Cigg/day: 3 cigarettes/week -Age started: 14 -Total years smokin -Pack year history: Encouraged smoking cessation resources such as pharmacomtherapy, [facility] smoking cessation group, and [facility] pharmacy smoking cessation clinic Discussed USPSTF recommends annual lung cancer screening with low dose CT in people who meet the following criteria: -ages 50 to 80 years. -have a 20 pack-year Vitamin D deficiency 09/11/2021 No results found for: [id number] History reviewed. No pertinent surgical history. Family History Problem Relation Name Age of Onset Diabetes Sister (+) diabetic retinopathy Objective Visit Vitals BP 139/82 (BP Location: Left arm, Patient Position: Sitting, BP Cuff Size: Adult) Pulse 75 Temp 98.9 ??F (37.2 ??C) (Oral) Resp 20 Ht 5' 3 (1.6 m) Wt 220 lb 6.4 oz (100 kg) SpO2 98% BMI 39.04 kg/m?? Smoking Status Every Day BSA 2.11 m?? Physical Exam Constitutional: Appearance: Normal appearance. Comments: Appeared tired and nodding off, but was easily arousable. Cardiovascular: Rate and Rhythm: Normal rate and regular rhythm. Pulses: Dorsalis pedis pulses are 2+ on the right side and 2+ on the left side. Heart sounds: Normal heart sounds. Pulmonary: Effort: Pulmonary effort is normal. Breath sounds: Normal breath sounds. Abdominal: General: Abdomen is flat. Palpations: Abdomen is soft. Tenderness: There is no abdominal tenderness. Musculoskeletal: Cervical back: Normal range of motion and neck supple. Right lower leg: Normal. Left lower leg: Tenderness: mild with deep palpation. Right foot: No deformity or Charcot foot. Left foot: No deformity or Charcot foot. Comments: Varicose veins Feet: Right foot: Protective Sensation: 5 sites tested. 5 sites sensed. Skin integrity: Skin integrity normal. Toenail Condition: Right toenails are normal. Left foot: Protective Sensation: 5 sites tested. 5 sites sensed. Skin integrity: Skin integrity normal. Toenail Condition: Left toenails are normal. Lymphadenopathy: Cervical: No cervical adenopathy. Skin: General: Skin is warm and dry. Neurological: Mental Status: He is easily aroused. Mental status is at baseline. Psychiatric: Behavior: Behavior normal. 45 y.o. male physical exam. Assessment & Plan Type 2 diabetes mellitus without complication, without long-term current use of insulin ([facility]) Diabetes is controlled. Diagnosed with A1c 7.2 01/2025 at Lab Results Component Value Date HGBA1C 5.4 01/20/2024 Lab Results Component Value Date CREATININE 0.69 02/18/2025 EGFR >60 02/18/2025 LDLCHOLCAL TNP 01/20/2024 -Tucker/Arb: lisinopril 20mg -Statin therapy: await LFTs -Diabetic eye exam: due -Diabetic foot exam: 03/16/25, risk cat ) -Continue lifestyle modifications -Currently on diet alone, rerun after labs Orders: Albumin, Random Urine W/Creatinine; Future Hemoglobin A1c; Future Basic Metabolic Panel; Future Opioid dependence, uncomplicated (CMS/HCC) (HCC) Orders: ECG 12 lead Severe episode of recurrent major depressive disorder, with psychotic features (CMS/HCC) (HCC) Denies suicidial or homacidial ideation. Multiple hospitalizations and ER visits in Late 2024 -seen in ER 01/27/25 for suicidal ideation -hospitalized [facility] 01/26-02/10/25 for suicidal and homicidal ideation -seen in [facility] ER 02/18/25 for suicidal ideation and discharged to [facility] wherehe was admitted from 02/19/25-03/02/25 Denies current suicidial or homacidial ideation. -I have written for the medications he was discharged on from [facility] 03/02/25 Hydroxyzine aime 50 mg every 4 hours as needed for mod to severe anxiety Quetiapine 100 mg at bedtime Sertraline 25 mg - 3 tabs (75 mg) once daily I sent two months worth on 03/16/25 to his pharmacy. Seen in person by our behavior health 03/16/25to bridge him to psychiatry and confirm therapy. He has the number for crisis. EKG done due to concomitant quetiapine and sertraline had QT/Qtc 388/389 ms Dyslipidemia Orders: Hepatic Function Panel; Future Lipid Panel, Standard; Future Hypertension, unspecified type - continue current medications - work on lifestyle modifications Orders: lisinopril 20 MG tablet; Take 1 tablet (20 mg) by mouth Once per day. Tobacco dependence syndrome - follow PCP's recommendation Mild intermittent asthma without complication - ell controlled on albuterol prn Polysubstance abuse (HCC) Long-term methadone maintenance, but not abstinent of illicit drugs. -[facility] 03/03/25 -in Methadone program at [place] -has Naloxone Routine screening for STI (sexually transmitted infection) Orders: Hepatitis C Antibody with Reflex to HCV, RNA, Quantitative, Real-Time PCR; Future HIV-1/2 Antigen and Antibodies, Fourth Generation, with Reflexes; Future Syphilis Screen; Future Chlamydia/N. Gonorrhoeae, PCR, Urine Anemia, unspecified type Orders: CBC auto differential; Future Ferritin; Future TSH with Reflex to Free T4; Future Iron And Total Iron Binding Capacity; Future Vitamin B12 (Cobalamin) and Folate Panel, Serum; Future Other specified health status -next physical exam due after 03/16/26 -referral to [facility] sent 01/05/24 -dental home encouraged 01/05/24 -health care proxy filed 01/05/24 Dietary counseling Exercise counseling Class 2 severe obesity due to excess calories with serious comorbidity and body mass index (BMI) of39.0 to 39.9 in adult Encounter for immunization Orders: HEPATITIS B VACCINE 19 yrs HEPATITIS A VACCINE ADULT 18 yrs + FLU VACCINE TRIVALENT [id number] (Fluarix) 19 yrs + TDAP VACCINE 7 yrs + Physical exam -Normal growth and development. -Anticipatory guidance discussed. -Preventative care / harm reduction discussed. After visit he was walked to [facility] on the third floor to establish with therapy and psychiatry and then walked to the lab to get fasting labs. Follow up in about 1 month (around 04/16/2025) for follow up labs. documented in this encounter Miscellaneous Notes * Assessment & Plan Note - Peace Harvey MD - 03/16/2025 9:00 AM EST Associated Problem(s): Dyslipidemia Orders: Hepatic Function Panel; Future Lipid Panel, Standard; Future * Assessment & Plan Note - Peace Harvey MD - 03/16/2025 9:00 AM EST Associated Problem(s): Opioid dependence, uncomplicated (CMS/HCC) (HCC) Orders: ECG 12 lead * Assessment & Plan Note - Peace Harvey MD - 03/16/2025 9:00 AM EST Associated Problem(s): Type 2 diabetes mellitus without complication, without long-term current useof insulin (HCC) Diabetes is controlled. Diagnosed with A1c 7.2 01/2025 at Lab Results Component Value Date HGBA1C 5.4 01/20/2024 Lab Results Component Value Date CREATININE 0.69 02/18/2025 EGFR >60 02/18/2025 LDLCHOLCAL TNP 01/20/2024 -Tucker/Arb: lisinopril 20mg -Statin therapy: await LFTs -Diabetic eye exam: due -Diabetic foot exam: 03/16/25, risk cat ) -Continue lifestyle modifications -Currently on diet alone, rerun after labs Orders: Albumin, Random Urine W/Creatinine; Future Hemoglobin A1c; Future Basic Metabolic Panel; Future * Assessment & Plan Note - Peace Harvey MD - 03/16/2025 9:00 AM EST Associated Problem(s): Hypertension - continue current medications - work on lifestyle modifications Orders: lisinopril 20 MG tablet; Take 1 tablet (20 mg) by mouth Once per day. * Assessment & Plan Note - Peace Harvey MD - 03/16/2025 9:00 AM EST Associated Problem(s): Severe episode of recurrent major depressive disorder, with psychotic features (CMS/HCC) (HCC) Denies suicidial or homacidial ideation. Multiple hospitalizations and ER visits in Late 2024 -seen in ER 01/27/25 for suicidal ideation -hospitalized [facility] 01/26-02/10/25 for suicidal and homicidal ideation -seen in [facility] ER 02/18/25 for suicidal ideation and discharged to [facility] wherehe was admitted from 02/19/25-03/02/25 Denies current suicidial or homacidial ideation. -I have written for the medications he was discharged on from [facility] 03/02/25 Hydroxyzine aime 50 mg every 4 hours as needed for mod to severe anxiety Quetiapine 100 mg at bedtime Sertraline 25 mg - 3 tabs (75 mg) once daily I sent two months worth on 03/16/25 to his pharmacy. Seen in person by our behavior health 03/16/25to bridge him to psychiatry and confirm therapy. He has the number for crisis. EKG done due to concomitant quetiapine and sertraline had QT/Qtc 388/389 ms * Assessment & Plan Note - Peace Harvey MD - 03/16/2025 9:00 AM EST Associated Problem(s): Tobacco dependence syndrome - follow PCP's recommendation * Assessment & Plan Note - Peace Harvey MD - 03/16/2025 9:00 AM EST Associated Problem(s): Mild intermittent asthma - ell controlled on albuterol prn * Assessment & Plan Note - Peace Harvey MD - 03/16/2025 9:00 AM EST Associated Problem(s): Polysubstance abuse (HCC) Long-term methadone maintenance, but not abstinent of illicit drugs. -[facility] 03/03/25 -in Methadone program at [place] -has Naloxone * Assessment & Plan Note - Peace Harvey MD - 03/16/2025 9:00 AM EST Associated Problem(s): Other specified health status -next physical exam due after 03/16/26 -referral to [facility] sent 01/05/24 -dental home encouraged 01/05/24 -health care proxy filed 01/05/24 documented in this encounter Plan of Treatment Upcoming Encounters Date Type Department Care Team (Late st Contact Info) Description 05/02/2025 10:45 AM EST Office Visit [facility] [address] [place] [address] Peace Harvey MD [address] [place] [address] Scheduled Orders Name Type Priority Associated Diagnoses Orde r Schedule Hepatic Function Panel Lab Routine Dyslipidemia Expected: 03/16/2025 (Approximate), Expires: 03/16/2026 Lipid Panel, Standard Lab Routine Dyslipidemia Expected: 03/16/2025 (Approximate), Expires: 03/16/2026 Basic Metabolic Panel Lab Routine Type 2 diabetes mellitus without complication, without long-term current use of insulin (HCC) Expected: 03/16/2025 (Approximate), Expires: 03/16/2026 Hepatitis C Antibody with Reflex to HCV, RNA, Quantitative, Real-Time PCR Lab Routine Routine screening for STI (sexually transmitted infection) Expected: 03/16/2025 (Approximate), Expires: 03/16/2026 HIV-1/2 Antigen and Antibodies, Fourth Generation, with Reflexes Lab Routine Routine screening for STI (sexually transmitted infection) Expected: 03/16/2025 (Approximate), Expires: 03/16/2026 Syphilis Screen Lab Routine Routine screening for STI (sexually transmitted infection) Expected: 03/16/2025 (Approximate), Expires: 03/16/2026 Ferritin Lab Routine Anemia, unspecified type Expected: 03/16/2025, Expires: 03/16/2026 TSH with Reflex to Free T4 Lab Routine Anemia, unspecified type Expected: 03/16/2025 (Approximate), Expires: 03/16/2026 Iron And Total Iron Binding Capacity Lab Routine Anemia, unspecified type Expected: 03/16/2025, Expires: 03/16/2026 Vitamin B12 (Cobalamin) and Folate Panel, Serum Lab Routine Anemia, unspecified type Expected: 03/16/2025, Expires: 03/16/2026 documented as of this encounter Goals Goal Patient Goal Type Associated Problems Recent Progress Patient-Stated? Author Help patients manage their type 2 diabetes Care Plan Help patients manage their type 2 diabetes Peace Falcon MD Weekly blood pressure task Care Plan Weekly blood pressure task Peace Falcon MD Help patients manage their type 2 diabetes Care Plan Help patients manage their type 2 diabetes Peace Falcon MD Patient has chronic kidney disease Care Plan Patient has chronic kidney disease Peace Falcon MD Weekly blood pressure task Care Plan Weekly blood pressure task No Peace Harvey MD Patient has chronic kidney disease Care Plan Patient has chronic kidney disease No Peace Harvey MD Weekly blood pressure task Care Plan Weekly blood pressure task No Diggs, Elif, LMHC Weekly blood pressure task Care Plan Weekly blood pressure task No Diggs, Elif, LMHC Patient has chronic kidney disease Care Plan Patient has chronic kidney disease No Diggs, Elif, LMHC Patient has chronic kidney disease Care Plan Patient has chronic kidney disease No Diggs, Elif, LMHC documented as of this encounter Procedures Procedure Name Priority Date/Time Associated Diagnosis Comments CHLAMYDIA/TRICHOMONA S/NEISSERIA GONORRHOEAE, PCR, URINE Routine 03/16/2025 10:37 AM EST Routine screening for STI (sexually transmitted infection) ALBUMIN, RANDOM URINE W/CREATININE Routine 03/16/2025 10:37 AM EST Type 2 diabetes mellitus without complication, without long-term current use of insulin (HCC) CBC WITH AUTO DIFFERENTIAL Routine 03/16/2025 10:37 AM EST Anemia, unspecified type HEMOGLOBIN A1C Routine 03/16/2025 10:37 AM EST Type 2 diabetes mellitus without complication, without long-term current use of insulin (HCC) ECG 12-LEAD Routine 03/16/2025 10:09 AM EST Opioid dependence, uncomplicated (CMS/HCC) (HCC) documented in this encounter Results * (ABNORMAL) CBC auto differential (03/16/2025 10:37 AM EST) White Blood Count 8.2 4.8 - 10.8 X10*3/uL [facility] Red Blood Count 4.27(L) 4.60 - 5.80 X10*6/uL [facility] Hemoglobin 12.8(L) 14.0 - 18.0 g/dl [facility] Hematocrit 39.7(L) 42.0 - 52.0 % [facility] Mean Corpuscular Volume 93.0 80.0 - 98.0 fL [facility] Mean Corpuscular Hemoglobin 30.0 27.0 - 33.0 pg [facility] Mean Corpuscular HGB Conc 32.2 31.0 - 36.0 g/dl [facility] Red Cell Distribution Width 11.6 11.0 - 16.0 % [facility] Platelet Count 265 160 - 400 X10*3/uL [facility] Mean Platelet Volume 9.6 9.4 - 12.4 fL [facility] Neutrophils Percent Auto 47.5 45 - 73 % [facility] Imm Gran Pct Auto 0.7(H) 0.0 - 0.4 % [facility] Lymphocytes Percent Auto 41.1(H) 20 - 40 % [facility] Monocytes Percent Auto 7.7 2 - 11 % [facility] Eosinophils Percent Auto 2.8 0 - 4 % [facility] Basophils Percent Auto 0.2 0 - 2 % [facility] NRBC Pct Auto 0.0 0.0 - 0.2 /100WBC [facility] Neutrophils Absolute Auto 3.9 2.0 - 8.3 x10*3/uL [facility] Imm Gran Abs Auto 0.06(H) 0.00 - 0.03 X10*3/uL [facility] Lymphocytes Absolute Auto 3.4 1.2 - 4.9 X10*3/uL [facility] Monocytes Absolute Auto 0.6 0.1 - 1.2 X10*3/uL [facility] Eosinophils Absolute Auto 0.2 0.0 - 0.4 X10*3/uL [facility] Basophils Absolute Auto 0.0 0.0 - 0.2 X10*3/uL [facility] NRBC Abs Auto 0.000 0.0 - 0.012 X10*3/uL [facility] Blood Venous blood specimen / Unknown 03/16/2025 10:37 AM EST 03/16/2025 11:27 AM EST us Peace Harvey MD LAB BLOOD ORDERABLES Final Result [facility] [address] [place] [address] [phone] * Chlamydia/N. Gonorrhoeae, PCR, Urine (03/16/2025 10:37 AM EST) CT PCR, Urine NOT DETECTED Not Detect. [facility] Comment:A not detected test result does not exclude the possibilityof infection because test results can be affected byimproper specimen collection, concurrent antibiotic therapy,or the number of organisms in the specimen which may bebelow the sensitivity of the test. As with many diagnostictests, results from the Xpert CT/NG assay should beinterpreted in conjunction with other laboratory andclinical data available to the clinician.The Xpert CT/NG assay should not be used for the evaluationof suspected sexual abuse or for other medico-legalindications. Additional testing is recommended in anycircumstance when false positive or false negative resultscould lead to adverse medical, social or psychologicalconsequences. NG PCR, Urine NOT DETECTED Not Detect. [facility] Comment:A not detected test result does not exclude the possibilityof infection because test results can be affected byimproper specimen collection, concurrent antibiotic therapy,or the number of organisms in the specimen which may bebelow the sensitivity of the test. As with many diagnostictests, results from the Xpert CT/NG assay should beinterpreted in conjunction with other laboratory andclinical data available to the clinician.The Xpert CT/NG assay should not be used for the evaluationof suspected sexual abuse or for other medico-legalindications. Additional testing is recommended in anycircumstance when false positive or false negative resultscould lead to adverse medical, social or psychologicalconsequences. Urine (Urine, Random) 03/16/2025 10:37 AM EST 03/16/2025 11:11 AM EST Peace Harvey MD LAB URINE ORDERABLES Final Result [facility] [address] [place] [address] [phone] * (ABNORMAL) Hemoglobin A1c (03/16/2025 10:37 AM EST) Hemoglobin A1c 6.9(H) <6.0 % [facility] Comment:Hemoglobin A1C Refer ence Range Adults: 4.8 - 6.0 % Non diabetic: < 6.0 % Goal: < 7.0 %Additional Action Suggested: > 8.0 %Note: Hemoglobin A1c results are invalid for patients with abnormal amounts of HbF. Blood transfusions may impact the HbA1c concentration in the patient sample. Estimated Average Glucose 151 mg/dL [facility] Comment:eAG = Estimated ave rage glucose which is %A1C expressed asaverage glucose, using the formula of the E2Y-IfhvxlnGupikpt Glucose study (ADAG), Diabetes Care, Vol.31,#8,Oct. 2007 Blood Venous blood specimen / Unknown 03/16/2025 10:37 AM EST 03/16/2025 11:27 AM EST Peace Harvey MD LAB BLOOD ORDERABLES Final Result Performing Organization Address City/[facility]/ZIP Co de Phone Number [facility] [address] [place] [phone] * Albumin, Random Urine W/Creatinine (03/16/2025 10:37 AM EST) Creatinine, Urine 99.32 mg/dL [facility] Microalbumin Urine <5.0 mg/L [facility] Microalbum Creatinine Ratio Ur TNP <30 ug/mg cr [facility] Comment:Unable to calculate albumin/creatinine ratio due to lowmicroalbumin or creatinine result. Urine 03/16/2025 10:3 7 AM EST 03/16/2025 11:11 AM EST Peace Harvey MD LAB URINE ORDERABLES Final Result Performing Organization Address City/[facility]/ZIP Co de Phone Number [facility] [address] [place] [phone] * ECG 12 lead (03/16/2025 10:09 AM EST) Narrative Peace Harvey MD - 03/16/2025 10:09 AM EST NSR QtQtc [id number] Peace Harvey MD ECG ORDERABLES Final Resu lt documented in this encounter Visit Diagnoses Diagnosis Type 2 diabetes mellitus without complication, without long-term current use of insulin (HCC)- Primary Opioid dependence, uncomplicated (CMS/HCC) (HCC) Severe episode of recurrent major depressive disorder, with psychotic features (CMS/[facility]) (HCC) Dyslipidemia Other and unspecified hyperlipidemia Hypertension, unspecified type Tobacco dependence syndrome Tobacco use disorder Mild intermittent asthma without complication Polysubstance abuse (HCC) Other, mixed, or unspecified nondependent drug abuse, unspecified Routine screening for STI (sexually transmitted infection) Screening examination for venereal disease Anemia, unspecified type Other specified health status Dietary counseling Dietary surveillance and counseling Exercise counseling Class 2 severe obesity due to excess calories with serious comorbidity and body mass index (BMI) of 39.0 to 39.9 in adult Encounter for immunization documented in this encounter Additional Health Concerns Active Problems Noted Date Diagnosed Date Help patients manage their type 2 diabetes 03/15 Weekly blood pressure task 03/15/2025 Help patients manage their type 2 diabetes 03/15 Patient has chronic kidney disease 03/15/2025 Weekly blood pressure task 03/15/2025 Patient has chronic kidney disease 03/15/2025 Weekly blood pressure task 03/16/2025 Weekly blood pressure task 03/16/2025 Patient has chronic kidney disease 03/16/2025 Patient has chronic kidney disease 03/16/2025 Assessment Noted Time PHQ-9 Depression Total Score: 23 025 2:45 PM EST documented as of this encounter Care Teams Employee Development Manager Relationship Specialty Start Date End Date Peace Harvey MD [address] [place] [address] PCP - General Family Medicine 03/31/18 Sobeida Nicholson OD [address] [place] [address] Optometry 06/01/24 Elif Diggs, [facility] Milled Lumber Grader Behavioral Health 02/23/25 Damaris West 02/28/25 documented as of this encounter
[2025-03-16 11:29] LABS: MANUAL DIFF FLAG NO
[2025-03-16 11:40] LABS: Hematocrit 39.7 % (42.0-52.0); Hemoglobin 12.8 g/dl (14.0-18.0); Imm Gran Abs Auto 0.06 X10*3/uL (0.00-0.03); Imm Gran Pct Auto 0.7 % (0.0-0.4); Lymphocytes Absolute Auto 3.4 X10*3/uL (1.2-4.9); Mean Corpuscular HGB Conc 32.2 g/dl (31.0-36.0); Mean Corpuscular Hemoglobin 30.0 pg (27.0-33.0); Mean Corpuscular Volume 93.0 fL (80.0-98.0); NRBC Abs Auto 0.000 X10*3/uL (0.0-0.012); NRBC Pct Auto 0.0 /100WBC (0.0-0.2); Platelet Count 265 X10*3/uL (160-400); Red Blood Count 4.27 X10*6/uL (4.60-5.80); White Blood Count 8.2 X10*3/uL (4.8-10.8)
[2025-03-16 12:49] LABS: CT PCR Urine NOT DETECTED (Not Detect.); NG PCR Urine NOT DETECTED (Not Detect.)
--- OUTSIDE RECORDS SUMMARY | 2025-03-16 13:11 | XMS_ITS | Encounter Summary ---
Author Organization [employer] Address [address] [facility] 7[address] [place] [address] Care Team Providers Care Hand Crown Pouncer Name Role Phone Peace Harvey MD Primary Care Provider + [phone] Jonathan Nicholsonn OD Unavailable [phone]tanxa [facility] Unavailable [phone] Damaris West Unavailable Encounter Details Date Type Department Care Team ([facility] st Contact Info) Description 03/11/2025 Patient Outreach [facility] (C3) Department [address] [facility] [address] [place] [phone] Damaris West Social History Tobacco Use Types Packs/Day Years [...] with others, in a hotel, in a skilled nursing, living outside on the street, on a [...] AM EDT documented as of this encounter Progress Notes * Damaris West - 03/11/2025 12:36 PM EST Outbound call to member to complete weekly check in- [phone] unsuccessful contact. LVM with blindstitch lining feller to let him know to call TW back and PT1 informaiton for PT1 03/16 at 9am documented in this encounter Plan of Treatment Upcoming Encounters Date Type Department Care Team (Late st Contact Info) Description 05/02/2025 10:45 AM EST Office Visit [facility] MED[facility] [address] [place] [address] Peace Harvey MD [address] [place] [address] documented as of this encounter Visit Diagnoses Not on filedocumented in this encounter Additional Health Concerns Assessment Noted Time PHQ-9 Depression Total Score: 23 025 2:45 PM EST documented as of this encounter Care Teams Hand Crown Pouncer Relationship Specialty Start Date End Date Peace Harvey MD [address] [place], [place] [phone] PCP - General Family Medicine 03/31/18 Sobeida Nicholson OD [address] [place] [address] [phone] Optometry 06/01/24 Elif Diggs, [facility] Dental Hygiene Professor Behavioral Health 02/23/25 Damaris West 02/28/25 documented as of this encounter
--- OUTSIDE RECORDS SUMMARY | 2025-03-16 13:11 | XMS_ITS | Encounter Summary ---
Author Organization [employer] Address [address] [facility] 7[address] [place] [address] Care Team Providers Care Hospital Coordinator Name Role Phone Peace Harvey MD Primary Care Provider +- [phone] Sobeida Nicholson OD Unavailable [phone] DiggsElif gaytan LM Unavailable [phone] Damaris West Unavailable Reason for Visit * Reason Comments Transition Of Care (Tcm) HDF scheduled Encounter Details Date Type Department Care Team (Late st Contact Info) Description 02/28/2025 Patient Outreach [facility] MED[facility] [address] [place] [address] Peace Harvey MD [address] [place] [address] Transition Of Care (Tcm) (HDF scheduled) Social History Tobacco Use Types Packs/Day Years [...] with others, in a hotel, in a jail, living outside on the street, on a [...] AM EDT documented as of this encounter Functional Status * Over the past 2 weeks, how often have you been bothered by any of the following problems? Question Answer Date of Assessment Author Patient Health Questionnaire-2 Score 6 03/03/2025 2:45 PM Haja Slater LICSW * Little interest or pleasure in doing things Answer Date of Assessment Author Nearly every day 03/03/2025 2:45 PM Nathalia Slater LICSW * Feeling down, depressed, or hopeless Answer Date of Assessment Author Nearly every day 03/03/2025 2:45 PM Nathalia Slater LICSW * Trouble falling or staying asleep, or sleeping too much Answer Date of Assessment Author Nearly every day 03/03/2025 2:45 PM Nathalia Slater LICSW * Feeling tired or having little energy Answer Date of Assessment Author Nearly every day 03/03/2025 2:45 PM Nathalia Slater LICSW * Poor appetite or overeating Answer Date of Assessment Author Nearly every day 03/03/2025 2:45 PM EST Nathalia Cui LICSW * Feeling bad about yourself - or that you are a failure or have let yourself or your family down Answer Date of Assessment Author Nearly every day 03/03/2025 2:45 PM EST Nathalia Cui SUPERVISOR PUBLIC MESSAGE SERVICE * Trouble concentrating on things, such as reading the newspaper or watching television Answer Date of Assessment Author Nearly every day 03/03/2025 2:45 PM EST Nathalia Cui SUPERVISOR PUBLIC MESSAGE SERVICE * Moving or speaking so slowly that other people could have noticed? Or the opposite - being so fidgety or restless that you have been moving around a lot more than usual. Answer Date of Assessment Author Not at all 03/03/2025 2:45 PM EST Nathalia Cui LICSW * Thoughts that you would be better off or hurting yourself in some way Answer Date of Assessment Author More than half the days 03/03/2025 2:45 PM EST Nathalia Carcamo LICSW * Patient Health Questionnaire-9 Score Answer Date of Assessment Author 23 03/03/2025 2:45 PM EST Nathalia Cui LICSW * How difficult have these problems made it for you to do your work, take care of things at home, or get along with other people? Answer Date of Assessment Author Extremely difficult 03/03/2025 2:45 PM EST Nathalia Fragoso LICSW documented as of this encounter Miscellaneous Notes * Significant Event - Valencia Brielle - 02/28/2025 12:31 PM EST 02/28/25 1231 Hospital Discharges and Admission for [facility] Type of Visit Mental Health Admission Date of Admission/Visit (unknown) Date of Discharge 03/02/25 Facility [facility] Diagnosis Unknown Disposition Admitted Follow-Up Actions Follow-Up Needed Provider appointment Follow-Up Outcome Spoke to Caregiver Initial Contact Date 02/28/25 Received incoming call from the [facility]. MONSE Spoke with Veronica from [phone] Patient has been scheduled for an HDF appointment on at 9:[address] Candice SHEA requested discharge summaries to be faxed to the Care Management Department at [phone]. CC will follow up on discharge summary following patient's discharge. documented in this encounter Plan of Treatment Upcoming Encounters Date Type Department Care Team (Late st Contact Info) Description 05/02/2025 10:45 AM EST Office Visit [facility] MED[facility] [address] [place] [address] Peace Harvey MD [address] [place] [address] documented as of this encounter Goals Goal Patient Goal Type Associated Problems Recent Progress Patient-Stated? Author Help patients manage their type 2 diabetes Care Plan Help patients manage their type 2 diabetes No Peace Harvey MD Weekly blood pressure task Care Plan Weekly blood pressure task No Peace Harvey MD Help patients manage their type 2 diabetes Care Plan Help patients manage their type 2 diabetes No Peace Harvey MD Patient has chronic [...] Elif, LMHC documented as of this encounter Visit Diagnoses Not on filedocumented in this encounter Additional Health Concerns Active [...] Assessment Noted Time PHQ-9 Depression Total Score: 19 024 9:04 AM EDT documented as of this encounter Care Teams Hospital Coordinator Relationship Specialty Start Date End Date Peace Harvey MD [address] [place] [address] PCP - General Family Medicine 03/31/18 Sobeida Nicholson OD [address] [place] [address] Optometry 06/01/24 Elif Diggs, [facility] International Bank Manager Behavioral Health 02/23/25 Damaris West 02/28/25 documented as of this encounter
--- OUTSIDE RECORDS SUMMARY | 2025-03-16 13:11 | XMS_ITS | Encounter Summary ---
Author Organization [employer] Address [address] [facility] [address] 7[address] [place] [address] Care Team Providers Care Optometrist/Practice Owner Name Role Phone Peace Harvey MD Primary Care Provider + [phone] Jonathan Nicholsonn OD Unavailable [phone] DiggsElif gaytan [facility] Unavailable [phone] Jenna, Damaris Unavailable Encounter Details Date Type Department Care Team (Late st Contact Info) Description 03/15/2025 Telephone [facility] [address] [place] [address] [place], [place] Social History Tobacco Use Types Packs/Day Years [...] with others, in a hotel, in a halfway, living outside on the street, on a [...] AM EDT documented as of this encounter Miscellaneous Notes * Telephone Encounter - Laura Jones [place] - 03/15/2025 10:27 AM EST Chart Prep Labs: done Images: done Referrals: not applicable Vaccines due: Covid, Flu, Tdap, and Hep B Screenings: colonoscopy Overdue care gaps: SBIRT and Disability screen documented in this encounter Plan of Treatment Upcoming Encounters Date Type Department Care Team (Late st Contact Info) Description 05/02/2025 10:45 AM EST Office Visit [facility] [address] [place] [address] Peace Harvey MD [address] [place] [address] documented as of this encounter Goals Goal [...] chronic kidney disease No Peace Harvey MD documented as of this encounter Visit Diagnoses Not on filedocumented in this encounter Additional Health Concerns Active Problems Noted Date Diagnosed Date Help patients manage their type 2 diabetes 03/15 Weekly blood pressure task 03/15/2025 Help patients manage their type 2 diabetes 03/15 Patient has chronic kidney disease 03/15/2025 Weekly blood pressure task 03/15/2025 Patient has chronic kidney disease 03/15/2025 Assessment Noted Time PHQ-9 Depression Total Score: 23 025 2:45 PM EST documented as of this encounter Care Teams Optometrist/Practice Owner Relationship Specialty Start Date End Date Peace Harvey MD [address] [place] [address] PCP - General Family Medicine 03/31/18 Sobeida Nicholson OD [address] [place] [address] Optometry 06/01/24 Elif Diggs [facility] Orientation & Mobility Specialist Behavioral Health 02/23/25 Damaris West 02/28/25 documented as of this encounter
--- OUTSIDE RECORDS SUMMARY | 2025-03-16 13:11 | XMS_ITS | Encounter Summary ---
Author Organization [employer] Address [address] [place] [address] Care Team Providers Care Dust Collector Name Role Phone Physician, Pcp Unknown Primary Care Provider Chelly vailable Encounter Details Date Type Department Care Team (Late st Contact Info) Description 02/20/[address] [facility] - Main Lab [address] [facility] [place] [address] Sofia Martinez, NIDHI [address] [place] [address] Other m[facility]p (current) drug therapy Social History Tobacco Use Types Packs/Day Years Used Date Smoking Tobacco: Never Assessed Sex and Gender Information Value Date Recorded Sex Assigned at Not on file Legal Sex Male 7:32 PM EST Gender Identity Not on file Sexual Orientation Not on file documented as of this encounter Plan of Treatment Not on file documented as of this encounter Procedures Procedure Name Priority Date/Time Associated Diagnosis Comments LIPID PANEL WITH REFLEX TO DIRECT LDL Routine 02/20/2025 7:00 AM EST Other mcfp (current) drug therapy HEMOGLOBIN A1C Routine 02/20/2025 7:00 AM EST Other intermodal truck driver (current) drug therapy GLUCOSE, RANDOM Routine 02/20/2025 7:00 AM EST Other mcfp (current) drug therapy documented in this encounter Results * (ABNORMAL) Hemoglobin A1c (02/20/2025 7:00 AM EST) Hemoglobin A1C 7.2(H) <6.5 % LAB CHEMISTRY METHOD 02/21/2025 1:04 PM EST [facility] Mean Bld Glu Estim. 160 mg/dL LAB CHEMISTRY METHOD 02/21/2025 1:04 PM EST [facility] Blood Venous blood specimen / Unknown Venipuncture / Unknown 02/20/2025 7:00 AM EST 02/20/2025 7:06 AM EST Sofia Martinez NP LAB BLOOD ORDERABLES Final Resul t Performing Organization Address [facility]/ZIP Co de Phone Number [facility] [address] [place] [address], [place] [phone] * (ABNORMAL) Glucose, random (02/20/2025 7:00 AM EST) Glucose 119(H) 70 - 100 mg/dL 02/20/2025 8:45 AM EST [facility] Blood Venous blood specimen / Unknown Venipuncture / Unknown 02/20/2025 7:00 AM EST 02/20/2025 7:06 AM EST Sofia Martinez NP LAB BLOOD ORDERABLES Final Resul t Performing Organization Address [facility]/ZIP Co de Phone Number [facility] [address] [place] [address], [place] [phone] * (ABNORMAL) Lipid panel with reflex to direct LDL (02/20/2025 7:00 AM EST) Cholesterol 188 0 - 200 mg/dL 02/20/2025 8:47 AM EST [facility] Triglycerides 273(H) 0 - 150 mg/dL 02/20/2025 8:47 AM EST [facility] HDL 41 >=40 mg/dL 02/20/2025 8:47 AM EST [facility] LDL Calculated 92 0 - 100 mg/dL 02/20/2025 8:47 AM EST [facility] Comment:Estimated LDL Calcul ated using equation: Total cholesterol - HDL cholesterol - (Triglycerides/5) VLDL Cholesterol Jonas 54.6 mg/dL 02/20/2025 8:47 AM EST [facility] Non HDL Chol. (LDL+VLDL) 147(H) <145 mg/dL 02/20/2025 8:47 AM EST [facility] Chol/HDL Ratio 4.6(H) 0.0 - 4.4 02/20/2025 8:47 AM EST [facility] Blood Venous blood specimen / Unknown Venipuncture / Unknown 02/20/2025 7:00 AM EST 02/20/2025 7:06 AM EST us Sofia Martinez NP LAB BLOOD ORDERABLES Final Resul t [facility] [address] [place] [address], [place] [phone] documented in this encounter Visit Diagnoses Diagnosis Other mcfp (current) drug therapy documented in this encounter Care Teams Dust Collector Relationship Specialty Start Date End Date Physician, Pcp Unknown PCP - General 02/21/25 documented as of this encounter
--- OUTSIDE RECORDS SUMMARY | 2025-03-16 13:11 | XMS_ITS | Encounter Summary ---
Author Organization [employer] Address [address] [facility] 7t [place] [address] Care Team Providers Care Automatic Profile Sander Operator Name Role Phone Peace Harvey MD Primary Care Provider + [phone] Jonathan Nicholsonn OD Unavailable [phone] DiggsRo gaytanxa [facility] Unavailable [phone] Damaris West Unavailable Encounter Details Date Type Department Care Team ([facility] st Contact Info) Description 03/15/2025 Patient Outreach [facility] (C3) Department [address] [facility] 7 [place] [phone] Damaris West Social History Tobacco Use Types [...] with others, in a hotel, in a prison, living outside on the street, on a [...] encounter Progress Notes * Damaris West - 03/15/2025 2:43 PM EST 2nd attempt to complete weekly check in, unsuccessful contact. Had loader unloader ANA requesting call back documented in this encounter Plan of Treatment Upcoming Encounters Date Type Department Care Team (Late st Contact Info) Description 05/02/2025 10:45 AM EST Office Visit [facility] [address] [place] [address] Peace Harvey MD [address] [place] [address] documented as of this encounter Goals Goal [...] has chronic kidney disease Peace Falcon MD documented as of this encounter Visit [...] documented as of this encounter Care Teams Automatic Profile Sander Operator Relationship Specialty Start Date End Date Peace Harvey MD [address] [place] [address] PCP - General Family Medicine 03/31/18 Sobeida Nicholson OD [address] [place] [address] Optometry 06/01/24 Elif Diggs, [facility] Rate Marker Behavioral Health 02/23/25 Damaris West 02/28/25 documented as of this encounter
--- OUTSIDE RECORDS SUMMARY | 2025-03-16 13:11 | XMS_ITS | Encounter Summary ---
Author Organization [employer] Address [address] [facility] [address] 7[address] [place] [address] Care Team Providers Care Assembler Cards And Announcements Name Role Phone Peace Harvey MD Primary Care Provider + [phone] Sobeida Nicholson OD Unavailable [phone] Elif Diggs [facility] Unavailable [phone] Damaris West Unavailable Encounter Details Date Type Department Care Team (Latest Contact Info) Description 03/16/2025 Travel Social History Tobacco Use Types Packs/Day Years [...] AM EDT documented as of this encounter Plan of Treatment Upcoming Encounters Date Type Department Care Team (Late st Contact Info) Description 05/02/2025 10:45 AM EST Office Visit [facility] MEDICINE [address] [place] [address] Peace Harvey MD [address] [place] [address] documented as of this encounter Goals Goal [...] Care Plan Weekly blood pressure task No DiggsRoxa, LMHC Weekly blood pressure task Care Plan Weekly blood pressure task No Diggs, Elif, LMHC Patient has chronic kidney disease Care Plan Patient has chronic kidney disease No Diggs, Elif, LMHC Patient has chronic kidney disease Care Plan Patient has chronic kidney disease No Elif Diggs LMHC documented as of this encounter Visit [...] documented as of this encounter Care Teams Assembler Cards And Announcements Relationship Specialty Start Date End Date Peace Havrey MD [address] [place] [address] PCP - General Family Medicine 03/31/18 Sobeida Nicholson OD [address] [place] [address] Optometry 06/01/24 Elif Diggs LMHC Afternoon [facility] 02/23/25 Damaris West 02/28/25 documented as of this encounter
--- OUTSIDE RECORDS SUMMARY | 2025-03-16 13:11 | XMS_ITS | Encounter Summary ---
Author Organization [employer] Address [address] [facility] [address] [place] [address] Care Team Providers Care Government Gauger Name Role Phone Peace Harvey MD Primary Care Provider + [phone] Jonathan Nicholsonn OD Unavailable [phone] Elif Diggs [facility] Unavailable [phone] Jenna Damaris Unavailable Encounter Details Date Type Department Care Team ([facility] st Contact Info) Description 03/16/2025 Patient Outreach [facility] (C3) Department [address] [facility] [address] [place] [id number] Elif Diggs, [facility] Social History Tobacco Use Types Packs/Day Years [...] with others, in a hotel, in a snf, living outside on the street, on a [...] the past 12 months, has t he [employer], gas, oil or water company threatened to [...] as of this encounter Progress Notes * CAMRYN Buckley - 03/16/2025 11:22 AM EST Weekly Check In [phone] Czech Speaking ANA Almanzar documented in this encounter Plan of Treatment Upcoming Encounters Date Type Department Care Team (Late st Contact Info) Description 05/02/2025 10:45 AM EST Office Visit [facility] [address] [place] [address] Peace Harvey MD [address] [place] [address] documented as of this encounter Goals Goal [...] documented as of this encounter Care Teams Government Gauger Relationship Specialty Start Date End Date Peace Harvey MD [address] [place] [id number] PCP - General Family Medicine 03/31/18 Sobeida Nicholson OD [address] [place] [address] Optometry 06/01/24 Elif Diggs LMHC [facility] 02/23/25 Damaris West 02/28/25 documented as of this encounter
--- OUTSIDE RECORDS SUMMARY | 2025-03-16 13:11 | XMS_ITS ---
Author Organization [employer] Address [address] [facility] [address] [place] [address] Care Team Providers Care Paradichlorobenzene Machine Operator Name Role Phone Candice, Peace PINA Primary Care Provider + [phone] Sobeida Nicholson OD Unavailable [phone] Elif Diggs LMHC Unavailable [phone] Damaris West Unavailable C3 [facility] TO Status:Enrolled (Active) Start date:02/23/2025 Enrollment date:03/03/2025 Enrollment reason:ADT Feed Case Team Name Relationship Phone Elif Diggs LMHC(Responsible Staff) Social Worke r [phone] Continued Care and Services Coordination
--- OUTSIDE RECORDS SUMMARY | 2025-03-16 13:11 | XMS_ITS | Clinical Summary ---
Author Organization [address] [facility] Address [address] [place] [address] Phone Care Team Providers Care Record Producer Name Role Phone Physician, Pcp Unknown Primary Care Provider Chelly vailable Encounters Date Type Department Care Team Description 02/20/2025 Lab Requisition [facility] [address] [facility] [place] [address] Sofia Martinez NP Other meterman (current) drug therapy from Last 3 Months Social History Tobacco Use Types Packs/Day Years Used Date Smoking Tobacco: Never Assessed Sex and Gender Information Value Date Recorded Sex Assigned at Not on file Legal Sex Male 7:32 PM EST Gender Identity Not on file Sexual Orientation Not on file Plan of Treatment Health Maintenance Due Date Last Done Comments Colorectal Cancer Screening: Colonoscopy 1979 DTaP,Tdap,and Td Vaccines (1 - Tdap) 1998 Hepatitis B Vaccines (1 of 3 - 19+ 3-dose series) 1998 Depression Screening 03/31/2024 COVID-19 Vaccine (1 - 2024-2 6 season) 2024 Influenza Vaccine (#1) 2024 HIV Screening 02/20/2025 Hepatitis C Screening 02/20/2025 Social Influencers of Health Screening 02/20/2025 Cholesterol Screening (Lipid Panel) 02/20/2030 02/20/2025 RSV Immunization Adult Patie nts (1 - 1-dose 75+ series) 2054 HIB Vaccines Aged Out No longer eligi ble based on patient's age to complete this topic HPV Vaccines Aged Out No longer eligi ble based on patient's age to complete this topic Hepatitis A Vaccines Aged Out No long er eligible based on patient's age to complete this topic IPV Vaccines Aged Out No longer eligi ble based on patient's age to complete this topic MMR Vaccines Aged Out No longer eligi ble based on patient's age to complete this topic Meningococcal ACWY Vaccine Aged Out N o longer eligible based on patient's age to complete this topic Meningococcal B Vaccine Aged Out No l onger eligible based on patient's age to complete this topic Pneumococcal Vaccine: Pediat rics (0 to 5 Years) and At-Risk Patients (6 to 49 Years) Aged Out No longer eligi ble based on patient's age to complete this topic RSV Immunization Patients Un dee dee 20 months Aged Out No longer eligible b ased on patient's age to complete this topic Varicella Vaccines Aged Out No longer eligible based on patient's age to complete this topic Procedures Procedure Name Priority Date/Time Associated Diagnosis Comments HEMOGLOBIN A1C Routine 02/20/2025 7:00 AM EST Other snf (current) drug therapy GLUCOSE, RANDOM Routine 02/20/2025 7:00 AM EST Other snf (current) drug therapy LIPID PANEL WITH REFLEX TO DIRECT LDL Routine 02/20/2025 7:00 AM EST Other snf (current) drug therapy from Last 3 Months Results * (ABNORMAL) Lipid panel with reflex to direct LDL (02/20/2025 7:00 AM EST) Cholesterol 188 0 - 200 mg/dL 02/20/2025 8:47 AM [facility] Triglycerides 273(H) 0 - 150 mg/dL 02/20/2025 8:47 AM [facility] HDL 41 >=40 mg/dL 02/20/2025 8:47 AM [facility] LDL Calculated 92 0 - 100 mg/dL 02/20/2025 8:47 AM [facility] Comment:Estimated LDL Calcul ated using equation: Total cholesterol - HDL cholesterol - (Triglycerides/5) VLDL Cholesterol Jonas 54.6 mg/dL 02/20/2025 8:47 AM [facility] Non HDL Chol. (LDL+VLDL) 147(H) <145 mg/dL 02/20/2025 8:47 AM EST [facility] Chol/HDL Ratio 4.6(H) 0.0 - 4.4 02/20/2025 8:47 AM EST [facility] Blood Venous blood specimen / Unknown Venipuncture / Unknown 02/20/2025 7:00 AM EST 02/20/2025 7:06 AM EST us Sofia Martinez NP LAB BLOOD ORDERABLES Final Resul t Performing Organization Address City/[facility]/ZIP Co de Phone Number [facility] [address] [place] [address], [place] [phone] * (ABNORMAL) Hemoglobin A1c (02/20/2025 7:00 AM EST) Hemoglobin A1C 7.2(H) <6.5 % LAB CHEMISTRY METHOD 02/21/2025 1:04 PM EST [facility] Mean Bld Glu Estim. 160 mg/dL LAB CHEMISTRY METHOD 02/21/2025 1:04 PM EST [facility] Blood Venous blood specimen / Unknown Venipuncture / Unknown 02/20/2025 7:00 AM EST 02/20/2025 7:06 AM EST us Sofia Martinez NP LAB BLOOD ORDERABLES Final Resul t Performing Organization Address City/[facility]/ZIP Co de Phone Number [facility] [address] [place] [address], [place] [phone] * (ABNORMAL) Glucose, random (02/20/2025 7:00 AM EST) Glucose 119(H) 70 - 100 mg/dL 02/20/2025 8:45 AM EST [facility] Blood Venous blood specimen / Unknown Venipuncture / Unknown 02/20/2025 7:00 AM EST 02/20/2025 7:06 AM EST us Sofia Martinez NP LAB BLOOD ORDERABLES Final Resul t [facility] [address] [place] [address], from Last 3 Months Insurance [facility] MEDICA[employer] Care Teams Record Producer Relationship Specialty Start Date End Date Physician, Pcp Unknown PCP - General 02/21/25
--- OUTSIDE RECORDS SUMMARY | 2025-03-16 13:12 | XMS_ITS ---
Author Organization [employer] Address [address] [facility] [address] [place] [address] Care Team Providers Care Engineering Programmer Name Role Phone Candice, Peace PINA Primary Care Provider + [phone] Sobeida Nicholson OD Unavailable [phone] Diggs, Elif LMHC Unavailable [phone] Damaris West Unavailable [facility] Status:Enrolled (Active) Start date:02/28/2025 Enrollment date:03/04/2025 Enrollment reason:ADT Feed Case Team Name Relationship Phone Damaris West(Responsible Staff) Continued Care and Services Coordination
--- OUTSIDE RECORDS SUMMARY | 2025-03-16 13:12 | XMS_ITS | Clinical Summary ---
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 albuterol (ProAir HFA) 108 (90 Base) MCG/ACT inhalerIndicatio ns:Mild intermittent asthma without complication Inhale 2 puffs every 4 (four) hours if needed for wheezing. 18 g 1 01/05/20 24 Active hydrOXYzine pamoate (Vistaril) 50 MG capsule Take 1 capsule (50 mg) by mouth every 6 (six) hours if needed for anxiety (moreate or severe). 30 capsule 1 03/16/20 25 Active QUEtiapine (SEROquel) 100 MG tablet Take 1 tablet (100 mg) by mouth at bedtime. 30 tablet 1 03/16/20 25 Active sertraline (Zoloft) 25 MG tablet Take 3 tablets (75 mg) by mouth Once per day. 30 tablet 1 03/16/20 25 Active lisinopril 20 MG tabletIndication s:Hypertension Take 1 tablet (20 mg) by mouth Once per day. 90 tablet 3 03/16/20 25 Active lisinopril 10 MG tabletIndication s:Hypertension, unspecified type Take 1 tablet (10 mg) by mouth Once per day. 30 tablet 11 02/10/20 24 025 Discontinued(Me d list cleanup (will not trigger notification to Pharmacy)) ibuprofen 800 MG tablet Take 1 tablet (800 mg) by mouth every 8 (eight) hours if needed for moderate pain, fever or headaches. 30 tablet 04/20/19 025 Discontinued(Me d list cleanup (will not trigger notification to Pharmacy)) loratadine (Claritin) 10 MG tablet TAKE 1 TABLET BY MOUTH DAILY 90 tablet 07/14/19 025 Discontinued(Me d list cleanup (will not trigger notification to Pharmacy)) fluticasone (Flonase) 50 MCG/ACT nasal spray INSTILL 1-2 SPRAYS IN EACH NOSTRIL ONCE DAILY. SHAKE GENTLY. BEFORE FIRST USE, PRIME PUMP. CLEAN TIP 48 g 07/14/19 025 Discontinued(Me d list cleanup (will not trigger notification to Pharmacy)) hydrOXYzine pamoate (Vistaril) 50 MG capsuleIndicatio ns:Depressive disorder Take 1 capsule by mouth every 4 (four) hours if needed for anxiety (moreate or severe). 03/01/20 025 Discontinued(Re order (will not trigger notification to Pharmacy)) lisinopril 20 MG tabletIndication s:Hypertension Take 1 tablet by mouth Once per day. 03/01/20 025 Discontinued(Re order (will not trigger notification to Pharmacy)) QUEtiapine (SEROquel) 100 MG tabletIndication s:Depressive disorder Take 1 tablet by mouth at bedtime. 03/01/20 025 Discontinued(Re order (will not trigger notification to Pharmacy)) sertraline (Zoloft) 25 MG tabletIndication s:Depressive disorder Take 3 tablets by mouth Once per day. 03/01/20 025 Discontinued(Re order (will not trigger notification to Pharmacy)) Active Problems Problem Noted Date Diagnosed Date Opioid dependence, uncomplicated ([facility]) 03/15 Assessment & Plan (03/16/2025 10:09 AM EST): Orders: ECG 12 lead Type 2 diabetes mellitus wit hout complication, without long-term current use of insulin 03/15/2025 Overview (03/16/2025): Diabetes is controlled. Diagnosed with A1c 7.2 01/2025 at [facility] Lab Results Component Value Date HGBA1C 5.4 01/20/2024 Lab Results Component Value Date CREATININE 0.69 02/18/2025 EGFR >60 02/18/2025 LDLCHOLCAL TNP 01/20/2024 -Tucker/Arb: lisinopril 20mg -Statin therapy: await LFTs -Diabetic eye exam: due -Diabetic foot exam: 03/16/25, risk cat ) -Continue lifestyle modifications -Currently on diet alone, rerun after labs Assessment & Plan (03/16/2025 10:09 AM EST): Diabetes is controlled. Diagnosed with A1c 7.2 01/2025 at [facility] Lab Results Component Value Date HGBA1C 5.4 01/20/2024 Lab Results Component Value Date CREATININE 0.69 02/18/2025 EGFR >60 02/18/2025 LDLCHOLCAL TNP 01/20/2024 -Tucker/Arb: lisinopril 20mg -Statin therapy: await LFTs -Diabetic eye exam: due -Diabetic foot exam: 03/16/25, risk cat ) -Continue lifestyle modifications -Currently on diet alone, rerun after labs Orders: Albumin, Random Urine W/Creatinine; Future Hemoglobin A1c; Future Basic Metabolic Panel; Future Suicidal ideations 03/03/2025 Homicidal ideations 03/03/2025 Cardiac risk counseling 02/19/2024 Overview (02/19/2024): Calculated [...] 01/05/24 Other specified health status 01/17/2023 Overview (03/16/2025): -next physical exam due after 03/16/26 -referral to [facility] sent 01/05/24 -dental home encouraged 01/05/24 -health care proxy filed 01/05/24 Assessment & Plan (03/16/2025 10:09 AM EST): -next physical exam due after 03/16/26 -referral to [facility] sent 01/05/24 -dental home encouraged 01/05/24 -health care proxy filed 01/05/24 Assessment & Plan (01/05/2024 7:54 PM EDT): -next physical exam due after 01/04/25 -referral to [facility] sent 01/05/24 -dental home encouraged 01/05/24 -health care proxy filed 01/05/24 Dyslipidemia 09/11/2021 Overview (03/15/2025): Outside labs Ref Range & Units 3 wk ago Cholesterol 0 - 200 mg/dL 188 Triglycerides 0 - 150 mg/dL 273 High HDL >=40 mg/dL 41 LDL Calculated 0 - 100 mg/dL 92 Comment: Estimated LDL Calculated using equation: Total cholesterol - HDL cholesterol - (Triglycerides/5) VLDL Cholesterol Jonas mg/dL 54.6 Non HDL Chol. (LDL+VLDL) <145 mg/dL 147 High Chol/HDL Ratio 0.0 - 4.4 4.6 High Resulting Agency [facility] Specimen Collected: 02/20/25 07:00 Performed by: [facility] -continue lifestyle modification Assessment & Plan (03/16/2025 10:09 AM EST): Orders: Hepatic Function Panel; Future Lipid Panel, Standard; Future Assessment & Plan (01/05/2024 7:52 PM EDT): No results found for: CHOL , TRIG , HDL , LDLCHOLCAL , LDL -continue lifestyle modification -ordered labs 01/05/24 Vitamin D deficiency 09/11/2021 Overview (11/17/2024): Lab Results Component Value Date [id number] 25.5 (L) 01/20/2024 Assessment & Plan (01/05/2024 7:56 PM EDT): No results found for: [id number] Mild intermittent asthma 12/30/2016 Overview (01/05/2024): Well-controlled on albuterol PRN. Assessment & Plan (03/16/2025 10:09 AM EST): - ell controlled on albuterol prn Assessment & Plan (04/24/2024 6:33 PM EST): - continue albuterol Assessment & Plan (01/05/2024 7:56 PM EDT): Well-controlled on albuterol PRN. Hypertension 01/02/2012 Overview (01/05/2024): -Blood pressure is at goal -Continue lifestyle modifications -Continue current medications Assessment & Plan (03/16/2025 10:09 AM EST): - continue current medications - work on lifestyle modifications Orders: lisinopril 20 MG tablet; Take 1 tablet (20 mg) by mouth Once per day. Assessment & Plan (04/24/2024 6:32 PM EST): - elevated today - continue current medications - work on lifestyle modifications Assessment & Plan (01/05/2024 7:51 PM EDT): -Blood pressure is at goal -Continue lifestyle modifications -Continue current medications Severe episode of recurrent major depressive disorder, with psychotic features ([facility]/HCC) 01/02/2012 Overview (03/16/2025): Denies suicidial or homacidial ideation. Multiple hospitalizations and ER visits in Late 2024 -seen in ER 01/27/25 for suicidal ideation -hospitalized [facility] 01/26-02/10/25 for suicidal and homicidal ideation -seen in [facility] ER 02/18/25 for suicidal ideation and discharged to [facility] where he was admitted from 02/19/25-03/02/25 Denies current suicidial or homacidial ideation. -I have written for the medications he was discharged on from [facility] 03/02/25 Hydroxyzine aime 50 mg every 4 hours as needed for mod to severe anxiety Quetiapine 100 mg at bedtime Sertraline 25 mg - 3 tabs (75 mg) once daily I sent two months worth on 03/16/25 to his pharmacy. Seen in person by our behavior health 03/16/25 to bridge him to psychiatry and confirm therapy. He has the number for crisis. EKG done due to concomitant quetiapine and sertraline had QT/Qtc 388/389 ms Assessment & Plan (03/16/2025 10:09 AM EST): Denies suicidial or homacidial ideation. Multiple hospitalizations and ER visits in Late 2024 -seen in ER 01/27/25 for suicidal ideation -hospitalized [facility] 01/26-02/10/25 for suicidal and homicidal ideation -seen in [facility] ER 02/18/25 for suicidal ideation and discharged to [facility] where he was admitted from 02/19/25-03/02/25 Denies current suicidial or homacidial ideation. -I have written for the medications he was discharged on from [facility] 03/02/25 Hydroxyzine aime 50 mg every 4 hours as needed for mod to severe anxiety Quetiapine 100 mg at bedtime Sertraline 25 mg - 3 tabs (75 mg) once daily I sent two months worth on 03/16/25 to his pharmacy. Seen in person by our behavior health 03/16/25 to bridge him to psychiatry and confirm therapy. He has the number for crisis. EKG done due to concomitant quetiapine and sertraline had QT/Qtc 388/389 ms Assessment & Plan (01/05/2024 7:55 PM EDT): Denies suicidial or homacidial ideation. Therapist and psychiatrist offered. -seen by [facility] 01/05/24, pt prefers to self refer to [facility] -referral to organ recovery coordinator placed 01/05/24 Backache 01/02/2012 Overview (01/17/2023): Chornic since age 13. No focal motor neruo deficits. Per pt, pain unchanged. X ray 11/2013 revealed mild anterolisthesis of L5 on S1. Alignment was otherwise anatomic. No additional significant degenerative change. He was previously followed by [facility] for injections, last seen [address] Iyer 06/2014. He did not finish [...] degenerative change. He was previously followed by [facility] for injections, last seen [address] Iyer 06/2014. He did not finish [...] with the plan. Polysubstance abuse 01/02/2012 Overview (03/16/2025): Long-term methadone maintenance, but not abstinent of illicit drugs. [facility] 03/03/25 In Methadone program at [place] Has Naloxone Assessment & Plan (03/16/2025 10:09 AM EST): Long-term methadone maintenance, but not abstinent of illicit drugs. -[facility] to [facility] 03/03/25 -in Methadone program at [place] -has Naloxone Assessment & Plan (01/05/2024 7:55 PM EDT): Long-term methadone maintenance, but not abstinent of illicit drugs. -referral for organ recovery coordinator placed by [facility] 01/05/24 Tobacco dependence syndrome 01/02/2012 Overview (01/05/2024): -Cigg/day: 3 cigarettes/week -Age started: 14 -Total years smokin -Pack year history: Encouraged smoking cessation resources such as pharmacomtherapy, [facility] smoking cessation group, and [facility] pharmacy smoking cessation clinic Discussed USPSTF recommends annual lung cancer screening with low dose CT in people who meet the following criteria: -ages 50 to 80 years. -have a 20 pack-year smoking history. -currently smoke cigarettes or quit within the past 15 years. -LDCT: na Assessment & Plan (03/16/2025 10:09 AM EST): - follow PCP's recommendation Assessment & Plan (04/24/2024 6:34 PM EST): - follow PCP's recommendation Assessment & Plan (01/05/2024 7:54 PM EDT): -Cigg/day: 3 cigarettes/week -Age started: 14 -Total years smokin -Pack year history: Encouraged smoking cessation resources such as pharmacomtherapy, [facility] smoking cessation group, and [facility] pharmacy smoking cessation clinic Discussed USPSTF recommends [...] 01/02/2012 01/05/2024 Tinea corporis 01/02/2012 01/05/2024 Encounters * This document contains information received from the source organization and may not represent a complete record from that organization. Date Type Department Care Team Description 03/16/2025 9:00 AM EST Office Visit [facility] MEDICINE [address] [place] [phone] Peace Harvey MD Type 2 diabetes mellitus without complication, without [...] to 39.9 in adult; Encounter for immunization 03/16/2025 Patient Outreach [facility] [address] [place] [address] Diggs, Elif, LMHC 03/16/2025 Travel 03/15/2025 Patient Outreach [facility] [address] [place] [address] Jenna, Damaris 03/15/2025 Telephone [facility] WALK-IN CENTER [address] [place] [address] [phone] Robert Bra[place], [place] 03/11/2025 Patient Outreach [facility] [address] [place] [address] Jenna, Damaris 03/10/2025 Patient Outreach [facility] [address] [place] [address] Diggs, Elif, LMHC 03/09/2025 Patient Outreach [facility] [address] [place] [address] Diggs, Elif, LMHC 03/07/2025 Patient Outreach [facility] [address] [place] [address] Diggs, Elif, LMHC 03/04/2025 Patient Outreach [facility] [address] [place] [address] Jenan, Damaris 03/04/2025 Patient Outreach [facility] [address] [place] [address] Diggs, Elif, LMHC 03/03/2025 Patient Outreach [facility] [address] [place] [address] Diggs, Elif, LMHC 03/03/2025 Patient Outreach [facility] [address] [place] [address] Diggs Elif, [facility] 02/28/2025 Patient Outreach [facility] MEDICINE [address] [place] [address] Peace Harvey MD Transition Of Care (Tcm) (HDF scheduled) 02/28/2025 Patient Outreach [facility] MEDICINE [address] [place] [address] Peace Harvey MD Care Coordination ( [facility]) 02/18/2025 Orders Only GENERIC EXTERNAL DATA DEPARTMENT Provider, Generic External Data 01/26/2025 Orders Only [facility] External Provider, [facility] from Last 3 Months Immunizations Immunization Administration Dates Next Due Hep A, Adult 03/16/2025,01/05/2024 Hep B, adult 03/16/2025,01/05/2024 Influenza injectable quadrivalent preservative f ree 12/27/2020,06/07/2015 Influenza, IIV3, injectable 01/17/2014 Influenza, Split (incl. purified surface antigen ) 01/18/2013 Influenza, seasonal, injectable, preservative fr ee 03/16/2025,01/05/2024 Moderna Covid-19 Vaccine 6+ Bivalent 03/28/2022 Pfizer Covid-19 Vaccine 12+ 01/05/2024 Pneumococcal Conjugate PCV 20 01/05/2024 Tdap 03/16/2025,01/17/2014 Family History Medical History Relation Name Comments [...] with others, in a hotel, in a fpc, living outside on the street, on a [...] Mass Index 39.04 03/16/2025 9:04 AM EST Plan of Treatment Upcoming Encounters Date Type Department Care Team (Late st Contact Info) Description 05/02/2025 10:45 AM EST Office Visit [facility] MEDICINE [address] [place] [address] Peace Harvey MD [address] [facility] [place] [address] Health Maintenance Due Date Last Done Comments CT Colonography 1979 Colonoscopy 1979 Colorectal Cancer Screening 1979 FIT DNA/Cologuard 1979 FIT 1979 FOBT 1979 Sigmoidoscopy 1979 Disability Screening 1979 Alcohol/Substance Use Screening 1991 COVID-19 Vaccine ( season) 2024 01/05/2024, 03/28/2022, 10/26/2021, Additional history exists Lipid Panel 01/19/2025 01/20/2024, 02/28/2020 Hepatitis B Vaccines (3 of 3 - 19+ 3-dose series) 05/11/2025 03/16/2025, 01/05/2024 Diabetes: Hemoglobin A1C 06/14/2025 025, 02/20/2025, 01/20/2024 Depression Monitoring 09/01/2025 03/03/2025, 025 SDOH Screening 03/04/2026 03/04/2025 Diabetes: Foot Exam 03/16/2026 03/16/2025, 03/16/2025, 03/16/2025 Diabetes: Urine Protein Screening 03/16/2026 03/16/2025 Family Planning (PISQ) 03/16/2026 03/16/2025 Tobacco Screening 03/16/2026 03/16/2025 Eye Exam 04/21/2026 04/21/2024, 04/01, 04/21/2024, Additional history exists Zoster Vaccines (1 of 2) 2029 DTaP/Tdap/Td Vaccines (3 - Td or Tdap) 03/16/2035 03/16/2025, 01/17/2014 RSV Patients and Patients Aged 60 years or older (1 - 1-dose 75+ series) 2054 Pneumococcal Vaccine: Pediatrics (0 to 5 Years) and At-Risk Patients (6 to 49) Years Completed 01/05/2024 HIV Screening Completed 01/20/2024, 01/31, 02/28/2020 Hepatitis C Screening Completed 01/20/2024 , 02/28/2020, 02/28/2020 Hepatitis A Vaccines Aged Out 03/16/2025, 01/05/20 24 No longer eligible based on patient's age to complete this topic Influenza Vaccine Completed 03/16/2025, , 12/27/2020, Additional history exists HIB Vaccines Aged Out No longer eligi [...] on patient's age to complete this topic Goals Goal Patient Goal Type Associated Problems [...] Plan Patient has chronic kidney disease No Diggs Elif, LMHC Procedures Procedure Name Priority Date/Time Associated Diagnosis Comments CBC WITH AUTO DIFFERENTIAL Routine 03/16/2025 10:37 AM EST Anemia, unspecified type HEMOGLOBIN A1C Routine 03/16/2025 10:37 AM EST Type 2 diabetes mellitus without complication, without long-term current use of insulin (HCC) ALBUMIN, RANDOM URINE W/CREATININE Routine 03/16/2025 10:37 AM EST Type 2 diabetes mellitus without complication, without long-term current use of insulin (HCC) CHLAMYDIA/TRICHOMONAS /NEISSERIA GONORRHOEAE, PCR, URINE Routine 03/16/2025 10:37 AM EST Routine screening for STI (sexually transmitted infection) ECG 12-LEAD Routine 03/16/2025 10:09 AM EST Opioid dependence, uncomplicated (CMS/HCC) (HCC) ETHANOL Routine 02/18/2025 4:03 PM EST MAGNESIUM Routine 02/18/2025 4:03 PM EST COMPREHENSIVE METABOLIC PANEL Routine 02/18/2025 4:03 PM EST CBC WITH AUTO DIFFERENTIAL Routine 02/18/2025 4:03 PM EST DRUG MONITOR, PANEL 1, SCREEN, URINE Routine 02/18/2025 3:57 PM EST URINALYSIS WITH REFLEX MICROSCOPIC Routine 02/18/2025 3:57 PM EST XR LUMBAR SPINE COMPLETE 4+ VIEWS Routine [...] Recently Relevant to Health Maintenance Results * Chlamydia/N. Gonorrhoeae, PCR, Urine (03/16/2025 10:37 AM EST) CT PCR, Urine NOT DETECTED Not Detect. [facility] Comment:A not detected test result [...] NG PCR, Urine NOT DETECTED Not Detect. [facility] Comment:A not detected test result [...] URINE ORDERABLES Final Result Performing Organization Address [facility] Co de Phone Number [facility] [address] [place] [phone] * Albumin, Random Urine W/Creatinine (03/16/2025 10:37 AM EST) Creatinine, Urine 99.32 mg/dL [facility] Microalbumin Urine <5.0 mg/L [facility] Microalbum Creatinine Ratio Ur TNP <30 ug/mg cr [facility] Comment:Unable to calculate albumin/creatinine ratio due to lowmicroalbumin or creatinine result. Urine 03/16/2025 10:3 7 AM EST 03/16/2025 11:11 AM EST Peace Harvey MD LAB URINE ORDERABLES Final Result Performing Organization Address [facility] de Phone Number [facility] [address] [place] [phone] * (ABNORMAL) CBC auto differential (03/16/2025 10:37 AM EST) Only the most recent of3 resultswithin the time period is included. White Blood Count 8.2 4.8 - 10.8 X10*3/uL [facility] Red Blood Count 4.27(L) 4.60 - 5.80 X10*6/uL [facility] Hemoglobin 12.8(L) 14.0 - 18.0 g/dl [facility] Hematocrit 39.7(L) 42.0 - 52.0 % [facility] Mean Corpuscular Volume 93.0 80.0 - 98.0 fL [facility] Mean Corpuscular Hemoglobin 30.0 27.0 - 33.0 pg [facility] Mean Corpuscular HGB Conc 32.2 31.0 - 36.0 g/dl [facility] Red Cell Distribution Width 11.6 11.0 - 16.0 % [facility] Platelet Count 265 160 - 400 X10*3/uL [facility] Mean Platelet Volume 9.6 9.4 - 12.4 fL [facility] Neutrophils Percent Auto 47.5 45 - 73 % [facility] Imm Gran Pct Auto 0.7(H) 0.0 - 0.4 % [facility] Lymphocytes Percent Auto 41.1(H) 20 - 40 % [facility] Monocytes Percent Auto 7.7 2 - 11 % [facility] Eosinophils Percent Auto 2.8 0 - 4 % [facility] Basophils Percent Auto 0.2 0 - 2 % [facility] NRBC Pct Auto 0.0 0.0 - 0.2 /100WBC [facility] Neutrophils Absolute Auto 3.9 2.0 - 8.3 x10*3/uL [facility] Imm Gran Abs Auto 0.06(H) 0.00 - 0.03 X10*3/uL [facility] Lymphocytes Absolute Auto 3.4 1.2 - 4.9 X10*3/uL [facility] Monocytes Absolute Auto 0.6 0.1 - 1.2 X10*3/uL [facility] Eosinophils Absolute Auto 0.2 0.0 - 0.4 X10*3/uL [facility] Basophils Absolute Auto 0.0 0.0 - 0.2 X10*3/uL [facility] NRBC Abs Auto 0.000 0.0 - 0.012 X10*3/uL [facility] Blood Venous blood specimen / Unknown 03/16/2025 10:37 AM EST 03/16/2025 11:27 AM EST us Peace Harvey MD LAB BLOOD ORDERABLES Final Result Performing Organization Address [facility]/ZIP Co de Phone Number [facility] [address] [place] [phone] [phone] * (ABNORMAL) Hemoglobin A1c (03/16/2025 10:37 AM EST) Hemoglobin A1c 6.9(H) <6.0 % [facility] Comment:Hemoglobin A1C Refer ence Range Adults: 4.8 - 6.0 % Non diabetic: < 6.0 % Goal: < 7.0 %Additional Action Suggested: > 8.0 %Note: Hemoglobin A1c results are invalid for patients with abnormal amounts of HbF. Blood transfusions may impact the HbA1c concentration in the patient sample. Estimated Average Glucose 151 mg/dL [facility] Comment:eAG = Estimated ave rage glucose which is %A1C expressed asaverage glucose, using the formula of the N2H-[id number] Glucose study (ADAG), Diabetes Care, Vol.31,#8,Oct. 2007 Blood Venous blood specimen / Unknown 03/16/2025 10:37 AM EST 03/16/2025 11:27 AM EST Peace Harvey MD LAB BLOOD ORDERABLES Final Result Performing Organization Address City/[facility]/ZIP Co de Phone Number [facility] [address] [place] [phone] * ECG 12 lead (03/16/2025 10:09 AM EST) Narrative Peace Harvey MD - 03/16/2025 10:09 AM EST NSR QtQtc 388/389 Peace Harvey MD ECG ORDERABLES Final Resu lt * Ethanol (02/18/2025 4:03 PM EST) Only the most recent of2 resultswithin the time period is included. ETHANOL (MG/DL) IN SER/PLAS <10 mg/dL [facility] Comment:Serum/plasma ethanol results are to be used formedical/treatment purposes only. 02/18/2025 4:03 PM EST 02/18/2025 4:15 PM EST us Generic External Data Provider LAB BLOOD ORDERAB LES Final Result Performing Organization Address City/[facility]/ZIP Co de Phone Number [facility] [address] [place] [address] [phone] * Magnesium (02/18/2025 4:03 PM EST) Magnesium 1.8 1.6 - 2.6 mg/dL [facility] 02/18/2025 4:03 PM EST 02/18/2025 4:15 PM EST Generic External Data Provider LAB BLOOD ORDERAB LES Final Result Performing Organization Address [facility] de Phone Number [facility] [address] [place] [phone] * (ABNORMAL) Comprehensive Metabolic Panel (02/18/2025 4:03 PM EST) Only the most recent of2 resultswithin the time period is included. Sodium 140 135 - 145 mmol/L [facility] Potassium 3.8 3.3 - 5.1 mmol/L [facility] Chloride 103 96 - 108 mmol/L [facility] Carbon Dioxide 28 22 - 29 mmol/L [facility] Anion Gap 13 12 - 20 [facility] Urea Nitrogen (BUN) 11 9 - 16 mg/dL [facility] Creatinine, Serum 0.69 0.5 - 1.4 mg/dL [facility] Creatinine Clr Calc Pharmacy 139.2 [facility] Comment:eGFR (calculated fro m the MDRD study equation) and eCrCl(calculated from the Cockcroft-Gault equation) are based ondifferent parameters and may not yield comparable results.If eCrCl result is absurd, please check patient'sheight/weight. Estimated Glomerular Filt Rate >60 [facility] Comment:Chronic Kidney Disea se: Estimated GFR < 60 mL/min/1.51t3Sljuts Kidney Disease: Estimated GFR < 15 mL/min/1.73m2 Glucose 179(H) 60 - 115 mg/dL [facility] Calcium 9.3 8.4 - 10.2 mg/dL [facility] Bilirubin, Total 0.2 0.0 - 1.0 mg/dL [facility] Aspartate Amino Transferase 29 5 - 37 U/L [facility] Alanine Aminotransferase 19 0 - 40 U/L [facility] Total Protein 7.4 6.5 - 8.0 g/dL [facility] Albumin Level 4.8 3.5 - 5.0 g/dL [facility] Alkaline Phosphatase 102 39 - 117 U/L [facility] 02/18/2025 4:03 PM EST 02/18/2025 4:15 PM EST us Generic External Data Provider LAB BLOOD ORDERAB LES Final Result Performing Organization Address City/State/[facility] Co de Phone Number [facility] [address] [place] [phone] * (ABNORMAL) Drug Monitoring, Panel 1, Screen, Urine (02/18/2025 3:57 PM EST) Only the most recent of2 resultswithin the time period is included. Opiate Screen Urine Not Detected Not Detect [facility] Comment:Opiate cut-off is 30 0 ng/mL.Positive results are unconfirmed and should not be used fornon-medical purposes. Barbiturates, Urine Not Detected Not Detect [facility] Comment:Barbiturate cut-off is 200 ng/mL.Positive results are unconfirmed and should not be used fornon-medical purposes. Phencyclidine Screen Urine Not Detected Not Detect [facility] Comment:Phencyclidine cut-of f is 25 ng/mL.Positive results are unconfirmed and should not be used fornon-medical purposes. Amphetamine Screen Urine Not Detected Not Detect [facility] Comment:Amphetamine cut-off is 1000 ng/mL.Positive results are unconfirmed and should not be used fornon-medical purposes. Benzodiazepines Screen Urine Not Detected Not Detect [facility] Comment:Benzodiazepine cut-o ff is 200 ng/mL.Positive results are unconfirmed and should not be used fornon-medical purposes. Cocaine Screen Urine POSITIVE(A) Not Detect [facility] Comment:Cocaine cut-off is 3 00 ng/mL.Positive results are unconfirmed and should not be used fornon-medical purposes. Cannabinoid Screen Urine Not Detected Not Detect [facility] Comment:Cannabinoid cut-off is 50 ng/mL.Positive results are unconfirmed and should not be used fornon-medical purposes. Methadone Screen, Urine Positive(A) Not Detect ng/mL [facility] Comment:Methadone cut-off is 300 ng/mL.Positive results are unconfirmed and should not be used fornon-medical purposes. FENTANYL URINE POSITIVE(A) Not Detect [facility] Comment:Fentanyl cut-off is 1 ng/mL.Positive results are unconfirmed and should not be used fornon-medical purposes. Oxycodone Urine Screen Not Detected Not Detect ng/mL [facility] Comment:Oxycodone cut-off is 100 ng/mL.Positive results are unconfirmed and should not be used fornon-medical purposes. Buprenorphine Screen Not Detected Not Detect ng/mL [facility] Comment:Buprenorphine cut-of f is 5 ng/mL.Positive results are unconfirmed and should not be used fornon-medical purposes. 02/18/2025 3:57 PM EST 02/18/2025 4:15 PM EST Generic External Data Provider LAB URINE ORDERAB LES Final Result [facility] [address] [place] [phone] * (ABNORMAL) Urinalysis w/reflex microscopic (02/18/2025 3:57 PM EST) Only the most recent of2 resultswithin the time period is included. Color Urine Yellow [facility] Appearance Urine Clear [facility] PH 5.5 5.0 - 9.0 [facility] Glucose Urine UA 500(A) Negative mg/dL [facility] Urine Blood Negative Negative [facility] Specific [place] - Urine 1.025 1.005 - 1.025 [facility] Urine Protein Negative Neg-Trace mg/dL [facility] Urine Ketones Negative Negative mg/dL [facility] Nitrite Urine Negative Negative [facility] Leukocyte Esterase Urine Negative Negative [facility] 02/18/2025 3:57 PM EST 02/18/2025 4:15 PM EST Narrative [facility] - 02/18/2025 4:22 PM EST [id number], Clean Catch us Generic External Data Provider LAB URINE ORDERAB LES Final Result Performing Organization Address City/State/[facility] Co de Phone Number [facility] [address] [place] [phone] * XR Lumbar Spine Complete 4+ Views (02/07/2025 1:58 PM EST) Anatomical Region Laterality Modality Spine, L-spine Radiographic Bere ging 02/07/2025 1:58 PM EST Narrative 02/07/2025 2:50 PM EST [address] [address] XRay Report Signed Patient: Erickson Holbrook MR#: [id number] : 1980 Acct:[id number] Age/Sex: 44 / M ADM Date: 01/26/25 Loc: [facility] 508-[address]: Cynthia Bal APRN Ordering Physician: Cynthia Bal APRN Date of Service: 02/07/25 Procedure(s): XR lumbar spine 4V min Accession Number(s): [id number] cc: Cynthia Bal APRN; Peace Harvey MD [...] Tremaine Barboza MD 02/07/2025 02:47 PM EST Dictated By: Tremaine Gibbs MD Signed By: <Electronically signed by Tremaine Judd MD in OV> 02/07/25 1447 DD/ 1358 TD/TT: 02/07/25 1405 Biomass Facilitator: Procedure Note Donotuseinterpreter, Image - 02/07/2025 [place] [address] XRay Report Signed Patient: Erickson Holbrook LMR#: [id number] : 1980Acct:[id number] Age/Sex: 44 / MADM Date: 01/26/25 Loc: [facility] 508-[address]: Cynthia Bal APRN Ordering Physician: Cynthia Bal APRN Date of Service: 02/07/25 Procedure(s): XR lumbar spine 4V min Accession Number(s): [id number] cc: Cynthia Bal APRN; Peace Harvey MD [...] 02/07/25 1447 DD/ 1358 TD/TT: 02/07/25 1405 Biomass Facilitator: [facility] External Provider IMG XR PROCEDURES Edited Result - Final * CT Head w/o Contrast (02/05/2025 12:13 PM EST) Anatomical Region Laterality Modality Head, Neck Computed Tomogra phy 02/05/2025 12:1 3 PM EST Narrative 02/05/2025 12:16 PM EST [place] [address] CT Scan Report Signed Patient: Erickson Holbrook MR#: [id number] : 1980 Acct:[id number] Age/Sex: 44 / M ADM Date: 01/26/25 Loc: .[facility] 509-[address]: Cynthia Bal APRN Ordering Physician: Cynthia Bal APRN Date of Service: 02/05/25 Procedure(s): CT head/brain wo IV con Accession Number(s): [id number] cc: Cynthia Bal APRN; Peace Harvey MD Report Number: [id number]: Total DLP = 708.00 mGy-cm Reason for [...] in OV> 02/05/25 1214 DD/ 1213 TD/TT: 02/05/251212 Biomass Facilitator: Procedure Note Donotuseinterpreter, Image - 02/05/[address] [address] [address] Scan Report Signed Patient: Erickson Holbrook LMR#: [id number] : 1980Acct:[id number] Age/Sex: 44 / MADM Date: 01/26/25 Loc: .[facility] 509-[address]: Cynthia Bal APRN Ordering Physician: Cynthia Bal APRN Date of Service: 02/05/25 Procedure(s): CT head/brain wo IV con Accession Number(s): [id number] cc: Cynthia Bal APRN; Peace Harvey MD Report Number: [id number]: Total DLP = 708.00 mGy-cm Reason for [...] in OV> 02/05/25 1214 DD/ 1213 TD/TT: 02/05/251212 Biomass Facilitator: us [facility] External Provider IMG CT PROCEDURES Final Result * Hepatitis C Antibody with Reflex to HCV, RNA, Quantitative, Real-Time PCR (01/20/2024 12:05 PM EDT) Pathologist [facility] Hepatitis C Antibody Nonreactive Nonreactive [facility] Comment:Antibodies to HCV no t detected; does not exclude early acuteHCV infection. Blood Venous blood specimen / Unknown 01/20/2024 12:05 PM EDT 01/20/2024 1:10 PM EDT Result [facility] Peace Harvey MD LAB BLOOD ORDERABLES Final Result Performing Organization Address [facility]/ZIP Co de Phone Number [facility] [address] [place] [phone] * HIV-1/2 Antigen and Antibodies, Fourth Generation, with Reflexes (01/20/2024 12:05 PM EDT) Pathologist [facility] HIV AB/AG Nonreactive Nonreactive [facility] Comment:HIV-1 p24 Ag and/or HIV-1/HIV-2 Ab not detected.A test result that is nonreactive does not exclude thepossibility of exposure to or infection with HIV-1 and/orHIV-2. Nonreactive results in this assay for individualswith prior exposure to HIV-1 and/or HIV-2 may be due toantigen and antibody levels that are below the limit ofdetection of this assay.[employer] HIV Ag/Ab Combo assay result andsupplemental assay results should be interpreted inconjunction with the patient's clinical presentation,history and other laboratory results. If the results areinconsistent with clinical evidence, additional testing issuggested to confirm the result. Blood Venous blood specimen / Unknown 01/20/2024 12:05 PM EDT 01/20/2024 1:10 PM EDT Result [facility] Peace Harvey MD LAB BLOOD ORDERABLES Final Result Performing Organization Address City/[facility]/ZIP Co de Phone Number [facility] [address] [place] [phone] * (ABNORMAL) Lipid Panel, Standard (01/20/2024 12:05 PM EDT) Triglycerides 431(H) <150 mg/dL [facility] Comment:Desirable Triglyceri de: less than 150 mg/dLBorderline High Triglyceride 150-199 mg/dLHigh Triglyceride: 200-499 mg/dLVery High Triglyceride: greater than or equal to 5OO mg/dL Cholesterol 152 <200 mg/dL [facility] Comment:Desirable Cholestero l: less than 200 mg/dLBorderline High Cholesterol: 200-239 mg/dLHigh Cholesterol: greater than 239 mg/dL LDL Cholesterol Calculated TNP <100 mg/dL [facility] Comment:Unable to calculate the LDL. The formula of Friedwald,Villarreal, and Ron is only valid if the triglycerides areless than 400 mg/dl. HDL Cholesterol 36(L) >40 mg/dL [facility] Comment:Desirable HDL: great er than 40 mg/dL Note: This HDL assay may give artificially low results in patients with liver disease. 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
[2025-03-16 14:56] LABS: Alanine Aminotransferase 27 U/L (0-40); Albumin Level 4.6 g/dL (3.5-5.0); Alkaline Phosphatase 87 U/L (39-117); Anion Gap 12 (12-20); Aspartate Amino Transferase 33 U/L (5-37); Blood Urea Nitrogen 12 mg/dL (9-16); Calcium 9.6 mg/dL (8.4-10.2); Carbon Dioxide 27 mmol/L (22-29); Chloride 105 mmol/L (96-108); Cholesterol 161 mg/dL (<200); Estimated Glomerular Filt Rate > 60; HDL Cholesterol 34 mg/dL (>40); Iron 89 mcg/dL (45-160); Percent Iron Saturation 32 % (15-50); Potassium 4.1 mmol/L (3.3-5.1); Sodium 140 mmol/L (135-145); Total Iron Binding Capacity 282 mcg/dL (228-428); Total Protein 6.9 g/dL (6.5-8.0); Triglycerides 296 mg/dL (<150); Unsaturated Iron Binding 193 ug/dL
[2025-03-16 15:15] LABS: Ferritin 367 ng/mL (20-250)
[2025-03-16 16:10] LABS: Folate 10.4 ng/mL (> or = 4.0); Vitamin B12 398 pg/mL (200-900)
[2025-03-17 04:21] LABS: HIV Num 1 0.09 S/CO (0.00-0.99); ~HepC Num1 0.08 S/CO (0.00-0.79); ~Hepatitis C Antibody Nonreactive (Nonreactive)
[2025-03-17 04:53] LABS: Syphilis Screen Nonreactive (Nonreactive)
== END 2025-03-16 10:34 | disposition home or self-care (01) ==
LOC: HO.HHCL 10:33
PROVIDERS: PCP Family Medicine; Visit Provider Family Medicine
DX: E11.9 Type 2 diabetes mellitus without complications (principal); E78.5 Hyperlipidemia, unspecified; D64.9 Anemia, unspecified; Z20.2 Contact with and (suspected) exposure to infections with a predominantly sexual mode of transmission; Z11.4 Encounter for screening for human immunodeficiency virus [HIV]
CPT/HCPCS: 80048; 80061; 80076; 82043; 82570; 82607; 82728; 82746; 83036; 83540; 84443; 85025; 86780; 86803; 87389; 87491; 87591